=== PATIENT | female | born 1940 | race Caucasian/White ===

== ENCOUNTER 2020-05-08 15:48 | Outpatient (CLI) | payer MEDICARE, SELFPAY ==
--- NOTE | ~2020-05-08 | XR_ITS ---
XR knee RT 3V DATE: 05/08/2020 16:12 INDICATION: Right knee pain for 3 days. Lateral and posterior pain. TECHNIQUE: [place] and standing AP and lateral views COMPARISON: None FINDINGS: There is moderately severe loss of height at the lateral compartment joint space. There is minimal [place]-articular spurring of the patella. No fracture or dislocation. There is mild joint effusion. No radiopaque intra-articular loose body or chondrocalcinosis. IMPRESSION: Osteoarthritis, mild joint effusion Reviewed, dictated and finalized at location A.
== END 2020-05-08 15:49 | disposition home or self-care (01) ==
LOC: ANHIMG 15:52
PROVIDERS: PCP Family Medicine; Visit Provider Family Medicine
DX: M17.11 Unilateral primary osteoarthritis, right knee (principal); M25.461 Effusion, right knee
CPT/HCPCS: 73562

== ENCOUNTER 2020-09-19 09:07 | Outpatient (CLI) | payer MEDICARE, SELFPAY ==
--- NOTE | ~2020-09-19 | MM_ITS ---
EXAMINATION: MM screening joseph BI w rk HISTORY: Screening mammogram TECHNIQUE: Craniocaudal and mediolateral oblique 3-D tomosynthesis images were obtained and synthetic 2-D images were generated. CAD analysis was submitted and interpreted. COMPARISON: 09/09/2019, 09/07/2018, 09/14/2017 bilateral digital screening mammogram examinations BREAST PARENCHYMAL COMPOSITION: There are scattered areas of fibroglandular density. FINDINGS: There is a small group of microcalcifications in the anterior inner right breast; magnifica tion views are recommended. Scattered benign calcifications are noted elsewhere in each breast. There is no evidence of suspicious mass, calcification, or architectural distortion to suggest malig dilma in either breast. There has been no suspicious interval change. IMPRESSION: 1. New small group of microcalcifications in the anterior inner right breast. 2. Recommend diagnostic right mammogram with magnification views. BI-RADS Category 0: Incomplete: Needs additional imaging evaluation. Reviewed, dictated and finalized at location A. AURANT MANAGING PARTNER
== END 2020-09-19 09:08 | disposition home or self-care (01) ==
LOC: ANHIMG 09:14
PROVIDERS: PCP Family Medicine; Visit Provider Family Medicine
DX: Z12.31 Encounter for screening mammogram for malignant neoplasm of breast (principal); R92.8 Other abnormal and inconclusive findings on diagnostic imaging of breast
CPT/HCPCS: 77063; 77067

== ENCOUNTER 2020-11-20 12:46 | Outpatient (CLI) | payer MEDICARE, SELFPAY ==
--- NOTE | ~2020-11-20 | MM_ITS ---
EXAMINATION: MM diagnostic mammo unilat RT HISTORY: Follow-up right breast calcifications TECHNIQUE: Additional 3-D tomosynthesis images of the right breast were performed and synthetic 2-D i mages were generated. CAD analysis was submitted and interpreted. COMPARISON: Comparison to multiple prior studies sequentially, with oldest reviewed study dated 02/2015. BREAST PARENCHYMAL COMPOSITION: Breast composed of scattered areas of fibroglandular density. FINDINGS: There are clustered indeterminate calcifications in the upper inner quadrant of the right b reast, middle third which are likely benign. There are no suspicious masses or architectural distorti on. IMPRESSION: 1. Probable benign right breast calcifications. 2. Recommend 6 month follow-up diagnostic right mammogram BI-RADS category 3, probably benign findings. Reviewed, dictated and finalized at location A. STAVE ASSEMBLER
== END 2020-11-20 12:47 | disposition home or self-care (01) ==
LOC: ANHIMG 12:47
PROVIDERS: PCP Family Medicine; Visit Provider Family Medicine
DX: R92.8 Other abnormal and inconclusive findings on diagnostic imaging of breast (principal)
CPT/HCPCS: 77065

== ENCOUNTER 2021-04-27 11:57 | Outpatient (CLI) | payer MEDICARE, SELFPAY ==
--- NOTE | ~2021-04-27 | US_ITS ---
EXAMINATION: US venous doppler LE RT DATE: 04/27/2021 12:43 INDICATION: Right lower limb pain. TECHNIQUE: Grayscale ultrasound images without and with compression and Doppler ultrasound images of the right lower extremity veins were obtained. COMPARISON: Ultrasound 01/11/2005 FINDINGS: The visualized portions of right common femoral vein, profunda (deep) femoral vein, femoral vein, pop liteal vein, peroneal veins, posterior tibial veins, and greater saphenous vein outflow are patent. IMPRESSION: 1. No deep venous thrombosis. Reviewed, dictated and finalized at location A.
== END 2021-04-27 11:58 | disposition home or self-care (01) ==
LOC: ANHIMG 12:04
PROVIDERS: PCP Family Medicine; Visit Provider Nurse Practitioner Family
DX: M79.604 Pain in right leg (principal)
CPT/HCPCS: 93971

== ENCOUNTER 2021-05-03 10:00 | Inpatient (IN) | payer MEDICARE, SELFPAY ==
[2021-05-03] VITALS (7 sets, daily range): BP systolic 130–156; BP diastolic 64–78; PULSE 16–85; RESP 16–78; TEMP 36.1–37; O2SAT 99–100; BMI 24.2; BMI 24.5
--- NOTE | ~2021-05-03 | CT_ITS ---
EXAMINATION: CT abdomen pelvis w con DATE: 05/03/2021 12:23 INDICATION: Diverticulitis. Diarrhea. TECHNIQUE: Computed tomography (CT) of the abdomen and pelvis was performed with 100 mL Omnipaque 350 intravenous contrast. Automated exposure control and iterative reconstruction technique were employe d. The dose-length product was 334.13 mGy-cm. COMPARISON: CT abdomen and pelvis 06/21/2016 FINDINGS: The visualized portions of the lung bases demonstrate mild atelectasis. No pleural effusion . The heart size is normal. No pericardial effusion. There is a large sliding hiatal hernia. There ar e cysts in the liver measuring up to 3.2 cm. Calcifications in the spleen are consistent with old gra nulomatous disease. There are changes of cholecystectomy. The pancreas and adrenal glands are normal. There is cortical thinning of the kidneys. There are cysts in the kidneys measuring up to 2.0 cm on the left. There is diverticulosis of the colon without evidence of diverticulitis. There is liquid st ool in the colon correlating with the symptom of diarrhea. The appendix is normal. There are no patho logically enlarged lymph nodes. There is no free intraperitoneal fluid. There is a small supraumbilic al ventral hernia containing fat. There is a hernia in posterior right rectus sheath containing fat. There is thoracolumbar dextroscoliosis and mild spondylosis. There is a hemangioma in T10 vertebral b roni. IMPRESSION: 1. Diverticulosis of the colon without evidence of diverticulitis. 2. Large sliding hiatal hernia. Reviewed, dictated and finalized at location A.
--- NOTE | ~2021-05-03 | US_ITS ---
EXAMINATION: US venous doppler [facility] DATE: 05/04/2021 12:20 INDICATION: Lower limb pain. TECHNIQUE: Grayscale ultrasound images without and with compression and Doppler ultrasound images of the bilateral lower extremity veins were obtained. COMPARISON: Ultrasound 04/27/2021 FINDINGS: The visualized portions of right common femoral vein, profunda (deep) femoral vein, femoral vein, pop liteal vein, peroneal veins, posterior tibial veins, and greater saphenous vein outflow are patent. The visualized portions of left common femoral vein, profunda femoral vein, femoral vein, popliteal v ein, peroneal veins, posterior tibial veins, and greater saphenous vein outflow are patent. IMPRESSION: 1. No deep venous thrombosis. Reviewed, dictated and finalized at location A.
--- NOTE | ~2021-05-03 | XR_ITS ---
EXAMINATION: XR knee RT 3V EXAM DATE: 05/03/2021 11:12 INDICATION: Right knee pain, symptoms 2 weeks. TECHNIQUE: Three projections of the right knee. Comparison is made to prior examination from 0. FINDINGS: No evidence osteochondral defect or joint body in the right knee joint. There are no acut e fractures or dislocations identified. There is no subcutaneous gas. There is trace joint effusion . There are no radiopaque foreign bodies. There is mild primary osteoarthritis. IMPRESSION: 1. Mild right knee osteoarthritis. 2. Trace joint effusion. Reviewed, dictated and finalized at location B.
[2021-05-03 11:21] LABS: Basophils Absolute Auto 0.1 K/mm3 (0.0-0.1); Basophils Percent Auto 0.3 % (0.2-1.2); Eosinophils Absolute Auto 0.1 K/mm3 (0-0.3); Eosinophils Percent Auto 0.5 % (0-4.4); Hematocrit 35.5 % (37.0-47.0); Hemoglobin 12.4 g/dL (12.0-15.0); Immature Granulocyte Absolute 0.19 K/mm3 (0.00-0.031); Immature Granulocyte Percent A 1.1 % (0-0.5); Lymphocytes Absolute Auto 1.92 K/mm3 (0.9-3.2); Lymphocytes Percent Auto 10.9 % (18.3-44.2); Mean Corpuscular HGB Conc 34.9 g/dl (32-36); Mean Corpuscular Hemoglobin 31.8 pg (26-34); Mean Platelet Volume 8.4 fl (7.4-10.4); Monocytes Absolute Auto 1.1 K/mm3 (0.1-0.6); Neutrophils Absolute Auto 14.3 K/mm3 (1.3-6.7); Neutrophils Percent Auto 81.2 % (45.5-73.1); Platelet Count Result 420 k/mm3 (150-375); Red Cell Distribution Width 12.6 % (11.5-14.5); White Blood Count 17.6 K/mm3 (4.5-10.0)
[2021-05-03 11:52] LABS: Anion Gap 8 mmol/L (8-16); Blood Urea Nitrogen 5 mg/dL (7-17); Calcium 9.3 mg/dL (8.4-10.2); Carbon Dioxide 27 mmol/L (22-30); Chloride 98 mmol/L (98-107); Estimated CRCL calculation 70 ml/min; Estimated Glomerular Filt Rate > 60; Glucose 113 mg/dL (65-105); Potassium 2.5 mmol/L (3.4-5.0); Sodium 133 mmol/L (137-145)
--- NOTE | 2021-05-03 11:54 | ECG_ITS ---
Measurements Intervals [place] Rate: 72 P: 28 MI: 220 QRS: -15 QRSD: 89 T: -26 QT: 381 QTc: 419 Interpretive Statements SINUS RHYTHM WITH FIRST DEGREE AV BLOCK VOLTAGE CRITERIA FOR LVH MINIMAL Q WAVES- HIGH LATERAL LEADS NONSPECIFIC T-WAVE ABNORMALITY- ANTEROLAT/INF LEADS BASELINE ARTIFACT- I, III, AVL, AVF ABNORMAL ECG Electronically Signed On 05-03-2021 15:30:06 CDT by Cain Pederson D.O.
[2021-05-03] MEDS: SODIUM CHLORIDE 0.9% IV 1,000 ML 999 ML IV CONT (12:00)
[2021-05-03] MEDS: KETOROLAC 15 MG/ML VIAL (*BKC) 10 MG IV PUSH (12:01)
[2021-05-03 12:03] LABS: Alanine Aminotransferase 6 U/L (4-35); Albumin Level 3.2 g/dL (3.5-5.1); Alkaline Phosphatase 58 U/L (38-126); Aspartate Amino Transferase 16 U/L (14-36); Bilirubin,Total 0.6 mg/dL (0.2-1.3); Lipase 292 U/L (23-300)
[2021-05-03 12:13] LABS: Add Urine Microscopic? YES; Appearance Urine Clear (Clear); Bilirubin Urine Negative (Negative); Blood Urine Negative (Negative); Color Urine Yellow (Yellow); Glucose Urine UA Negative (Negative); Ketones Urine Trace mg/dL (Negative); Leukocyte Esterase Ur Trace LEU/UL (Negative); Nitrate Urine Negative (Negative); Protein Urine 1+ mg/dL (Negative); RBC Urine 0-2 /hpf (0-2); Squamous Epithelial Cell Urine Rare /hpf (Few); Urobilinogen Urine Negative mg/dL (<2.0); WBC Urine 16-20 /hpf
--- NOTE | 2021-05-03 13:18 | ED.GENADULT ---
HPI - General Adult General Chief complaint: Extremity Injury, Lower Stated complaint: leg pain Time Seen by Provider: 05/03/21 10:07 Source: patient, family, RN notes reviewed and old records reviewed Mode of arrival: ambulatory Limitations: no limitations History of Present Illness HPI narrative: Patient is 80-year-old female who presents to emergency department for evaluation of weakness over the last week noting that she is currently being treated for urinary tract infection. Patient notes that she has had some mild discomfort in the left flank area over the last 2 days, patient denies fever vomiting notes that she has had a few loose stools, patient also notes that she has been having left buttock pain rating down the leg involving the left leg for the last several days has been rehabbing from a right knee injury which is caused her gait to be off and now she was having more more difficulty with getting around secondary to her leg issues and weakness, Related Data Home Medications Medication Instructions Recorded Confirmed esomeprazole magnesium 20 mg 40 mg PO DAILY cap 11/15/19 04/27/21 capsule,delayed release metoprolol tartrate 50 mg tablet 50 mg PO BID tablet 04/18/21 04/27/21 Allergies Allergy/AdvReac Type Severity Reaction Status Date / Time Antihistamines - Alkylamine Allergy Unknown Unknown Verified 04/27/21 11:10 Sulfa (Sulfonamide Allergy Unknown Unknown Verified 04/27/21 11:10 Antibiotics) ANTIHISTAMINE AdvReac Mild NERVOUSNESS, Uncoded 04/27/21 11:10 AGITATION Review of Systems Review of Systems: All systems reviewed & are unremarkable except as noted in HPI and below PMFSH Past Medical History Medical History Esophagitis Essential (primary) hypertension GERD without esophagitis Hiatal hernia History of esophageal stricture Hypertension Hypertriglyceridemia Intermittent low back pain Osteopenia Sciatica Surgical History Surgical History History of cholecystectomy History of esophageal dilatation 1990 History of hysterectomy 1989 History of partial thyroidectomy Family History Family History Father Family history of cardiovascular disease Mother Carcinoma of colon Social History Social History Smoking status: Never smoker Second hand tobacco smoke exposure: No Alcohol intake: never Substance use: never Substance use type: does not use Gender identity (if verbalized by the patient): Female Exam Narrative: Exam Narrative: GENERAL: Well-appearing, well-nourished, and in no acute distress. HEAD: Normocephalic, atraumatic. EYES: PERRLA and EOMI. ENT: Nares clear, no rhinorrhea or epistaxis. Mucous membranes moist. CHEST: Clear to auscultation. No respiratory distress. No wheezes rales or rhonchi HEART: Regular rate and rhythm. No murmur heard. Normal peripheral pulses. ABDOMEN: Soft, left flank tenderness no rebound or guarding, nondistended EXTREMITIES: Normal range of motion. No edema. SKIN: Warm, dry, no rash. NEURO: No focal deficits. Alert and oriented x3. Cranial nerves II through XII grossly intact. Normal speech. Neurovascularly intact. Capillary refill less than 2-second PSYCH: Normal mood and affect. Course Course Emergency Course: Patient evaluated in the emergency department for lower extremity pain and weakness found to have hypokalemia and continued urinary tract infection will be brought in hospital for these issues patient given potassium in the emergency department made aware of her case findings treatment plan and diagnosis and is agreeing to this plan Consultations Consultation #1: Discussed case with Aide the hospitalist who has agreed to accept the patient Date: 05/03/21 Vital Signs Vital signs: Vital Si
[2021-05-03 13:49] LABS: Magnesium 1.1 mg/dL (1.6-2.3); Phosphorus 3.1 mg/dL (2.5-4.5)
[2021-05-03] MEDS: LACTATED RINGERS 1,000 ML 75 ML IV CONT (14:01)
--- NOTE | 2021-05-03 14:15 | PCOTNOTE ---
OT evaluation attempted, patient not yet admitted to unit from ED. Will attempt at later time.
--- NOTE | 2021-05-03 15:12 | ADMGEN ---
This patient, Shonda Min, was admitted to [facility] Surg Room 312-01. Patient/family oriented to hospital policies and general routines including ID bracelet, bed and alarms, visiting hours, pain management, procedures, bathroom and other care routines, personal items, smoking policy, room service/diet, and visiting hours. Information on how to activate the Rapid Response Team has been discussed. Patient/Family are encouraged to report perceived risks to care and to ask questions if they do not understand what they are told or what they should do.
[2021-05-03] MEDS: MAGNESIUM SULFATE 3GM/D5W100ML 3 GM/100 ML BAG IVPB (17:12)
--- NOTE | 2021-05-03 18:00 | PM.IMHP ---
H&P: HPI History of Present Illness Date/Time: 05/03/21 18:00 Chief Complaint: Weakness. Narrative: This is a 80-year-old female with hypertension and GERD who presented to the emergency department earlier today via private vehicle from home for evaluation of generalized weakness. She recently finished a course of cefdinir for a urinary tract infection and she reports improvement in her symptoms though continues to have mild urgency and incontinence. Sometime during her treatment she began experiencing pain in her right knee and was told by her primary care provider that she must have twisted it and she has been treating that symptomatically with improvement however more recently she has been having discomfort in her left leg which she believes is due to compensation for the right knee pain. The patient believes that this is caused her to become more weak and she came in today for evaluation. Both her potassium and magnesium levels were quite low and on review of previous labs it looks like she frequently has mild electrolyte abnormalities though she continues to be on triamterene/hydrochlorothiazide. With further questioning she also mentions having frequent loose stools, typically occurring within about 30 minutes of eating a meal. Over the weekend she had increasing episodes of diarrhea, approximately 12 in a 24 hour time period, even occurring at night. She has been taking Imodium and another anti diarrheal that she cannot recall the name of with some improvement in her diarrhea though it remains. Her stool is foul smelling and dark brown/green in color. No fever, chills, or sweats. No melena or hematochezia. No abdominal pain or cramping. She has no sick contacts. No history of C diff. Review of Systems Review of Systems: Narrative: 12 systems were reviewed with pertinent positives and negatives as per HPI. No recent falls. She denies lightheadedness and dizziness. No paresthesias or focal weakness. She denies saddle anesthesia. No cold or flu symptoms. No known exposure to those positive for COVID-19. No history of gout. No history of VTE. No melena or hematochezia. She belches frequently but states her GERD symptoms are well controlled. She has her head of bed elevated which helps her symptoms. Reports frequent lower extremity edema which improves by morning. Except as documented, all other systems were reviewed and are negative. [facility] Past Medical History Medical History (Updated 05/03/21 @ 22:15 by Aide Sanchez PA-C) Esophagitis Essential hypertension Gastroesophageal reflux disease Hiatal hernia History of esophageal stricture History of kidney stones Hypertension Hypertriglyceridemia Intermittent low back pain Osteopenia Sciatica Surgical History Surgical History (Updated 05/03/21 @ 16:56 by Aide Sanchez PA-C) History of cholecystectomy History of colonoscopy with polypectomy History of esophageal dilatation (~1990) History of hysterectomy (~1989) History of partial thyroidectomy Left. Family History Family History Father Family history of cardiovascular disease Mother Carcinoma of colon Sibling Heart attack Social History Social History Social History: Surrogate decision maker: Morris Min, spouse. Code status: Full code. Smoking status: Never smoker Second hand tobacco smoke exposure: No Alcohol intake: never Substance use: never Substance use type: does not use Additional living arrangements comments: The patient lives in [place] with her . Additional occupation/education comments: Retired. Sexual Orientation (if Verbalized by the Patient): . Meds Home Medications and Allergies Home Medications Medication Instructions Recorded Confirmed Type esomeprazole magnesium 20 mg 40 mg PO DAILY cap 11/15/19 05/03/21 History capsule
[2021-05-03 19:09] LABS: CRP 7.3 mg/dL (<1.0)
[2021-05-03] MEDS: METOPROLOL TARTRATE 50 MG TAB PO (20:29)
[2021-05-03] MEDS: ACETAMINOPHEN 325 MG TABLET 650 MG PO (20:31)
[2021-05-03 22:28] LABS: Anion Gap 6 mmol/L (8-16); Blood Urea Nitrogen 4 mg/dL (7-17); Calcium 8.9 mg/dL (8.4-10.2); Carbon Dioxide 25 mmol/L (22-30); Chloride 100 mmol/L (98-107); Estimated CRCL calculation 59 ml/min; Estimated Glomerular Filt Rate > 60; Glucose 105 mg/dL (65-105); Magnesium 1.9 mg/dL (1.6-2.3); Potassium 2.6 mmol/L (3.4-5.0); Sodium 131 mmol/L (137-145)
[2021-05-03] MEDS: POTASSIUM CHLORIDE 20 MEQ PACKET (FOR LIQUID) PO (23:10)
[2021-05-04] VITALS (10 sets, daily range): BP systolic 119–148; BP diastolic 58–78; PULSE 72–92; RESP 18–20; TEMP 36.4–37.1; O2SAT 97–100
[2021-05-04] MEDS: LACTATED RINGERS 1,000 ML 75 ML IV CONT (03:35)
[2021-05-04] MEDS: ACETAMINOPHEN 325 MG TABLET 650 MG PO ×2 (03:37→18:01)
[2021-05-04 06:28] LABS: Alkaline Phosphatase 57 U/L (38-126); Anion Gap 7 mmol/L (8-16); Aspartate Amino Transferase 13 U/L (14-36); Bilirubin,Total 0.4 mg/dL (0.2-1.3); Blood Urea Nitrogen 2 mg/dL (7-17); Calcium 9.1 mg/dL (8.4-10.2); Carbon Dioxide 25 mmol/L (22-30); Chloride 100 mmol/L (98-107); Estimated CRCL calculation 59 ml/min; Estimated Glomerular Filt Rate > 60; Glucose 102 mg/dL (65-105); Potassium 2.9 mmol/L (3.4-5.0); Sodium 132 mmol/L (137-145)
[2021-05-04 06:33] LABS: Basophils Percent Auto 0.3 % (0.2-1.2); Eosinophils Absolute Auto 0.1 K/mm3 (0-0.3); Eosinophils Percent Auto 0.7 % (0-4.4); Hematocrit 34.3 % (37.0-47.0); Hemoglobin 11.6 g/dL (12.0-15.0); Immature Granulocyte Absolute 0.13 K/mm3 (0.00-0.031); Immature Granulocyte Percent A 0.9 % (0-0.5); Lymphocytes Absolute Auto 2.05 K/mm3 (0.9-3.2); Lymphocytes Percent Auto 14.7 % (18.3-44.2); Mean Corpuscular HGB Conc 33.8 g/dl (32-36); Mean Corpuscular Hemoglobin 31.5 pg (26-34); Mean Corpuscular Volume 93.2 fl (80-100); Mean Platelet Volume 8.8 fl (7.4-10.4); Monocytes Absolute Auto 0.8 K/mm3 (0.1-0.6); Monocytes Percent Auto 5.7 % (2.6-8.5); Neutrophils Absolute Auto 10.8 K/mm3 (1.3-6.7); Neutrophils Percent Auto 77.7 % (45.5-73.1); Platelet Count Result 387 k/mm3 (150-375); Red Blood Count 3.68 M/mm3 (4.2-5.4); Red Cell Distribution Width 12.4 % (11.5-14.5)
[2021-05-04 06:35] LABS: Magnesium 1.8 mg/dL (1.6-2.3)
[2021-05-04] MEDS: METOPROLOL TARTRATE 50 MG TAB PO ×2 (08:13→20:08)
[2021-05-04] MEDS: PANTOPRAZOLE 40 MG TABLET PO (08:14)
[2021-05-04] MEDS: POTASSIUM CHLORIDE 20 MEQ PACKET (FOR LIQUID) PO (08:14)
[2021-05-04] MEDS: ENOXAPARIN 40 MG/0.4 ML SYRINGE SUB-Q (08:19)
[2021-05-04 10:32] LABS: Alanine Aminotransferase 6 U/L (4-35)
--- NOTE | 2021-05-04 13:43 | P.PNIM_ITS ---
Progress Note: A&P Assessment and Plan (1) Recent urinary tract infection: Code(s): Z87.440 - Personal history of urinary (tract) infections Status: Acute Assessment and Plan: * Patient finished a course of cefdinir. * Trace leukocyte esterase and 16 to 20 WBC's noted on urinalysis * ceftriaxone 1g daily * urine culture pending * Deescalate antibiotics with resulted cultures * LR 75ml/hr for hydration (2) Hypokalemia: Code(s): E87.6 - Hypokalemia Status: Acute Assessment and Plan: * Potassium 2.9 * 20mcq of potassium replaced * potassium scheduled 20mcg daily * trend labs * labs in the am (3) Hypomagnesemia: Code(s): E83.42 - Hypomagnesemia Status: Acute Assessment and Plan: * Mag 1.8 today * Replace as needed * Trend labs * labs in the am (4) Leukocytosis: Code(s): D72.829 - Elevated white blood cell count, unspecified Status: Acute Assessment and Plan: * WBC 14 today * Labs in the am * Trend labs * Could be from UTI, C. Diff, or inflammatory process * C.Diff is pending (5) Essential hypertension: Code(s): I10 - Essential (primary) hypertension Status: Acute Assessment and Plan: * BP 119/61 * Continue home metoprolol 50 BID * Trend blood pressure * Adjust medication as needed (6) Generalized weakness: Code(s): R53.1 - Weakness Status: Acute Assessment and Plan: * Likely due to electrolyte abnormalities and suspected underlying infection. * No focal findings. * PT/OT consulted. (7) Lower extremity edema: Code(s): R60.0 - Localized edema Status: Acute Assessment and Plan: * It sounds as though she suffers from dependent edema and at times heat induced edema. * Given pain in both legs will obtain * venous Doppler ultrasounds showed no signs of DVT Subjective Date/time seen: 05/04/21 13:15 Interval history: This is a 80-year-old female with hypertension and GERD who presented to the emergency department from home for evaluation of generalized weakness. Today patient stated that she is feeling a little better, but she is still having several episodes of diarrhea, that she stated to have changed to green and watery with floating particles. She stated that she has had about 4 episodes of diarrhea already today. Her appetite is borderline. She denies chest pain, shortness of breath, nausea, vomiting, dizziness, constipation, or headache. She did state that she does have LLQ pain that is cramping in nature. Review of Systems Review of Systems: All systems reviewed & are unremarkable except as noted in HPI and below Exam Const: General: cooperative, healthy appearing, no acute distress, well developed, alert and awake Nutritional Appearance: average body habitus and well nourished Orientation/consciousness: oriented to person, oriented to place, oriented to time and patient oriented x3 Limitations: no limitations HENMT: Head: normal to inspection Ears: hearing grossly normal bilaterally General nose exam: Normal external nose present Mouth: Yes Normal oral and palatal mucosa present, Yes lip normal and Yes tongue normal Teeth and gingiva: abnormal tooth and associated gingiva and poor dentition Eyes: General: appearance normal, both eyes and all related structures Ne
--- NOTE | 2021-05-04 13:43 | PM.IMPN ---
Progress Note: A&P Assessment and Plan (1) Recent urinary tract infection: Code(s): Z87.440 - Personal history of urinary (tract) infections Status: Acute Assessment and Plan: Patient finished a course of cefdinir. Trace leukocyte esterase and 16 to 20 WBC's noted on urinalysis ceftriaxone 1g daily urine culture pending Deescalate antibiotics with resulted cultures LR 75ml/hr for hydration (2) Hypokalemia: Code(s): E87.6 - Hypokalemia Status: Acute Assessment and Plan: Potassium 2.9 20mcq of potassium replaced potassium scheduled 20mcg daily trend labs labs in the am (3) Hypomagnesemia: Code(s): E83.42 - Hypomagnesemia Status: Acute Assessment and Plan: Mag 1.8 today Replace as needed Trend labs labs in the am (4) Leukocytosis: Code(s): D72.829 - Elevated white blood cell count, unspecified Status: Acute Assessment and Plan: WBC 14 today Labs in the am Trend labs Could be from UTI, C. Diff, or inflammatory process C.Diff is pending (5) Essential hypertension: Code(s): I10 - Essential (primary) hypertension Status: Acute Assessment and Plan: BP 119/61 Continue home metoprolol 50 BID Trend blood pressure Adjust medication as needed (6) Generalized weakness: Code(s): R53.1 - Weakness Status: Acute Assessment and Plan: Likely due to electrolyte abnormalities and suspected underlying infection. No focal findings. PT/OT consulted. (7) Lower extremity edema: Code(s): R60.0 - Localized edema Status: Acute Assessment and Plan: It sounds as though she suffers from dependent edema and at times heat induced edema. Given pain in both legs will obtain venous Doppler ultrasounds showed no signs of DVT Subjective Date/time seen: 05/04/21 13:15 Interval history: This is a 80-year-old female with hypertension and GERD who presented to the emergency department from home for evaluation of generalized weakness. Today patient stated that she is feeling a little better, but she is still having several episodes of diarrhea, that she stated to have changed to green and watery with floating particles. She stated that she has had about 4 episodes of diarrhea already today. Her appetite is borderline. She denies chest pain, shortness of breath, nausea, vomiting, dizziness, constipation, or headache. She did state that she does have LLQ pain that is cramping in nature. Review of Systems Review of Systems: All systems reviewed & are unremarkable except as noted in HPI and below Exam Const: General: cooperative, healthy appearing, no acute distress, well developed, alert and awake Nutritional Appearance: average body habitus and well nourished Orientation/consciousness: oriented to person, oriented to place, oriented to time and patient oriented x3 Limitations: no limitations HENMT: Head: normal to inspection Ears: hearing grossly normal bilaterally General nose exam: Normal external nose present Mouth: Yes Normal oral and palatal mucosa present, Yes lip normal and Yes tongue normal Teeth and gingiva: abnormal tooth and associated gingiva and poor dentition Eyes: General: appearance normal, both eyes and all related structures Neck: Neck: normal visual inspection, full ROM, trachea midline and supple Chest: Chest palpation & inspection: normal inspection of the chest Resp: Effort & Inspection: normal respiratory effort and able to speak in complete sentences Auscultation: clear to auscultation bilaterally Cardio: Jugular venous distension: no JVD Rate: regular rate Rhythm: regular rhythm Heart sounds: S1 normal heart sound present and S2 normal heart sound present Peripheral pulses: Peripheral pulses 2+ throughout GI: Inspection: normal to inspection GI Palp: Yes Soft to palpation and No
--- NOTE | 2021-05-04 14:45 | PCNSR ---
On 05/04/21, the student, [Saloni Barry ], provided care and completed [facility] documentation on this patient. I have reviewed the student's documentation and agree with the findings.
[2021-05-04 17:06] LABS: Potassium 2.8 mmol/L (3.4-5.0)
[2021-05-04] MEDS: POTASSIUM CHLORIDE 20 MEQ TABLET 40 MEQ PO (18:00)
[2021-05-05] VITALS (8 sets, daily range): BP systolic 140–169; BP diastolic 75–88; PULSE 71–85; RESP 20; TEMP 36.6; O2SAT 97–99
[2021-05-05 06:32] LABS: Basophils Percent Auto 0.3 % (0.2-1.2); Eosinophils Absolute Auto 0.1 K/mm3 (0-0.3); Eosinophils Percent Auto 1.2 % (0-4.4); Hematocrit 34.2 % (37.0-47.0); Hemoglobin 11.4 g/dL (12.0-15.0); Immature Granulocyte Absolute 0.07 K/mm3 (0.00-0.031); Immature Granulocyte Percent A 0.7 % (0-0.5); Lymphocytes Absolute Auto 2.08 K/mm3 (0.9-3.2); Lymphocytes Percent Auto 19.5 % (18.3-44.2); Mean Corpuscular HGB Conc 33.3 g/dl (32-36); Mean Corpuscular Volume 92.9 fl (80-100); Mean Platelet Volume 8.7 fl (7.4-10.4); Monocytes Absolute Auto 0.6 K/mm3 (0.1-0.6); Monocytes Percent Auto 5.9 % (2.6-8.5); Neutrophils Absolute Auto 7.7 K/mm3 (1.3-6.7); Neutrophils Percent Auto 72.4 % (45.5-73.1); Platelet Count Result 390 k/mm3 (150-375); Red Blood Count 3.68 M/mm3 (4.2-5.4); Red Cell Distribution Width 12.4 % (11.5-14.5); White Blood Count 10.7 K/mm3 (4.5-10.0)
[2021-05-05 06:41] LABS: Alkaline Phosphatase 54 U/L (38-126); Anion Gap 6 mmol/L (8-16); Aspartate Amino Transferase 14 U/L (14-36); Bilirubin,Total 0.4 mg/dL (0.2-1.3); Blood Urea Nitrogen 2 mg/dL (7-17); Calcium 9.7 mg/dL (8.4-10.2); Carbon Dioxide 28 mmol/L (22-30); Chloride 100 mmol/L (98-107); Estimated CRCL calculation 59 ml/min; Estimated Glomerular Filt Rate > 60; Glucose 100 mg/dL (65-105); Magnesium 1.5 mg/dL (1.6-2.3); Potassium 3.5 mmol/L (3.4-5.0); Sodium 134 mmol/L (137-145)
[2021-05-05 07:11] LABS: Alanine Aminotransferase < 6 U/L (4-35)
[2021-05-05] MEDS: PANTOPRAZOLE 40 MG TABLET PO (08:08)
[2021-05-05] MEDS: METOPROLOL TARTRATE 50 MG TAB PO (08:08)
[2021-05-05] MEDS: POTASSIUM CHLORIDE 20 MEQ PACKET (FOR LIQUID) PO (08:08)
--- NOTE | 2021-05-05 17:43 | P.PNIM_ITS ---
Progress Note: A&P Assessment and Plan (1) Recent urinary tract infection: Code(s): Z87.440 - Personal history of urinary (tract) infections Status: Acute Assessment and Plan: * Patient finished a course of cefdinir. * Trace leukocyte esterase and 16 to 20 WBC's noted on urinalysis * ceftriaxone 1g daily * urine culture pending * Deescalate antibiotics with resulted cultures * LR 75ml/hr for hydration (2) Hypokalemia: Code(s): E87.6 - Hypokalemia Status: Acute Assessment and Plan: * Potassium 2.9 * 20mcq of potassium replaced * potassium scheduled 20mcg daily * trend labs * labs in the am (3) Hypomagnesemia: Code(s): E83.42 - Hypomagnesemia Status: Acute Assessment and Plan: * Mag 1.8 today * Replace as needed * Trend labs * labs in the am (4) Leukocytosis: Code(s): D72.829 - Elevated white blood cell count, unspecified Status: Acute Assessment and Plan: * WBC 14 today * Labs in the am * Trend labs * Could be from UTI, C. Diff, or inflammatory process * C.Diff is pending (5) Essential hypertension: Code(s): I10 - Essential (primary) hypertension Status: Acute Assessment and Plan: * BP 119/61 * Continue home metoprolol 50 BID * Trend blood pressure * Adjust medication as needed (6) Generalized weakness: Code(s): R53.1 - Weakness Status: Acute Assessment and Plan: * Likely due to electrolyte abnormalities and suspected underlying infection. * No focal findings. * PT/OT consulted. (7) Lower extremity edema: Code(s): R60.0 - Localized edema Status: Acute Assessment and Plan: * It sounds as though she suffers from dependent edema and at times heat induced edema. * Given pain in both legs will obtain * venous Doppler ultrasounds showed no signs of DVT Subjective Date/time seen: 05/05/21 17:43 Interval history: This is a 80-year-old female with hypertension and GERD who presented to the emergency department from home for evaluation of generalized weakness and diarrhea. 05/05: Review of Systems Review of Systems: All systems reviewed & are unremarkable except as noted in HPI and below Exam Narrative: Exam Narrative: General: well-developed elderly female sitting up in bed in no distress. Weight: 66.9 kg. BMI: 24.5. HEENT: PERRL, EOMI. Sclerae anicteric. [place] mucous membranes. Neck: Supple. No JVD. Respiratory: Lungs are clear to auscultation bilaterally. Cardiovascular: Regular rate and rhythm with S1-S2. Gastrointestinal: Abdomen is soft, nontender, and nondistended with positive bowel sounds. No voluntary guarding or rebound tenderness. No CVA tenderness. Skin: Warm and dry. No rash or lesions on limited exam. Extremities: No cyanosis or clubbing. 1+ pedal edema to mid traylor bilaterally. Negative Augustina sign bilaterally. Radial and pedal pulses intact. Musculoskeletal: Strength 5/5 in upper and lower extremities. Neurological: Alert. Cranial nerves 2-12 are grossly intact. No gross focal deficits to casual conversation. Psychiatric: Pleasant and cooperative with normal mood and affect. Judgment and insight intact. Objective Data Vital Signs Vital Signs: Vital Signs - 24 hr 05/04/21 20:00
--- NOTE | 2021-05-05 17:43 | PM.IMPN ---
Progress Note: A&P Assessment and Plan (1) Recent urinary tract infection: Code(s): Z87.440 - Personal history of urinary (tract) infections Status: Acute Assessment and Plan: Patient finished a course of cefdinir. Trace leukocyte esterase and 16 to 20 WBC's noted on urinalysis ceftriaxone 1g daily urine culture pending Deescalate antibiotics with resulted cultures LR 75ml/hr for hydration (2) Hypokalemia: Code(s): E87.6 - Hypokalemia Status: Acute Assessment and Plan: Potassium 2.9 20mcq of potassium replaced potassium scheduled 20mcg daily trend labs labs in the am (3) Hypomagnesemia: Code(s): E83.42 - Hypomagnesemia Status: Acute Assessment and Plan: Mag 1.8 today Replace as needed Trend labs labs in the am (4) Leukocytosis: Code(s): D72.829 - Elevated white blood cell count, unspecified Status: Acute Assessment and Plan: WBC 14 today Labs in the am Trend labs Could be from UTI, C. Diff, or inflammatory process C.Diff is pending (5) Essential hypertension: Code(s): I10 - Essential (primary) hypertension Status: Acute Assessment and Plan: BP 119/61 Continue home metoprolol 50 BID Trend blood pressure Adjust medication as needed (6) Generalized weakness: Code(s): R53.1 - Weakness Status: Acute Assessment and Plan: Likely due to electrolyte abnormalities and suspected underlying infection. No focal findings. PT/OT consulted. (7) Lower extremity edema: Code(s): R60.0 - Localized edema Status: Acute Assessment and Plan: It sounds as though she suffers from dependent edema and at times heat induced edema. Given pain in both legs will obtain venous Doppler ultrasounds showed no signs of DVT Subjective Date/time seen: 05/05/21 17:43 Interval history: This is a 80-year-old female with hypertension and GERD who presented to the emergency department from home for evaluation of generalized weakness and diarrhea. 05/05: Review of Systems Review of Systems: All systems reviewed & are unremarkable except as noted in HPI and below Exam Narrative: Exam Narrative: General: well-developed elderly female sitting up in bed in no distress. Weight: 66.9 kg. BMI: 24.5. HEENT: PERRL, EOMI. Sclerae anicteric. [place] mucous membranes. Neck: Supple. No JVD. Respiratory: Lungs are clear to auscultation bilaterally. Cardiovascular: Regular rate and rhythm with S1-S2. Gastrointestinal: Abdomen is soft, nontender, and nondistended with positive bowel sounds. No voluntary guarding or rebound tenderness. No CVA tenderness. Skin: Warm and dry. No rash or lesions on limited exam. Extremities: No cyanosis or clubbing. 1+ pedal edema to mid traylor bilaterally. Negative Augustina sign bilaterally. Radial and pedal pulses intact. Musculoskeletal: Strength 5/5 in upper and lower extremities. Neurological: Alert. Cranial nerves 2-12 are grossly intact. No gross focal deficits to casual conversation. Psychiatric: Pleasant and cooperative with normal mood and affect. Judgment and insight intact. Objective Data Vital Signs Vital Signs: Vital Signs - 24 hr 05/04/21 20:00 05/04/21 22:00 05/05/21 00:00 Temperature 97.7 F Pulse Rate 84 75 74 Respiratory Rate 20 Blood Pressure 147/78 H Pulse Oximetry 98 05/05/21 04:00 05/05/21 06:00 05/05/21 08:00 Temperature 97.9 F Pulse Rate 71 77 83 Respiratory Rate 20 Blood Pressure 169/75 H Pulse Oximetry 97 05/05/21 08:08 05/05/21 12:00 05/05/21 14:00 Temperature 97.8 F Pulse Rate 80 72 85 Respiratory Rate 20 Blood Pressure 140/88 Pulse Oximetry 99 05/05/21 16:00 Temperature Pulse Rate 79 Respiratory Rate Blood Pressure Pulse Oximetry Intake/Output Intake/Output: Intake & Output
[2021-05-05] MEDS: MAGNESIUM SULF 2 GM/WATER 50ML 2 GM/50 ML BAG IVPB (17:53)
--- NOTE | 2021-05-05 18:04 | PM.DS ---
DS: Admitting Diagnosis Admitting Diagnosis Admitting Diagnosis: Acute hypokalemia DS: Discharge Diagnosis Discharge Diagnosis (1) Generalized weakness: Code(s): R53.1 - Weakness Status: Acute (2) Hypomagnesemia: Code(s): E83.42 - Hypomagnesemia Status: Acute (3) Hypokalemia: Code(s): E87.6 - Hypokalemia Status: Acute (4) Diarrhea: Code(s): R19.7 - Diarrhea, unspecified Status: Acute (5) Gastroesophageal reflux disease: Code(s): K21.9 - Gastro-esophageal reflux disease without esophagitis Status: Acute (6) Essential (primary) hypertension: Code(s): I10 - Essential (primary) hypertension Status: Acute DS: Summary Hospital Course Reason for hospitalization: Weakness Hospital Course: patient admitted with generalized weakness and diarrhea. Found to be hypokalemic with potassium of 2.5. With IV and p.o. supplementation of potassium improved. Potassium was 3.5 on day of discharge. Magnesium was 1.5. She received to supplement a dose of 2 g IV on day of discharge. Her diarrhea had abated. Was tolerating oral foods. No pain. Steady on her feet. Wished to go home. She received ceftriaxone IV upon admission due to urinary symptoms. However her urine culture returned negative. Status at Discharge Functional status at discharge: independent ambulation Overall status at discharge: patient is back to baseline Time Spent with Patient Time attestation: Total time spent providing and/or coordinating discharge services: Time spent: Greater than 30 minutes Exam Narrative: Exam Narrative: HEENT: PERRL, sclerae nonicteric, pharyngeal mucosa pink and intact NECK: No JVD CHEST: Clear to auscultation. Normal effort. HEART: NL S1/S2, regular, no murmur ABDOMEN: BS+, soft, nontender, no mass, no bruits EXTREMITIES: No cyanosis, edema, or clubbing NEUROLOGIC: CN intact and symmetric to inspection. MUSCULOSKELETAL: Tone and strength symmetric. PSYCH: Alert. Oriented to person, place, and time. DS: Data Data Completed and Pending Labs on day of discharge: Labs from last 24 hours 05/05/21 05/05/21 05:53 05:53 WBC 10.7 H RBC 3.68 L Hgb 11.4 L Hct 34.2 L MCV 92.9 MCH 31.0 MCHC 33.3 RDW 12.4 Plt Count 390 H MPV 8.7 Immature Gran % (Auto) 0.7 H Neut % (Auto) 72.4 Lymph % (Auto) 19.5 [place] % (Auto) 5.9 Eos % (Auto) 1.2 Baso % (Auto) 0.3 Lymph # (Auto) 2.08 [place] # (Auto) 0.6 Eos # (Auto) 0.1 Baso # (Auto) 0.0 Abs Immat Gran (auto) 0.07 H Absolute Neuts (auto) 7.7 H Absolute Nucleated RBC 0.0 Nucleated RBC % 0.0 Sodium 134 L Potassium 3.5 Chloride 100 Carbon Dioxide 28 Anion Gap 6 L BUN 2 L Creatinine 0.60 L Estim Creat Clear Calc 59 Estimated GFR > 60 Glucose 100 Calcium 9.7 Magnesium 1.5 L Total Bilirubin 0.4 AST 14 ALT < 6 Alkaline Phosphatase 54 Total Protein 6.0 L Albumin 3.0 L Discharge Plan Discharge Consulting providers: Obie Vasques Discharging Clinician: Colin Geronimo Patient Disposition: Home, Self-Care Activity: as tolerated Diet: heart healthy Patient Instructions: Antibiotic Form, Hypokalemia (GEN), Pain Management (GEN), Weakness (GEN) Stand Alone Forms: General Discharge Information Follow-up/Referrals: Myah Pepe MD [Primary Care Provider] - 1 Week Discharge Medications: New acetaminophen [Mapap (acetaminophen)] 325 mg Tablet 650 mg PO Q6H PRN (Reason: Mild Pain (1-3) Or Fever) Qty: 0 RF: 0 Skulpt 1.5 billion cell capsule See Rx Instructions .ROUTE .COMPLEX Qty: 30 RF: 0 Continued metoprolol tartrate 50 mg tablet 50 mg PO BID RF: 0 potassium chloride 20 mEq/15 mL liquid 20 meq PO DAILY RF: 0 esomeprazole magnesium [Nexium 24HR] 20 mg capsule,delayed release(DR/EC) 40 mg PO DAILY RF: 0 diphenoxylate-atropine [Lomotil] 2.5-0.025 mg
== END 2021-05-05 18:55 | disposition home or self-care (01) | DRG 641 ==
LOC: ANHED 13:24 → ANH3MEDSUR 05-04 05:02
PROVIDERS: Emergency Medicine Emergency Medical Services; Nurse Practitioner; Physician Assistant; Admitting Provider Internal Medicine; Emergency Provider Emergency Medicine; PCP Family Medicine; Visit Provider Internal Medicine
DX: E87.6 Hypokalemia (principal); E83.42 Hypomagnesemia; K21.9 Gastro-esophageal reflux disease without esophagitis; I10 Essential (primary) hypertension; R19.7 Diarrhea, unspecified; K44.9 Diaphragmatic hernia without obstruction or gangrene; M85.80 Other specified disorders of bone density and structure, unspecified site; Z90.49 Acquired absence of other specified parts of digestive tract; Z90.710 Acquired absence of both cervix and uterus; Z87.440 Personal history of urinary (tract) infections
CPT/HCPCS: 36415; 73562; 74177; 80048; 80053; 80076; 81001; 83690; 83735; 84100; 84132; 85025; 86140; 87086; 87324; 93005; 93970; 96374; 96375; 97110; 97116; 97161; 97165; 97530; 97535; 99285; A9270; J0696; J1170; J1650; J1885; J3475; J3480; J7030; J7120; Q9967

== ENCOUNTER 2021-08-23 00:51 | Day surgery (SDC) | payer MEDICARE, SELFPAY ==
[2021-08-07 13:22] VITALS: BMI 23.3
[2021-08-23 07:19] VITALS: BP 193/87; PULSE 94; RESP 18; TEMP 36.6; O2SAT 98
[2021-08-23] MEDS: LACTATED RINGERS 1,000 ML 150 ML IV CONT (07:28)
--- NOTE | 2021-08-23 08:04 | WPDANESEPPF ---
Anes - Initial Pre Proc Eval Procedure: Operation Date: 08/23/21 08:30 Proposed Procedures p Colonoscopy - Raymundo Ruiz MD Date/Time: 08/23/21 08:04 Surgeon: Raymundo Ruiz MD Pre Op Diagnosis: hx of colon polyps, diarrhea Patient Data Age: 81 Gender: F Height: 1.65 m Weight: 63.8 kg Last Vital Signs Temp 97.8 F 08/23/21 07:19 Pulse 94 08/23/21 07:19 Resp 18 08/23/21 07:19 BP 193/87 H 08/23/21 07:19 Pulse Ox 98 08/23/21 07:19 Allergies Allergy/AdvReac Type Severity Reaction Status Date / Time Antihistamines - Alkylamine Allergy Unknown Unknown Verified 08/23/21 07:16 Sulfa (Sulfonamide Allergy Unknown Unknown Verified 08/23/21 07:16 Antibiotics) ANTIHISTAMINE AdvReac Mild NERVOUSNESS, Uncoded 08/23/21 07:16 AGITATION Home Medications Medication Instructions Recorded Confirmed Type potassium chloride 20 meq PO DAILY 05/03/21 08/17/21 History acetaminophen [Mapap 650 mg PO Q6H PRN #0 tablet 05/05/21 08/17/21 Rx (acetaminophen)] esomeprazole magnesium 20 mg 40 mg PO DAILY cap 05/14/21 08/17/21 History capsule,delayed release metoprolol tartrate 50 mg tablet 50 mg PO BID #180 tablet 06/20/21 08/17/21 Rx cholestyramine (with sugar) 4 gram 4 g PO DAILY #378 g 07/13/21 08/17/21 Rx oral powder multivitamin [One A Day Vitamin] 1 tablet PO DAILY 08/07/21 08/17/21 History Patient hx anesthesia problems: none Family hx anesthesia problems: none Results Review: All pre-operative results and documents have been reviewed as part of the pre-operative evaluation. [facility] Past Medical History Medical History Adenomatous colon polyp Esophagitis Essential hypertension Gastroesophageal reflux disease Hiatal hernia History of esophageal stricture History of kidney stones Hypertriglyceridemia Intermittent low back pain Osteopenia Sciatica Surgical History Surgical History History of cholecystectomy (~1989) History of colonoscopy with polypectomy History of esophageal dilatation (~1990) History of hysterectomy (~1989) History of partial thyroidectomy (Unknown) Left. Family History Family History Father Family history of cardiovascular disease Mother Carcinoma of colon Sibling Heart attack Social History Social History Social History: Surrogate decision maker: Morris Min, spouse. Code status: Full code. Second hand tobacco smoke exposure: No Alcohol intake: never Substance use: never Substance use type: does not use Living arrangements: with family Additional living arrangements comments: The patient lives in [place] with her . Additional occupation/education comments: Retired. Sexual Orientation (if Verbalized by the Patient): . Anes - Eval Final PreProcedure Day of Procedure 08/23/21 08:04 Patient weight: normal Heart: regular rate and rhythm Lungs: clear to auscultation Airway: Mallampati scale class III Neurological: alert and oriented Last oral intake: >/= 8 hours ASA classification: III Emergent: no Anesthetic plan: proceed Anesthesia type and monitoring: general GIVS and standard monitoring Results Review: All pre-operative results and documents have been reviewed as part of the pre-operative evaluation. Informed Consent: The patient's anesthetic plan and its attendant risks and benefits were discussed with the patient/family/POA. Questions were solicited and answers provided to the satisfaction of the patient/family/POA.
--- NOTE | 2021-08-23 08:15 | WPDGICN ---
Assessment and Plan Assessment and plan (1) History of colon polyps: Code(s): Z86.010 - Personal history of colonic polyps Status: Acute Assessment and Plan: Patient has a history of adenomatous colon polyps. Most recently 2015. Plan is for surveillance colonoscopy today. Further recommendations will be given after endoscopy. (2) IBS (irritable bowel syndrome): Code(s): K58.9 - Irritable bowel syndrome without diarrhea Status: Acute Assessment and Plan: Patient has known history of irritable bowel syndrome. She has alternating diarrhea constipation. Fiber supplements are encouraged. Currently on a trial of Questran daily. (3) Gastroesophageal reflux disease: Code(s): K21.9 - Gastro-esophageal reflux disease without esophagitis Status: Acute Assessment and Plan: Patient has a history of esophagitis in the past. History of esophageal stricture. Currently maintained on Nexium 40mg p.o. daily with good stable results at present. Anti-reflux measures should continue. GI Consult Note Consult date/time: 08/23/21 08:15 HPI: Shonda Min is a 81 year old female Presents for screening colonoscopy. Patient has a prior history of colon polyps. Family history is significant both mother and brother have had colon cancer. Patient has had irregular bowel movements suspicious for irritable bowel syndrome. Fiber supplements and Questran have been suggested. Patient continues to have fluctuations in the consistency of her bowel movements. Patient denies any bleeding. Her weight has remained stable. today she presents for screening colonoscopy. Review of Systems Review of Systems: All systems reviewed & are unremarkable except as noted in HPI and below PMFSH Past Medical History Medical History Adenomatous colon polyp Esophagitis Essential hypertension Gastroesophageal reflux disease Hiatal hernia History of esophageal stricture History of kidney stones Hypertriglyceridemia Intermittent low back pain Osteopenia Sciatica Surgical History Surgical History History of cholecystectomy (~1989) History of colonoscopy with polypectomy History of esophageal dilatation (~1990) History of hysterectomy (~1989) History of partial thyroidectomy (Unknown) Left. Family History Family History Father Family history of cardiovascular disease Mother Carcinoma of colon Sibling Heart attack Social History Social History Social History: Surrogate decision maker: Morris Min, spouse. Code status: Full code. Second hand tobacco smoke exposure: No Alcohol intake: never Substance use: never Substance use type: does not use Living arrangements: with family Additional living arrangements comments: The patient lives in [place] with her . Additional occupation/education comments: Retired. Sexual Orientation (if Verbalized by the Patient): . Meds Home Medications and Allergies Home Medications Medication Instructions Recorded Confirmed Type potassium chloride 20 meq PO DAILY 05/03/21 08/17/21 History acetaminophen [Mapap 650 mg PO Q6H PRN #0 tablet 05/05/21 08/17/21 Rx (acetaminophen)] esomeprazole magnesium 20 mg 40 mg PO DAILY cap 05/14/21 08/17/21 History capsule,delayed release metoprolol tartrate 50 mg tablet 50 mg PO BID #180 tablet 06/20/21 08/17/21 Rx cholestyramine (with sugar) 4 gram 4 g PO DAILY #378 g 07/13/21 08/17/21 Rx oral powder multivitamin [One A Day Vitamin] 1 tablet PO DAILY 08/07/21 08/17/21 History Allergies Allergy/AdvReac Type Severity Reaction Status Date / Time Antihistamines - Alkylamine Allergy Unknown Unknown Verified 08/23/21 07:16 Sulfa (Sulfonamide Al
[2021-08-23 08:33] VITALS: BP 135/69; PULSE 86; RESP 20; O2SAT 98
[2021-08-23 08:43] VITALS: BP 137/72; PULSE 73; RESP 25; O2SAT 98
[2021-08-23 08:53] VITALS: BP 160/94; PULSE 70; RESP 20; O2SAT 99
== END 2021-08-23 09:11 | disposition home or self-care (01) ==
PROVIDERS: PCP Family Medicine; Visit Provider Internal Medicine Gastroenterology
PROC: 0DJD8ZZ Inspection of Lower Intestinal Tract, Via Natural or Artificial Opening Endoscopic (ICD-10-PCS; CPT 45378; principal; 2021-08-23 08:30)
DX: Z12.11 Encounter for screening for malignant neoplasm of colon (principal); Z80.0 Family history of malignant neoplasm of digestive organs; Z86.010 Personal history of colon polyps; K58.9 Irritable bowel syndrome, unspecified; K21.9 Gastro-esophageal reflux disease without esophagitis; I10 Essential (primary) hypertension; K21.00 Gastro-esophageal reflux disease with esophagitis, without bleeding; K44.9 Diaphragmatic hernia without obstruction or gangrene; E78.1 Pure hyperglyceridemia; M19.90 Unspecified osteoarthritis, unspecified site; M54.30 Sciatica, unspecified side; R19.7 Diarrhea, unspecified
CPT/HCPCS: G0105; J2704; J7120

== ENCOUNTER 2021-09-27 00:44 | Day surgery (SDC) | payer MEDICARE, SELFPAY ==
[2021-09-11 10:40] VITALS: BMI 24.2
[2021-09-27 09:10] VITALS: BP 188/78; PULSE 59; RESP 18; TEMP 36.2; O2SAT 99; BMI 23.8
[2021-09-27] MEDS: LACTATED RINGERS 1,000 ML 150 ML IV CONT (09:20)
--- NOTE | 2021-09-27 09:42 | WPDANESEPPF ---
Anes - Initial Pre Proc Eval Procedure: Operation Date: 09/27/21 10:15 Proposed Procedures p Colonoscopy - Raymundo Ruiz MD Date/Time: 09/27/21 09:42 Surgeon: Raymundo Ruiz MD Pre Op Diagnosis: diarrhea, hx colon polyps Patient Data Age: 81 Gender: F Height: 1.63 m Weight: 62.9 kg Last Vital Signs Temp 97.1 F L 09/27/21 09:10 Pulse 59 L 09/27/21 09:10 Resp 18 09/27/21 09:10 BP 188/78 H 09/27/21 09:10 Pulse Ox 99 09/27/21 09:10 Allergies Allergy/AdvReac Type Severity Reaction Status Date / Time Antihistamines - Alkylamine Allergy Unknown Unknown Verified 09/11/21 10:38 Sulfa (Sulfonamide Allergy Unknown Unknown Verified 09/11/21 10:38 Antibiotics) Home Medications Medication Instructions Recorded Confirmed Type potassium chloride 20 meq PO DAILY 05/03/21 09/11/21 History acetaminophen [Mapap 650 mg PO Q6H PRN #0 tablet 05/05/21 09/11/21 Rx (acetaminophen)] esomeprazole magnesium 20 mg 40 mg PO DAILY cap 05/14/21 09/11/21 History capsule,delayed release metoprolol tartrate 50 mg tablet 50 mg PO BID #180 tablet 06/20/21 09/11/21 Rx multivitamin [One A Day Vitamin] 1 tablet PO DAILY 08/07/21 09/11/21 History Patient hx anesthesia problems: none Family hx anesthesia problems: none Results Review: All pre-operative results and documents have been reviewed as part of the pre-operative evaluation. [facility] Past Medical History Medical History Adenomatous colon polyp Esophagitis Essential hypertension Gastroesophageal reflux disease Hiatal hernia History of esophageal stricture History of kidney stones Hypertriglyceridemia Intermittent low back pain Osteopenia Sciatica Surgical History Surgical History History of cholecystectomy (~1989) History of colonoscopy with polypectomy History of esophageal dilatation (~1990) History of hysterectomy (~1989) History of partial thyroidectomy (Unknown) Left. Family History Family History Father Family history of cardiovascular disease Mother Carcinoma of colon Sibling Heart attack Social History Social History Social History: Surrogate decision maker: Morris Min, spouse. Code status: Full code. Smoking status: Never smoker Second hand tobacco smoke exposure: No Alcohol intake: never Substance use: never Substance use type: does not use Living arrangements: with family Additional living arrangements comments: The patient lives in [place] with her . Additional occupation/education comments: Retired. Sexual Orientation (if Verbalized by the Patient): . Spiritual care concerns: No Anes - Eval Final PreProcedure Day of Procedure 09/27/21 09:42 Patient weight: normal Heart: regular rate and rhythm Lungs: clear to auscultation Airway: Mallampati scale class III Neurological: alert and oriented Last oral intake: >/= 8 hours ASA classification: II Emergent: no Anesthetic plan: proceed Anesthesia type and monitoring: general GIVS and standard monitoring Results Review: All pre-operative results and documents have been reviewed as part of the pre-operative evaluation. Informed Consent: The patient's anesthetic plan and its attendant risks and benefits were discussed with the patient/family/POA. Questions were solicited and answers provided to the satisfaction of the patient/family/POA.
--- NOTE | 2021-09-27 10:02 | WPDGICN ---
Assessment and Plan Assessment and plan (1) History of colon polyps: Code(s): Z86.010 - Personal history of colonic polyps Status: Acute Assessment and Plan: Patient has a personal history of colon polyps as well as a family history of colon cancer. For this reason screening colonoscopy advised at this time and may be considered in the future depending on her overall health. (2) IBS (irritable bowel syndrome): Code(s): K58.9 - Irritable bowel syndrome without diarrhea Status: Acute Assessment and Plan: Patient with irregular bowel habits suspicious for irritable bowel syndrome fiber supplements are encouraged. (3) Diarrhea: Qualifiers: Diarrhea type: unspecified type Qualified Code(s): R19.7 - Diarrhea, unspecified Code(s): R19.7 - Diarrhea, unspecified Status: Acute Assessment and Plan: Patient complains of ongoing diarrhea loose stools. Fiber supplements are encouraged this will be evaluated at time of colonoscopy. GI Consult Note Consult date/time: 09/27/21 10:02 HPI: Shonda Min is a 81 year old female Presents for colonoscopy. Patient has a prior history of colon polyps. Family history is significant mother and brother have had colon cancer. Patient presented for colonoscopy 1 month ago but was limited by poor preparation. She returns today for screening colonoscopy. She does report irregular bowel habits attributed to irritable bowel syndrome. Fiber supplements have been encouraged. Review of Systems Review of Systems: All systems reviewed & are unremarkable except as noted in HPI and below PMFSH Past Medical History Medical History Adenomatous colon polyp Esophagitis Essential hypertension Gastroesophageal reflux disease Hiatal hernia History of esophageal stricture History of kidney stones Hypertriglyceridemia Intermittent low back pain Osteopenia Sciatica Surgical History Surgical History History of cholecystectomy (~1989) History of colonoscopy with polypectomy History of esophageal dilatation (~1990) History of hysterectomy (~1989) History of partial thyroidectomy (Unknown) Left. Family History Family History Father Family history of cardiovascular disease Mother Carcinoma of colon Sibling Heart attack Social History Social History Social History: Surrogate decision maker: Morris Zoeller, spouse. Code status: Full code. Smoking status: Never smoker Second hand tobacco smoke exposure: No Alcohol intake: never Substance use: never Substance use type: does not use Living arrangements: with family Additional living arrangements comments: The patient lives in [place] with her . Additional occupation/education comments: Retired. Sexual Orientation (if Verbalized by the Patient): . Spiritual care concerns: No Meds Home Medications and Allergies Home Medications Medication Instructions Recorded Confirmed Type potassium chloride 20 meq PO DAILY 05/03/21 09/11/21 History acetaminophen [Mapap 650 mg PO Q6H PRN #0 tablet 05/05/21 09/11/21 Rx (acetaminophen)] esomeprazole magnesium 20 mg 40 mg PO DAILY cap 05/14/21 09/11/21 History capsule,delayed release metoprolol tartrate 50 mg tablet 50 mg PO BID #180 tablet 06/20/21 09/11/21 Rx multivitamin [One A Day Vitamin] 1 tablet PO DAILY 08/07/21 09/11/21 History Allergies Allergy/AdvReac Type Severity Reaction Status Date / Time Antihistamines - Alkylamine Allergy Unknown Unknown Verified 09/11/21 10:38 Sulfa (Sulfonamide Allergy Unknown Unknown Verified 09/11/21 10:38 Antibiotics) Vital Signs Vital Signs - 24 hr 09/27/21 09:10 Temperature 97.1 F L Pulse Rate 59 L Resp
[2021-09-27 10:39] VITALS: BP 134/104; PULSE 77; RESP 38; O2SAT 96
[2021-09-27 10:49] VITALS: BP 144/79; PULSE 69; RESP 18; O2SAT 96
[2021-09-27 10:59] VITALS: BP 154/84; PULSE 64; RESP 23; O2SAT 97
== END 2021-09-27 11:17 | disposition home or self-care (01) ==
PROVIDERS: PCP Family Medicine; Visit Provider Internal Medicine Gastroenterology
PROC: 0DJD8ZZ Inspection of Lower Intestinal Tract, Via Natural or Artificial Opening Endoscopic (ICD-10-PCS; CPT 45378; principal; 2021-09-27 10:15)
DX: K58.0 Irritable bowel syndrome with diarrhea (principal); K64.8 Other hemorrhoids; K57.30 Diverticulosis of large intestine without perforation or abscess without bleeding; Z86.010 Personal history of colon polyps; I10 Essential (primary) hypertension; K21.9 Gastro-esophageal reflux disease without esophagitis; E78.1 Pure hyperglyceridemia; M85.80 Other specified disorders of bone density and structure, unspecified site
CPT/HCPCS: 45378; J2704; J7120

== ENCOUNTER 2021-10-08 22:55 | Emergency (ER) | payer MEDICARE, SELFPAY ==
[2021-10-08 23:01] VITALS: BP 140/85; PULSE 98; RESP 16; TEMP 36.3; O2SAT 98
[2021-10-09 01:31] VITALS: BP 132/66; PULSE 74; RESP 16; O2SAT 98
[2021-10-09] MEDS: SODIUM CHLORIDE 0.9% IV 1,000 ML 999 ML IV CONT (02:02)
[2021-10-09 02:54] LABS: Basophils Percent Auto 0.2 % (0.2-1.2); Eosinophils Percent Auto 0.1 % (0-4.4); Hematocrit 38.8 % (37.0-47.0); Hemoglobin 13.1 g/dL (12.0-15.0); Immature Granulocyte Absolute 0.08 K/mm3 (0.00-0.031); Immature Granulocyte Percent A 0.5 % (0-0.5); Lymphocytes Percent Auto 4.2 % (18.3-44.2); Mean Corpuscular HGB Conc 33.8 g/dl (32-36); Mean Corpuscular Hemoglobin 32.2 pg (26-34); Mean Corpuscular Volume 95.3 fl (80-100); Mean Platelet Volume 9.1 fl (7.4-10.4); Monocytes Absolute Auto 0.4 K/mm3 (0.1-0.6); Monocytes Percent Auto 2.6 % (2.6-8.5); Neutrophils Absolute Auto 15.5 K/mm3 (1.3-6.7); Neutrophils Percent Auto 92.4 % (45.5-73.1); Platelet Count Result 225 k/mm3 (150-375); Red Blood Count 4.07 M/mm3 (4.2-5.4); Red Cell Distribution Width 13.1 % (11.5-14.5); White Blood Count 16.8 K/mm3 (4.5-10.0)
--- NOTE | 2021-10-09 02:59 | ED.NAVMDI ---
HPI - Nausea/Vomiting/Diarrhea General Chief complaint: Nausea/Vomiting/Diarrhea Stated complaint: nausea/vomitting Time Seen by Provider: 10/09/21 01:51 Source: patient History of Present Illness HPI Narrative: Patient presents with nausea vomiting and diarrhea. Reports her symptoms started today and have been getting worse.. She was cold and clammy when she was vomiting and had a hard time keeping anything down. She was concerned so she called EMS to bring her in for evaluation. She reports she got Zofran in route by EMS and is feeling much improved. She denies any abdominal pain or urinary symptoms. She denies any blood or bile or melena. She is unsure if she has a stomach bug or food poisoning but she rather be safe than sorry so she and the ER for evaluation. She does not note any sick contacts denies any recent antibiotics Related Data Home Medications Medication Instructions Recorded Confirmed potassium chloride 20 meq PO DAILY 05/03/21 09/11/21 esomeprazole magnesium 20 mg 40 mg PO DAILY cap 05/14/21 09/11/21 capsule,delayed release multivitamin [One A Day Vitamin] 1 tablet PO DAILY 08/07/21 09/11/21 Allergies Allergy/AdvReac Type Severity Reaction Status Date / Time Antihistamines - Alkylamine Allergy Unknown Unknown Verified 10/08/21 23:04 Sulfa (Sulfonamide Allergy Unknown Unknown Verified 10/08/21 23:04 Antibiotics) Review of Systems Review of Systems: CONSTITUTIONAL: Denies fever, chills, or sweats. EYES: Denies visual changes, redness, or discharge. ENT: Denies rhinorrhea, congestion, sore throat, or otalgia. CARDIOVASCULAR: Denies chest pain, palpitations, or edema. RESPIRATORY: Denies cough or dyspnea. GASTROINTESTINAL: Reports nausea vomiting and diarrhea GENITOURINARY: Denies dysuria or hematuria. SKIN: Denies rash or itching. MUSCULOSKELETAL: Denies back pain, joint pain, or myalgia. NEUROLOGIC: Denies headache, numbness, dizziness, or weakness. PSYCHIATRIC: Denies anxiety or depression. All systems reviewed & are unremarkable except as noted in HPI and below PMFSH Past Medical History Medical History Adenomatous colon polyp Esophagitis Essential hypertension Gastroesophageal reflux disease Hiatal hernia History of esophageal stricture History of kidney stones Hypertriglyceridemia Intermittent low back pain Osteopenia Sciatica Surgical History Surgical History History of cholecystectomy (~1989) History of colonoscopy with polypectomy History of esophageal dilatation (~1990) History of hysterectomy (~1989) History of partial thyroidectomy (Unknown) Left. Family History Family History Father Family history of cardiovascular disease Mother Carcinoma of colon Sibling Heart attack Social History Social History Social History: Surrogate decision maker: Morris Min, spouse. Code status: Full code. Smoking status: Never smoker Second hand tobacco smoke exposure: No Alcohol intake: never Substance use: never Substance use type: does not use Additional living arrangements comments: The patient lives in [place] with her . Additional occupation/education comments: Retired. Sexual Orientation (if Verbalized by the Patient): . Spiritual care concerns: No Exam Narrative: GENERAL: Well-appearing, well-nourished, and in no acute distress. HEAD: Normocephalic, atraumatic. EYES: PERRLA and EOMI. ENT: Nares clear, no rhinorrhea or epistaxis. Mucous membranes moist. NECK: Supple. No masses. No JVD ABDOMEN: Soft, nontender, nondistended, normal active bowel sounds. EXTREMITIES: Normal range of motion. No edema. SKIN: Warm, dry, no rash. NEURO: No focal deficits. Alert and oriented x3. PSYCH: Normal mood and affect. Course
[2021-10-09 03:09] LABS: Alanine Aminotransferase 11 U/L (4-35); Albumin Level 3.8 g/dL (3.5-5.1); Alkaline Phosphatase 67 U/L (38-126); Anion Gap 8 mmol/L (8-16); Aspartate Amino Transferase 17 U/L (14-36); Bilirubin,Total 0.5 mg/dL (0.2-1.3); Blood Urea Nitrogen 15 mg/dL (7-17); Calcium 9.5 mg/dL (8.4-10.2); Carbon Dioxide 23 mmol/L (22-30); Chloride 103 mmol/L (98-107); Estimated CRCL calculation 43 ml/min; Estimated Glomerular Filt Rate > 60; Glucose 114 mg/dL (65-110); Lipase 55 U/L (23-300); Potassium 4.6 mmol/L (3.4-5.0); Sodium 134 mmol/L (137-145)
[2021-10-09 03:22] VITALS: BP 138/68; PULSE 83; RESP 18; O2SAT 99
[2021-10-09 03:27] LABS: Add Urine Microscopic? YES; Appearance Urine Clear (Clear); Bacteria Urine Trace /hpf; Bilirubin Urine Negative (Negative); Blood Urine Negative (Negative); Color Urine Yellow (Yellow); Glucose Urine UA Negative (Negative); Ketones Urine Negative (Negative); Leukocyte Esterase Ur 1+ LEU/UL (Negative); Mucus Urine Rare /lpf; Nitrate Urine Negative (Negative); Protein Urine Negative (Negative); RBC Urine 0-2 /hpf (0-2); Specific Grav Ur 1.017 (1.001-1.035); Squamous Epithelial Cell Urine Rare /hpf (Few); Urobilinogen Urine Negative mg/dL (<2.0)
[2021-10-09 03:55] VITALS: BP 138/68; PULSE 81; RESP 16; O2SAT 97
== END 2021-10-09 03:48 | disposition home or self-care (01) ==
PROVIDERS: Emergency Provider Emergency Medicine; PCP Family Medicine
DX: R11.2 Nausea with vomiting, unspecified (principal); R19.7 Diarrhea, unspecified; D72.829 Elevated white blood cell count, unspecified; I10 Essential (primary) hypertension; K21.00 Gastro-esophageal reflux disease with esophagitis, without bleeding; Z87.442 Personal history of urinary calculi; M85.80 Other specified disorders of bone density and structure, unspecified site; Z86.010 Personal history of colon polyps; E89.0 Postprocedural hypothyroidism
CPT/HCPCS: 36415; 80053; 81001; 83690; 85025; 96360; 99283; J7030

== ENCOUNTER → 2021-12-27 09:55 | Outpatient (CLI) | payer MEDICARE, SELFPAY ==
--- NOTE | ~2021-12-27 | XR_ITS ---
XR sacroiliac joints min 3V 12/27/2021 11:49 Indication: Sacroiliitis Procedure: 3 view sacroiliac joints Comparison: No prior studies for comparison. Findings: There is mild symmetric degenerative changes of the sacroiliac joints. No erosive changes a re lytic defects. No evidence for ankylosis. Impression: 1: Mild symmetric degenerative change of the sacroiliac joints. Reviewed, dictated and finalized at location A. PORTAL CONSULTANT Impression: 1: Mild symmetric degenerative change of the sacroiliac joints.
== END ==
PROVIDERS: PCP Family Medicine; Visit Provider Family Medicine
DX: M46.1 Sacroiliitis, not elsewhere classified (principal)
CPT/HCPCS: 72202

== ENCOUNTER 2022-01-03 13:36 | Outpatient (CLI) | payer MEDICARE, SELFPAY ==
--- NOTE | ~2022-01-03 | MM_ITS ---
EXAMINATION: MM diagnostic joseph BI w rk HISTORY: Follow-up calcifications TECHNIQUE: Additional 3-D tomosynthesis images of the breasts were performed and synthetic 2-D images were generated. CAD analysis was submitted and interpreted. COMPARISON: Comparison to multiple prior studies sequentially, with oldest reviewed study dated 04/2016. BREAST PARENCHYMAL COMPOSITION: There are scattered areas of fibroglandular density. FINDINGS: There are no suspicious masses, calcifications or architectural distortion in either breast to suggest malignancy. Stable punctate right breast calcifications. IMPRESSION: 1. No evidence for malignancy in either breast. 2. Routine yearly screening mammogram and regular clinical breast examination are recommended. BI-RADS Category 2: Benign finding(s). Reviewed, dictated and finalized at location A. MIZATION MANAGER IMPRESSION: 1. No evidence for malignancy in either breast. 2. Routine yearly screening mammogram and regular clinical breast examination a re recommended. BI-RADS Category 2: Benign finding(s).
== END 2022-01-03 13:37 | disposition home or self-care (01) ==
LOC: ANHIMG 13:37
PROVIDERS: PCP Family Medicine; Visit Provider Family Medicine
DX: R92.8 Other abnormal and inconclusive findings on diagnostic imaging of breast (principal)
CPT/HCPCS: 77062; 77066; G0279

== ENCOUNTER 2022-05-29 11:55 | Outpatient (CLI) | payer MEDICARE, SELFPAY ==
[2022-05-29 20:48] LABS: Alanine Aminotransferase 9 U/L (6-35); Albumin Level 4.3 g/dL (3.5-5.1); Alkaline Phosphatase 76 U/L (38-126); Anion Gap 11 mmol/L (8-16); Aspartate Amino Transferase 25 U/L (14-36); Bilirubin,Total 0.7 mg/dL (0.2-1.3); Blood Urea Nitrogen 10 mg/dL (7-17); Calcium 10.2 mg/dL (8.4-10.2); Carbon Dioxide 26 mmol/L (22-30); Chloride 87 mmol/L (98-107); Estimated Glomerular Filt Rate > 60; Glucose 99 mg/dL (65-110); Potassium 3.5 mmol/L (3.4-5.0); Sodium 124 mmol/L (137-145)
[2022-05-29 21:02] LABS: Hematocrit 39.1 % (37.0-47.0); Hemoglobin 13.5 g/dL (12.0-15.0); Mean Corpuscular HGB Conc 34.5 g/dl (32-36); Mean Corpuscular Volume 92.7 fl (80-100); Mean Platelet Volume 10.2 fl (7.4-10.4); Platelet Count Result 302 k/mm3 (150-375); Red Blood Count 4.22 M/mm3 (4.2-5.4); Red Cell Distribution Width 12.3 % (11.5-14.5)
== END 2022-05-29 11:56 | disposition home or self-care (01) ==
LOC: ANHGOSHLAB 11:57
PROVIDERS: PCP Family Medicine; Visit Provider Physician Assistant
DX: R59.1 Generalized enlarged lymph nodes (principal); Z13.1 Encounter for screening for diabetes mellitus
CPT/HCPCS: 36415; 80053; 85027; 86664

== ENCOUNTER 2022-05-30 10:11 | Emergency (ER) | payer MEDICARE, SELFPAY ==
--- NOTE | ~2022-05-30 | XR_ITS ---
XR chest 2V 05/30/2022 12:03 Indication: Low sodium levels. Dyspnea. Procedure: PA and lateral views of the chest Comparison: 10/17/2013 Findings: Heart size normal. No focal air space disease, pulmonary edema, pleural effusion or suspect ed pneumothorax. Large hiatal hernia. No acute osseous abnormality. Impression: 1: No acute cardiopulmonary disease. 2: Large hiatal hernia. Reviewed, dictated and finalized at location A. Impression: 1: No acute cardiopulmonary disease. 2: Large hiatal hernia.
[2022-05-30 10:23] VITALS: BP 154/76; PULSE 60; RESP 18; TEMP 36.4; O2SAT 99
[2022-05-30 10:28] LABS: Basophils Percent Auto 0.3 % (0.2-1.2); Eosinophils Percent Auto 0.4 % (0-4.4); Hematocrit 40.2 % (37.0-47.0); Immature Granulocyte Absolute 0.04 K/mm3 (0.00-0.031); Immature Granulocyte Percent A 0.4 % (0-0.5); Lymphocytes Absolute Auto 2.77 K/mm3 (0.9-3.2); Lymphocytes Percent Auto 28.6 % (18.3-44.2); Mean Corpuscular HGB Conc 34.8 g/dl (32-36); Mean Corpuscular Hemoglobin 32.1 pg (26-34); Mean Corpuscular Volume 92.2 fl (80-100); Monocytes Absolute Auto 0.6 K/mm3 (0.1-0.6); Monocytes Percent Auto 6.1 % (2.6-8.5); Neutrophils Absolute Auto 6.2 K/mm3 (1.3-6.7); Neutrophils Percent Auto 64.2 % (45.5-73.1); Platelet Count Result 291 k/mm3 (150-375); Red Blood Count 4.36 M/mm3 (4.2-5.4); Red Cell Distribution Width 12.3 % (11.5-14.5); White Blood Count 9.7 K/mm3 (4.5-10.0)
[2022-05-30 10:37] LABS: Alanine Aminotransferase 10 U/L (6-35); Albumin Level 4.5 g/dL (3.5-5.1); Alkaline Phosphatase 79 U/L (38-126); Anion Gap 9 mmol/L (8-16); Aspartate Amino Transferase 22 U/L (14-36); Bilirubin,Total 0.5 mg/dL (0.2-1.3); Blood Urea Nitrogen 8 mg/dL (7-17); Carbon Dioxide 29 mmol/L (22-30); Chloride 93 mmol/L (98-107); Estimated CRCL calculation 43 ml/min; Estimated Glomerular Filt Rate > 60; Glucose 117 mg/dL (65-110); Potassium 3.7 mmol/L (3.4-5.0); Sodium 131 mmol/L (137-145)
--- NOTE | 2022-05-30 11:33 | ECG_ITS ---
Measurements Intervals Falls Rate: 55 P: 39 MT: 242 QRS: -15 QRSD: 101 T: 3 QT: 441 QTc: 424 Interpretive Statements SINUS BRADYCARDIA WITH FIRST DEGREE AV BLOCK LEFT VENTRICULAR HYPERTROPHY AND ST-T CHANGE ABNORMAL ECG COMPARED TO ECG 05/03/2021 13:31:59 HEART RATE HAS DECREASED Electronically Signed On 05-30-2022 15:32:51 CDT by Melhcor Berry M.D.
--- NOTE | 2022-05-30 11:57 | PC.NURSE ---
Patient transported off unit to Radiology.
[2022-05-30 12:06] LABS: Lipase 111 U/L (23-300)
--- NOTE | 2022-05-30 12:18 | ED.GENADULT ---
HPI - General Adult General Chief complaint: Recheck/Abnormal Lab/Rx Stated complaint: abnormal labs-low sodium Time Seen by Provider: 05/30/22 11:17 Source: RN notes reviewed History of Present Illness HPI narrative: Patient presents emergency department from home for hyponatremia. The patient states she was seen by her PCP yesterday. She been having some weakness and nausea and lab work of been drawn at that time she was called today to come to the emergency department because her sodium was low. States she is feeling mildly better today she states that she has had some generalized weakness and she has had some mild nausea but denies any fevers or chills she denies any chest pain or shortness of breath states that she has had some intermittent pain in her epigastric region but denies any acute pain she denies any vomiting or diarrhea or any other symptoms Related Data Home Medications Medication Instructions Recorded Confirmed esomeprazole magnesium 20 mg 40 mg PO DAILY 05/14/21 05/29/22 capsule,delayed release (Nexium 24HR) multivitamin 1 tablet PO DAILY 08/07/21 05/29/22 Allergies Allergy/AdvReac Type Severity Reaction Status Date / Time Antihistamines - Alkylamine Allergy Unknown Unknown Verified 05/30/22 10:27 Sulfa (Sulfonamide Allergy Unknown Unknown Verified 05/30/22 10:27 Antibiotics) Review of Systems Review of Systems: Gen.: Denies fevers or chills ENT: Denies congestion Respiratory: Denies shortness of breath or cough CV: Denies chest pain or palpitations GI: Denies abdominal pain emesis or diarrhea. Reports nausea denies burning, urgency, frequency or hematuria Musculoskeletal: Denies back pain or muscle pain Neuro: D reports weakness Skin: Denies rash Except as documented, all other systems reviewed and negative [facility] Past Medical History Medical History Adenomatous colon polyp Esophagitis Essential hypertension Gastroesophageal reflux disease Hiatal hernia History of esophageal stricture History of kidney stones Hypertriglyceridemia Intermittent low back pain Osteopenia Sciatica Vitamin D deficiency Surgical History Surgical History History of cholecystectomy (~1989) History of colonoscopy with polypectomy History of esophageal dilatation (~1990) History of hysterectomy (~1989) History of partial thyroidectomy (Unknown) Left. Family History Family History Father Family history of cardiovascular disease Mother Carcinoma of colon Sibling Heart attack Social History Social History Social History: Surrogate decision maker: Morris Min, spouse. Code status: Full code. Smoking status: Never smoker Second hand tobacco smoke exposure: No Alcohol intake: never Substance use: never Substance use type: does not use Additional living arrangements comments: The patient lives in [place] with her . Additional occupation/education comments: Retired. Sexual Orientation (if Verbalized by the Patient): . Spiritual care concerns: No Exam Narrative: APPEARANCE: No acute distress, nontoxic, resting in bed EYES: EOMI HEENT: Normocephalic, atraumatic, OMM RESPIRATORY: No respiratory distress Clear to auscultation bilaterally with no rhonchi wheezing or rales. CARDIOVASCULAR: Regular rate and rhythm without murmurs rubs or gallops. ABDOMINAL: Soft, nontender, nondistended, no rebound or guarding MUSCULOSKELETAl: Moves all extremities. No clubbing, cyanosis or edema. NEURO: Awake and alert. Following commands, speech normal, no focal deficits SKIN:: Warm, dry. No rashes lesions or abrasions PSYCHIATRIC: Normal affect/mood, Course Course Emergency Course: Reviewed patient's old records patient had a sodium of 124 yesterd
[2022-05-30 12:19] LABS: Troponin I < 0.012 ng/mL (0.000-0.034)
[2022-05-30 13:06] LABS: SARS-CoV-2 RNA PCR Negative
[2022-05-30 13:14] LABS: Add Urine Microscopic? YES; Appearance Urine Clear (Clear); Bilirubin Urine Negative (Negative); Blood Urine Negative (Negative); Color Urine Yellow (Yellow); Glucose Urine UA Negative (Negative); Ketones Urine Negative (Negative); Leukocyte Esterase Ur Trace LEU/UL (Negative); Nitrate Urine Negative (Negative); Protein Urine Negative (Negative); Specific Grav Ur 1.015 (1.001-1.035); Urobilinogen Urine 0.2 mg/dL (<2.0)
[2022-05-30 13:23] LABS: Bacteria Urine Trace /hpf; Mucus Urine Rare /lpf; RBC Urine 0-2 /hpf (0-2); Squamous Epithelial Cell Urine Rare /hpf (Few); WBC Urine 0-3 /hpf
[2022-05-30] MEDS: SODIUM CHLORIDE 0.9% IV 1,000 ML 999 ML IV CONT (14:55)
[2022-05-30 16:11] VITALS: BP 141/55; PULSE 54; RESP 14; O2SAT 98
== END 2022-05-30 16:14 | disposition home or self-care (01) ==
PROVIDERS: Emergency Provider Emergency Medicine; PCP Family Medicine
DX: R53.1 Weakness (principal); E87.1 Hypo-osmolality and hyponatremia; Z20.822 Contact with and (suspected) exposure to COVID-19; R00.1 Bradycardia, unspecified; I10 Essential (primary) hypertension; K21.9 Gastro-esophageal reflux disease without esophagitis; Z87.442 Personal history of urinary calculi
CPT/HCPCS: 36415; 71046; 80053; 81001; 83690; 84484; 85025; 93005; 96361; 96374; 99284; C9803; J0131; J7030; U0003; U0005

== ENCOUNTER → 2022-06-13 14:07 | Outpatient (CLI) | payer MEDICARE, SELFPAY ==
--- NOTE | ~2022-06-13 | US_ITS ---
US soft tissue head and neck 06/13/2022 14:30 Indication: Palpable area in the right neck Procedure: Generalized lymphadenopathy. Comparison: No prior studies for comparison. Findings: Normal heterogeneous echotexture is present in the neck in the area of palpable concern. No discrete solid or cystic masses are identified. Impression: 1: Normal soft tissue ultrasound of the right neck. No discrete mass. Reviewed, dictated and finalized at location B. Impression: 1: Normal soft tissue ultrasound of the right neck. No discrete mass.
== END ==
PROVIDERS: PCP Family Medicine; Visit Provider Physician Assistant
DX: R59.1 Generalized enlarged lymph nodes (principal)
CPT/HCPCS: 76536

== ENCOUNTER 2022-06-24 09:02 | Outpatient (CLI) | payer MEDICARE, SELFPAY ==
[2022-06-24 18:25] LABS: Basophils Percent Auto 0.5 % (0.2-1.2); Eosinophils Absolute Auto 0.1 K/mm3 (0-0.3); Eosinophils Percent Auto 1.1 % (0-4.4); Hematocrit 41.5 % (37.0-47.0); Hemoglobin 13.8 g/dL (12.0-15.0); Immature Granulocyte Absolute 0.01 K/mm3 (0.00-0.031); Immature Granulocyte Percent A 0.1 % (0-0.5); Lymphocytes Absolute Auto 2.62 K/mm3 (0.9-3.2); Lymphocytes Percent Auto 32.1 % (18.3-44.2); Mean Corpuscular HGB Conc 33.3 g/dl (32-36); Mean Corpuscular Hemoglobin 32.1 pg (26-34); Mean Corpuscular Volume 96.5 fl (80-100); Mean Platelet Volume 10.3 fl (7.4-10.4); Monocytes Absolute Auto 0.4 K/mm3 (0.1-0.6); Monocytes Percent Auto 5.4 % (2.6-8.5); Neutrophils Percent Auto 60.8 % (45.5-73.1); Platelet Count Result 296 k/mm3 (150-375); Red Cell Distribution Width 12.4 % (11.5-14.5); White Blood Count 8.2 K/mm3 (4.5-10.0)
[2022-06-24 19:05] LABS: Alanine Aminotransferase 7 U/L (6-35); Albumin Level 4.2 g/dL (3.5-5.1); Alkaline Phosphatase 75 U/L (38-126); Anion Gap 11 mmol/L (8-16); Aspartate Amino Transferase 30 U/L (14-36); Bilirubin,Total 0.7 mg/dL (0.2-1.3); Blood Urea Nitrogen 9 mg/dL (7-17); Calcium 10.4 mg/dL (8.4-10.2); Carbon Dioxide 28 mmol/L (22-30); Chloride 98 mmol/L (98-107); Cholesterol 140 mg/dL (0-200); Estimated Glomerular Filt Rate > 60; Glucose 94 mg/dL (65-110); HDL Direct 46 mg/dL; Potassium 3.8 mmol/L (3.4-5.0); Sodium 137 mmol/L (137-145); Triglycerides 174 mg/dL (<150)
[2022-06-24 19:12] LABS: LDL Cholesterol Direct 47 mg/dL
[2022-06-24 19:52] LABS: Vitamin D 25 Hydroxy 35.1 ng/mL
== END 2022-06-24 09:03 | disposition home or self-care (01) ==
LOC: ANHGOSHLAB 09:05
PROVIDERS: PCP Family Medicine; Visit Provider Family Medicine
DX: E78.2 Mixed hyperlipidemia (principal); E11.9 Type 2 diabetes mellitus without complications; E55.9 Vitamin D deficiency, unspecified; D72.829 Elevated white blood cell count, unspecified
CPT/HCPCS: 36415; 80053; 80061; 82306; 85025

== ENCOUNTER 2022-09-16 09:44 | Outpatient (CLI) | payer MEDICARE, SELFPAY ==
[2022-09-16 15:31] LABS: Kit Draw Collected
== END 2022-09-16 09:45 | disposition home or self-care (01) ==
LOC: ANHGOSHLAB 09:48
PROVIDERS: PCP Family Medicine; Visit Provider Family Medicine
DX: R53.83 Other fatigue (principal); M79.605 Pain in left leg; E87.1 Hypo-osmolality and hyponatremia; E83.52 Hypercalcemia; I10 Essential (primary) hypertension; R20.2 Paresthesia of skin; Z53.8 Procedure and treatment not carried out for other reasons
CPT/HCPCS: 36415

== ENCOUNTER 2022-09-20 08:57 | Outpatient (CLI) | payer MEDICARE, SELFPAY ==
--- NOTE | ~2022-09-20 | XR_ITS ---
XR chest 2V 09/20/2022 09:19 Indication: Chronic cough Procedure: 2 view chest Comparison: 05/30/2022 Findings: Cardiomegaly. No focal air space disease, pulmonary edema, pleural effusion or suspected pn eumothorax. Large hiatal hernia. Impression: 1: No acute cardiopulmonary disease. 2: Large hiatal hernia. Reviewed, dictated and finalized at location A. ERCIAL COUNSEL Impression: 1: No acute cardiopulmonary disease. 2: Large hiatal hernia.
== END 2022-09-20 08:58 | disposition home or self-care (01) ==
PROVIDERS: PCP Family Medicine; Visit Provider Nurse Practitioner Family
DX: R10.10 Upper abdominal pain, unspecified (principal); R05.3 Chronic cough; K44.9 Diaphragmatic hernia without obstruction or gangrene
CPT/HCPCS: 71046

== ENCOUNTER 2022-10-01 08:37 | Outpatient (CLI) | payer MEDICARE, SELFPAY ==
--- NOTE | ~2022-10-01 | XR_ITS ---
EXAMINATION: UGI AIR CONTRAST W/ ESOPHAGRAM DATE: 01/08/08 09:43:00 INDICATION: Difficulty swallowing. Patient with nausea and weight loss. TECHNIQUE: Thick barium contrast with and without gas effervescent crystals were administered orally. Fluoroscopic images of the esophagus, stomach, and proximal duodenum were obtained in various proje ctions. The hypopharynx was also imaged. Thereafter, overhead images of the thoracic esophagus and ab domen were performed. 67 images. 1.2 minutes of fluoroscopy. FINDINGS: There is mild persistent narrowing of the distal esophagus with mucosal irregularity suggesting esoph agitis. There is a large hiatal hernia. There are cholecystectomy clips. The hypopharynx is normal. The gastric folds are normal. The proximal duodenum is also normal in appearance. IMPRESSION: 1. Large hiatal hernia with mild persistent narrowing of the distal esophagus with associated mucosa l irregularity, suspicious for stricture secondary to esophagitis. Reviewed, dictated and finalized at location A. ITURE FINISHER IMPRESSION: 1. Large hiatal hernia with mild persistent narrowing of the distal esophagus with associated mucosal irregularity, suspicious for stricture secondary to eso phagitis.
== END 2022-10-01 08:38 | disposition home or self-care (01) ==
PROVIDERS: PCP Family Medicine; Visit Provider Nurse Practitioner Family
DX: R05.3 Chronic cough (principal); R10.10 Upper abdominal pain, unspecified; K44.9 Diaphragmatic hernia without obstruction or gangrene
CPT/HCPCS: 74246

== ENCOUNTER 2022-10-07 13:20 | Outpatient (CLI) | payer MEDICARE, SELFPAY ==
--- NOTE | ~2022-10-07 | CT_ITS ---
EXAMINATION: CT abdomen w con INDICATION: Abdominal pain TECHNIQUE: Computed tomographic images of the abdomen were obtained after the administration of 100 c c of Omnipaque 350 intravenous contrast. The dose-length product (DLP) was 304.25 mGy-cm. Automated e xposure control and iterative reconstruction technique were employed. COMPARISON: 05/03/2021 FINDINGS: Minimal dependent atelectasis is present in the lung bases. The heart size is normal. There is a large hiatal hernia with organoaxial volvulus. Much of the stomach is intrathoracic in location . The gastric antrum is below the diaphragm. Cysts of the liver measure up to 3.4 cm in the right hep atic lobe. The gallbladder is surgically absent. There is mild enlargement of the common bile duct an d central intrahepatic ducts which is likely due to post cholecystectomy state. Punctate calcificatio ns in an otherwise normal spleen likely represent healed granulomatous disease. Cysts of the kidneys measure up to 2.3 cm on the left. There are no pathologically enlarged abdominal lymph nodes. There i s calcified atherosclerosis of the aorta and many of the other arteries. There is no free intraperito magdiel gas or evidence of bowel obstruction. There is moderate lumbar spondylosis. There is a tiny supr aumbilical ventral hernia containing fat. IMPRESSION: 1. Large hiatal hernia with organoaxial volvulus with much of the stomach intrathoracic in location. Reviewed, dictated and finalized at location A. TIC DOLLS MOLD FILLER IMPRESSION: 1. Large hiatal hernia with organoaxial volvulus with much of the stomach intra thoracic in location.
== END 2022-10-07 13:21 | disposition home or self-care (01) ==
PROVIDERS: PCP Family Medicine; Visit Provider Nurse Practitioner Family
DX: R10.9 Unspecified abdominal pain (principal); K44.9 Diaphragmatic hernia without obstruction or gangrene
CPT/HCPCS: 74160; Q9967

== ENCOUNTER 2022-12-19 10:12 | Outpatient (CLI) | payer MEDICARE, SELFPAY ==
--- NOTE | ~2022-12-19 | MM_ITS ---
EXAMINATION: MM screening joseph BI w rk HISTORY: Screening mammogram TECHNIQUE: Craniocaudal and mediolateral oblique 3-D tomosynthesis images were obtained and synthetic 2-D images were generated. CAD analysis was submitted and interpreted. COMPARISON: 01/03/2022 diagnostic bilateral mammogram 11/20/2020 diagnostic right mammogram 09/15/2020, 09/09/2019 bilateral screening mammogram examinations BREAST PARENCHYMAL COMPOSITION: There are scattered areas of fibroglandular density. FINDINGS: Scattered bilateral occasional benign calcifications.. There is no evidence of suspicious m ass, calcification, or architectural distortion to suggest malignancy in either breast. There has bee n no suspicious interval change. IMPRESSION: 1. No mammographic evidence of malignancy. 2. Recommend routine screening mammography in one year. BI-RADS Category 2: Benign finding(s). Reviewed, dictated and finalized at location A. CORRECTION OFFICER
== END 2022-12-19 10:13 | disposition home or self-care (01) ==
PROVIDERS: PCP Family Medicine; Visit Provider Obstetrics & Gynecology
DX: Z12.31 Encounter for screening mammogram for malignant neoplasm of breast (principal)
CPT/HCPCS: 77063; 77067

== ENCOUNTER 2023-02-20 10:17 | Outpatient (CLI) | payer MEDICARE, SELFPAY ==
[2023-02-20 19:16] LABS: Alanine Aminotransferase 10 U/L (6-35); Albumin Level 4.2 g/dL (3.5-5.1); Alkaline Phosphatase 90 U/L (38-126); Anion Gap 5 mmol/L (8-16); Aspartate Amino Transferase 23 U/L (14-36); Bilirubin,Total 0.8 mg/dL (0.2-1.3); Blood Urea Nitrogen 9 mg/dL (7-17); Calcium 10.4 mg/dL (8.4-10.2); Carbon Dioxide 30 mmol/L (22-30); Chloride 101 mmol/L (98-107); Cholesterol 151 mg/dL (0-200); Estimated Glomerular Filt Rate > 60; Glucose 92 mg/dL (65-110); HDL Direct 48 mg/dL; Potassium 4.3 mmol/L (3.4-5.0); Sodium 136 mmol/L (137-145); Triglycerides 210 mg/dL (<150)
[2023-02-20 19:21] LABS: Basophils Absolute Auto 0.1 K/mm3 (0.0-0.1); Basophils Percent Auto 0.5 % (0.2-1.2); Eosinophils Absolute Auto 0.1 K/mm3 (0-0.3); Eosinophils Percent Auto 0.7 % (0-4.4); Hematocrit 42.7 % (37.0-47.0); Hemoglobin 14.3 g/dL (12.0-15.0); Immature Granulocyte Absolute 0.02 K/mm3 (0.00-0.031); Immature Granulocyte Percent A 0.2 % (0-0.5); Lymphocytes Absolute Auto 2.24 K/mm3 (0.9-3.2); Lymphocytes Percent Auto 23.8 % (18.3-44.2); Mean Corpuscular HGB Conc 33.5 g/dl (32-36); Mean Corpuscular Hemoglobin 32.1 pg (26-34); Mean Platelet Volume 9.8 fl (7.4-10.4); Monocytes Absolute Auto 0.4 K/mm3 (0.1-0.6); Monocytes Percent Auto 4.6 % (2.6-8.5); Neutrophils Absolute Auto 6.6 K/mm3 (1.3-6.7); Neutrophils Percent Auto 70.2 % (45.5-73.1); Platelet Count Result 254 k/mm3 (150-375); Red Blood Count 4.45 M/mm3 (4.2-5.4); Red Cell Distribution Width 12.4 % (11.5-14.5); White Blood Count 9.4 K/mm3 (4.5-10.0)
[2023-02-20 19:26] LABS: LDL Cholesterol Direct 60 mg/dL
[2023-02-20 19:32] LABS: Rheumatoid Factor < 12.0 IU/ML (<12)
[2023-02-20 20:21] LABS: Erythrocyte Sedimentation Rate 7 mm/hr (0-20)
== END 2023-02-20 10:18 | disposition home or self-care (01) ==
LOC: ANHGOSHLAB 10:19
PROVIDERS: PCP Family Medicine; Visit Provider Family Medicine
DX: R07.9 Chest pain, unspecified (principal); M25.50 Pain in unspecified joint; R53.83 Other fatigue; E78.2 Mixed hyperlipidemia; I10 Essential (primary) hypertension; R20.2 Paresthesia of skin; E55.9 Vitamin D deficiency, unspecified
CPT/HCPCS: 36415; 80053; 80061; 82306; 84443; 85025; 85652; 86430

== ENCOUNTER → 2023-02-20 10:30 | Outpatient (CLI) | payer MEDICARE, SELFPAY ==
--- NOTE | ~2023-02-20 | XR_ITS ---
Clinical Indication: Chest pain PA and lateral views of the chest: Comparison: 09/20/2022 Findings: The lungs are clear, without evidence of focal consolidation or pleural effusion. Cardiome diastinal silhouette is within normal limits. Moderate to large hiatal hernia present. Impression: Moderate to large hiatal hernia. Clear lungs. Reviewed, dictated and finalized at location . Impression: Moderate to large hiatal hernia. Clear lungs.
== END ==
PROVIDERS: PCP Family Medicine; Visit Provider Family Medicine
DX: R07.89 Other chest pain (principal); K44.9 Diaphragmatic hernia without obstruction or gangrene
CPT/HCPCS: 71046

== ENCOUNTER 2023-07-21 09:11 | Outpatient (CLI) | payer MEDICARE, SELFPAY ==
[2023-07-21 18:36] LABS: Alanine Aminotransferase 10 U/L (6-35); Albumin Level 4.3 g/dL (3.5-5.1); Alkaline Phosphatase 81 U/L (38-126); Anion Gap 5 mmol/L (8-16); Aspartate Amino Transferase 21 U/L (14-36); Bilirubin,Total 0.9 mg/dL (0.2-1.3); Blood Urea Nitrogen 8 mg/dL (7-17); Calcium 10.1 mg/dL (8.4-10.2); Carbon Dioxide 32 mmol/L (22-30); Chloride 97 mmol/L (98-107); Cholesterol 165 mg/dL (0-200); Estimated Glomerular Filt Rate > 60; Glucose 94 mg/dL (65-110); HDL Direct 49 mg/dL; Sodium 134 mmol/L (137-145); Triglycerides 212 mg/dL (<150)
[2023-07-21 18:47] LABS: LDL Cholesterol Direct 70 mg/dL
[2023-07-21 19:48] LABS: Basophils Percent Auto 0.3 % (0.2-1.2); Eosinophils Absolute Auto 0.1 K/mm3 (0-0.3); Hematocrit 43.3 % (37.0-47.0); Hemoglobin 14.5 g/dL (12.0-15.0); Immature Granulocyte Absolute 0.03 K/mm3 (0.00-0.031); Immature Granulocyte Percent A 0.3 % (0-0.5); Lymphocytes Absolute Auto 2.77 K/mm3 (0.9-3.2); Mean Corpuscular HGB Conc 33.5 g/dl (32-36); Mean Corpuscular Hemoglobin 32.6 pg (26-34); Mean Corpuscular Volume 97.3 fl (80-100); Mean Platelet Volume 9.9 fl (7.4-10.4); Monocytes Absolute Auto 0.5 K/mm3 (0.1-0.6); Monocytes Percent Auto 5.7 % (2.6-8.5); Neutrophils Absolute Auto 5.5 K/mm3 (1.3-6.7); Neutrophils Percent Auto 61.7 % (45.5-73.1); Platelet Count Result 279 k/mm3 (150-375); Red Blood Count 4.45 M/mm3 (4.2-5.4); Red Cell Distribution Width 12.2 % (11.5-14.5); White Blood Count 8.9 K/mm3 (4.5-10.0)
== END 2023-07-21 09:12 | disposition home or self-care (01) ==
PROVIDERS: PCP Family Medicine; Visit Provider Family Medicine
DX: D72.829 Elevated white blood cell count, unspecified (principal); E78.2 Mixed hyperlipidemia; E87.1 Hypo-osmolality and hyponatremia; R53.83 Other fatigue
CPT/HCPCS: 36415; 80053; 80061; 84443; 85025

== ENCOUNTER 2023-08-08 09:22 | Outpatient (CLI) | payer MEDICARE, SELFPAY ==
--- NOTE | ~2023-08-08 | XR_ITS ---
AP view of the pelvis and AP and lateral views of the left hip Clinical history: Pain Findings: No acute fracture or dislocation is seen. Osseous alignment is anatomic. Bilateral hip and SI joint spaces are preserved. Soft tissues are unremarkable. Impression: No significant abnormality is seen. Reviewed, dictated and finalized at [facility]. Impression: No significant abnormality is seen.
--- NOTE | ~2023-08-08 | XR_ITS ---
Lumbosacral Spine: AP and lateral views Clinical History: Pain Findings: The normal lordotic curve is maintained. No fracture evident. 6 mm retrolisthesis of L2 ove r L3 noted. There is moderate to advanced facet arthropathy throughout the lumbar spine. The sacroili ac joints are normally outlined. Impression: 6 mm retrolisthesis of L2 over L3. Moderate to advanced facet arthropathy in the lumbar spine. Reviewed, dictated and finalized at location . Impression: 6 mm retrolisthesis of L2 over L3. Moderate to advanced facet arthropathy in the lumbar spine.
== END 2023-08-08 09:23 | disposition home or self-care (01) ==
LOC: ANHIMG 09:30
PROVIDERS: PCP Family Medicine; Visit Provider Family Medicine
DX: M47.816 Spondylosis without myelopathy or radiculopathy, lumbar region (principal); M25.552 Pain in left hip
CPT/HCPCS: 72100; 73502

== ENCOUNTER 2023-11-03 08:55 | Outpatient (CLI) | payer MEDICARE, SELFPAY ==
[2023-11-03 13:27] LABS: Alanine Aminotransferase 9 U/L (6-35); Albumin Level 3.9 g/dL (3.5-5.1); Alkaline Phosphatase 81 U/L (38-126); Anion Gap 6 mmol/L (8-16); Aspartate Amino Transferase 21 U/L (14-36); Bilirubin,Total 0.7 mg/dL (0.2-1.3); Blood Urea Nitrogen 7 mg/dL (7-17); Calcium 10.3 mg/dL (8.4-10.2); Carbon Dioxide 31 mmol/L (22-30); Chloride 95 mmol/L (98-107); Estimated Glomerular Filt Rate > 60; Glucose 89 mg/dL (65-110); Potassium 4.3 mmol/L (3.4-5.0); Sodium 132 mmol/L (137-145)
[2023-11-04 09:47] LABS: Parathyroid Intact 120.4 pg/mL (7.5-53.5)
== END 2023-11-03 08:56 | disposition home or self-care (01) ==
LOC: ANHGOSHLAB 08:56
PROVIDERS: PCP Family Medicine; Visit Provider Family Medicine
DX: I10 Essential (primary) hypertension (principal)
CPT/HCPCS: 36415; 80053; 83970

== ENCOUNTER 2023-12-31 10:58 | Outpatient (CLI) | payer MEDICARE, SELFPAY ==
--- NOTE | ~2023-12-31 | XR_ITS ---
EXAMINATION: XR abdomen/kub 1V DATE: 12/31/2023 11:18 INDICATION: Low abdominal pain. Dysuria. TECHNIQUE: A supine view of the abdomen on 2 radiographs was obtained. COMPARISON: CT abdomen and pelvis 10/07/2022 FINDINGS: There are no dilated loops of bowel. There is a small volume of stool in the colon. Surgica l clips in the right upper quadrant are likely from cholecystectomy. IMPRESSION: 1. Nonobstructive bowel gas pattern. Reviewed, dictated and finalized at location E. L REED TUNER
[2023-12-31 11:38] LABS: Hematocrit 38.2 % (37.0-47.0); Hemoglobin 12.5 g/dL (12.0-15.0); Mean Corpuscular HGB Conc 32.7 g/dl (32-36); Mean Corpuscular Hemoglobin 31.4 pg (26-34); Mean Platelet Volume 8.6 fl (7.4-10.4); Platelet Count Result 455 k/mm3 (150-375); Red Blood Count 3.98 M/mm3 (4.2-5.4); Red Cell Distribution Width 11.9 % (11.5-14.5)
[2023-12-31 11:48] LABS: Alanine Aminotransferase 8 U/L (6-35); Albumin Level 3.7 g/dL (3.5-5.1); Alkaline Phosphatase 85 U/L (38-126); Anion Gap 4 mmol/L (8-16); Aspartate Amino Transferase 14 U/L (14-36); Bilirubin,Total 0.5 mg/dL (0.2-1.3); Blood Urea Nitrogen 9 mg/dL (7-17); Calcium 10.4 mg/dL (8.4-10.2); Carbon Dioxide 28 mmol/L (22-30); Chloride 99 mmol/L (98-107); Estimated Glomerular Filt Rate > 60; Glucose 102 mg/dL (65-110); Lipase 54 U/L (23-300); Potassium 4.1 mmol/L (3.4-5.0); Sodium 131 mmol/L (137-145)
== END 2023-12-31 10:59 | disposition home or self-care (01) ==
PROVIDERS: PCP Family Medicine; Visit Provider Physician Assistant
DX: R10.9 Unspecified abdominal pain (principal); Z13.1 Encounter for screening for diabetes mellitus; D64.9 Anemia, unspecified
CPT/HCPCS: 36415; 74018; 80053; 83690; 85027

== ENCOUNTER 2024-01-02 09:04 | Inpatient (IN) | payer MEDICARE, SELFPAY ==
[2024-01-02] VITALS (10 sets, daily range): BP systolic 163–196; BP diastolic 78–108; PULSE 67–91; RESP 14–16; TEMP 36.4–36.8; O2SAT 97–100; BMI 23.9
--- NOTE | ~2024-01-02 | XR_ITS ---
EXAMINATION: XR chest 1V portable INDICATION: Cough, recent flu TECHNIQUE: Portable AP chest at 0937 hours COMPARISON: 02/20/2023 FINDINGS: There is a large hiatal hernia. The lungs are free of acute opacities. No pleural effusion or pneumothorax. The heart size is normal. IMPRESSION: 1. No acute cardiopulmonary abnormality. 2. Large hiatal hernia. Reviewed, dictated and finalized at location B. EL ROOFER
--- NOTE | ~2024-01-02 | CT_ITS ---
CT of the Abdomen and Pelvis: Indication: Abdominal pain Technique: 2.5 mm axial scans were obtained through the abdomen and pelvis following intravenous adm inistration of 100 cc of Omnipaque 350. Dose reduction technique was used on this scan by utilizing a utomated exposure control and iterative reconstruction technique. The dose-length product (DLP) was 4 11.86 mGy-cm. COMPARISON: 10/07/2022 Findings: Scans through the lung bases demonstrate large hiatal hernia, containing essentially entir e stomach, with organoaxial volvulus, similar to prior exam.. Stable hepatic cysts. Cholecystectomy clips are present. The spleen, pancreas, adrenals and kidneys a re within normal limits. There are atherosclerotic calcifications of the aorta. No lymphadenopathy. There is stable wall thickening and pericolonic inflammatory change at the mid to distal sigmoid colo n with underlying diverticular disease, most consistent with acute diverticulitis. No abscess or free air. No bowel obstruction. Images through the pelvis were performed. Urinary bladder unremarkable. No pelvic mass seen. No ascit es. Impression: Acute sigmoid diverticulitis, as detailed above. No bowel obstruction, abscess, or free air. Stable large hiatal hernia containing the entire stomach with organoaxial volvulus. Reviewed, dictated and finalized at location . AN SALES CONSULTANT Impression: Acute sigmoid diverticulitis, as detailed above. No bowel obstruction, abscess, or free air. Stable large hiatal hernia containing the entire stomach with organoaxial volvu jess.
--- NOTE | 2024-01-02 09:30 | ECG_ITS ---
Measurements Intervals [place] Rate: 68 P: 8 IN: 216 QRS: 75 QRSD: 89 T: 60 QT: 390 QTc: 417 Interpretive Statements SINUS RHYTHM WITH FIRST DEGREE AV BLOCK DELAYED PRECORDIAL R/S TRANSITION MINIMAL Q WAVES- INFERIOR LEADS BORDERLINE T WAVE ABNORMALITY- LATERAL LEADS BASELINE ARTIFACT- I, II, AVR BORDERLINE ECG COMPARED TO ECG 05/30/2022 12:17:47 SINUS RHYTHM NOW PRESENT Electronically Signed On 01-02-2024 12:14:16 SPANISHER by Cain Pederson D.O.
[2024-01-02 09:38] LABS: Basophils Percent Auto 0.3 % (0.2-1.2); Eosinophils Absolute Auto 0.1 K/mm3 (0-0.3); Eosinophils Percent Auto 0.5 % (0-4.4); Hematocrit 42.6 % (37.0-47.0); Hemoglobin 13.8 g/dL (12.0-15.0); Immature Granulocyte Absolute 0.15 K/mm3 (0.00-0.031); Immature Granulocyte Percent A 1.6 % (0-0.5); Lymphocytes Absolute Auto 2.47 K/mm3 (0.9-3.2); Lymphocytes Percent Auto 27.1 % (18.3-44.2); Mean Corpuscular HGB Conc 32.4 g/dl (32-36); Mean Corpuscular Hemoglobin 31.2 pg (26-34); Mean Corpuscular Volume 96.4 fl (80-100); Mean Platelet Volume 8.7 fl (7.4-10.4); Monocytes Absolute Auto 0.5 K/mm3 (0.1-0.6); Neutrophils Percent Auto 65.5 % (45.5-73.1); Platelet Count Result 497 k/mm3 (150-375); Red Blood Count 4.42 M/mm3 (4.2-5.4); Red Cell Distribution Width 11.8 % (11.5-14.5); White Blood Count 9.1 K/mm3 (4.5-10.0)
[2024-01-02 09:41] LABS: Appearance Urine Turbid (Clear); Bacteria Urine 1+ /hpf; Bilirubin Urine Negative (Negative); Blood Urine 3+ (Negative); Color Urine Yellow (Yellow); Glucose Urine UA Negative (Negative); Ketones Urine Negative (Negative); Leukocyte Esterase Ur 3+ LEU/UL (Negative); Nitrate Urine Negative (Negative); Protein Urine 2+ mg/dL (Negative); RBC Urine 51-100 /hpf (0-2); Specific Grav Ur 1.011 (1.001-1.035); Squamous Epithelial Cell Urine Occasional /hpf (Few); Urobilinogen Urine 0.2 mg/dL (<2.0); WBC Urine >100 /hpf
[2024-01-02 09:44] LABS: Add Urine Microscopic? YES
[2024-01-02 09:48] LABS: Alanine Aminotransferase 10 U/L (6-35); Albumin Level 4.1 g/dL (3.5-5.1); Alkaline Phosphatase 96 U/L (38-126); Anion Gap 6 mmol/L (8-16); Aspartate Amino Transferase 18 U/L (14-36); Bilirubin,Total 0.6 mg/dL (0.2-1.3); Blood Urea Nitrogen 7 mg/dL (7-17); Calcium 10.8 mg/dL (8.4-10.2); Carbon Dioxide 29 mmol/L (22-30); Chloride 99 mmol/L (98-107); Estimated CRCL calculation 47 ml/min; Estimated Glomerular Filt Rate > 60; Glucose 109 mg/dL (65-110); Sodium 134 mmol/L (137-145)
--- NOTE | 2024-01-02 09:57 | ED.GENADULT ---
HPI - General Adult General Chief complaint: Urogenital-Female Stated complaint: urinary frequency Time Seen by Provider: 01/02/24 09:21 History of Present Illness HPI narrative: Patient 83-year-old female who presents emergency department with chief complaint of generalized malaise. The patient reports that she had the flu about 2-3 weeks ago and reports that she started having discomfort in her low abdomen and has had urinary frequency. Patient reports she felt as though she had a urinary tract infection her outpatient urinalysis that did not show evidence GI. Patient reports that she has felt a little nauseated reports that she has had a generalized weakness and has also felt shaky. Related Data Home Medications Medication Instructions Recorded Confirmed multivitamin 1 tablet PO DAILY 08/07/21 12/29/23 Allergies Allergy/AdvReac Type Severity Reaction Status Date / Time Antihistamines - Alkylamine Allergy Unknown Unknown Verified 01/02/24 09:05 Sulfa (Sulfonamide Allergy Unknown Unknown Verified 01/02/24 09:05 Antibiotics) Review of Systems Review of Systems: A 10 system review of systems was completed on the patient and is negative except for what is stated in the HPI. Nursing and ancillary documentation was reviewed. [facility] Past Medical History Medical History Adenomatous colon polyp Esophagitis Essential hypertension Gastroesophageal reflux disease Hiatal hernia History of esophageal stricture History of kidney stones History of myocardial infarction Hypertriglyceridemia Intermittent low back pain Osteopenia Sciatica Upper abdominal pain Vitamin D deficiency Surgical History Surgical History History of cholecystectomy (~1989) History of colonoscopy with polypectomy History of esophageal dilatation (~1990) History of hysterectomy (~1989) History of partial thyroidectomy (Unknown) Left. Family History Family History Father Family history of cardiovascular disease Mother Carcinoma of colon Sibling Heart attack Social History Social History Social History: Surrogate decision maker: Morris Min, spouse. Code status: Full code. Smoking status: Never smoker Second hand tobacco smoke exposure: No Alcohol intake: never Substance use: never Substance use type: does not use Lack of Transportation: No Lack of Food: Never True Current Housing: I Have Housing Concerned About Future Housing: No Difficulty Paying Gas/Electric Bills: No Difficulty Paying for Meds: No Currently Unemployed: No Education: High School Diploma/GED Difficulty w/ Childcare or Family Care: No Living arrangements: with family Additional living arrangements comments: The patient lives in [place] with her . Occupation/Education: retired Additional occupation/education comments: Retired. Gender identity (if verbalized by the patient): Female Sexual Orientation (if Verbalized by the Patient): Straight or Heterosexual Spiritual care concerns: No Agree to blood products: Yes Exam Narrative: GENERAL: Well-appearing, well-nourished, and in no acute distress. HEAD: Normocephalic, atraumatic. EYES: PERRLA and EOMI. ENT: Nares clear, no rhinorrhea or epistaxis. Mucous membranes moist. NECK: Supple. CHEST: Clear to auscultation. No respiratory distress. HEART: Regular rate and rhythm. No murmur heard. Normal peripheral pulses. ABDOMEN: Soft, tenderness to palpation bilateral lower quadrants and suprapubic, nondistended, normal active bowel sounds. EXTREMITIES: Normal range of motion. No edema. SKIN: Warm, dry, no rash. NEURO: No focal deficits. Alert and oriented x3. PSYCH: Normal mood and affect. Course Vi
[2024-01-02 09:59] LABS: Troponin I < 0.012 ng/mL (0.000-0.034)
[2024-01-02 10:08] LABS: Lactic Acid Reflex 1.5 mmol/L (0.7-2.0)
[2024-01-02 10:14] LABS: Influenza A QL RT-PCR Negative (Negative); Influenza B QL RT-PCR Negative (Negative); RSV RNA, RT-PCR Negative (Negative); SARS-CoV-2 RNA PCR Positive (Negative)
--- NOTE | 2024-01-02 12:50 | ECG_ITS ---
Measurements Intervals [place] Rate: 81 P: 30 TN: 214 QRS: -16 QRSD: 93 T: 2 QT: 366 QTc: 426 Interpretive Statements SINUS RHYTHM WITH FIRST DEGREE AV BLOCK LEFT VENTRICULAR HYPERTROPHY DELAYED PRECORDIAL R/S TRANSITION MINIMAL Q WAVES- HIGH LATERAL LEADS BORDERLINE T WAVE ABNORMALITY- ANT/LAT LEADS BORDERLINE ECG COMPARED TO ECG 01/02/2024 11:00:34 LEFT VENTRICULAR HYPERTROPHY NOW PRESENT Electronically Signed On 01-03-2024 7:22:43 CUSTOMER SUPPORT ASSOCIATE by Cain Pederson D.O.
[2024-01-02 13:16] LABS: Troponin I < 0.012 ng/mL (0.000-0.034)
--- NOTE | 2024-01-02 13:47 | PM.IMHP ---
H&P: HPI History of Present Illness Date/Time: 01/02/24 13:45 Chief Complaint: Multiple complaints. Narrative: This is an 83-year-old female with hypertension, dependent edema, and gastroesophageal reflux disease who presented to the emergency department for evaluation of multiple complaints. The patient provides the following history. She has not been feeling well for nearly 6 weeks and initially had symptoms for respiratory infection for which she was seen at a local urgent care at which time she was diagnosed with influenza and was prescribed Tamiflu. She continued to have sinus congestion and drainage and was prescribed cephalexin about 2 weeks into her symptoms although it was thought perhaps she was suffering from allergies and she was prescribed Claritin. Her URI symptoms have since resolved. About 3 weeks ago she developed urinary symptoms but a UA done at her doctor's office was unremarkable. She was treated with fluconazole x1 for suspected yeast infection due to recent antibiotic use. Due to ongoing symptoms she had another urinalysis performed and was prescribed amoxicillin though her urine culture came back with no growth. With further questioning she reports having pressure-like discomfort diffusely throughout the lower abdomen and today her abdomen was bloated and she was passing quite a bit of gas. She has had some loose stools intermittently but denies blood in mucus. She has not had fever, chills, or sweats. She is not currently having headache, sinus congestion, sore throat, or cough. In the ED: She was afebrile on arrival. Blood pressures have been running in the 160s to 190s systolic. Labs were significant for WBC count of 9.1, sodium 134, calcium 10.8, lactic acid 1.5, troponin less than 0.012. Urine was positive for 2+ protein, 3+ blood, 3+ leukocyte esterase, 51 to 100 RBC, greater than 100 WBC, 1+ bacteria, and occasional squamous cells. She tested negative for influenza and RSV but was positive for SARS-CoV-2 by PCR. Chest x-ray showed a large hiatal hernia but no acute cardiopulmonary disease. CT of the abdomen pelvis showed acute sigmoid diverticulitis and a stable, large hiatal hernia containing the entire stomach with organoaxial volvulus which has been noted on prior imaging. She received a dose of Zosyn in the ED and is being admitted in this setting for further treatment. Review of Systems Review of Systems: Twelve systems were reviewed and are negative except for as per HPI. PMFSH Past Medical History Medical History (Updated 01/02/24 @ 23:00 by Aide Sanchez PA-C) Adenomatous colon polyp Esophageal stricture Esophagitis Essential hypertension Gastroesophageal reflux disease Hiatal hernia Hypertriglyceridemia Intermittent low back pain Kidney stones Osteopenia Sciatica Vitamin D deficiency Surgical History Surgical History (Updated 01/02/24 @ 13:50 by Aide Sanchez PA-C) History of cholecystectomy (1989) History of colonoscopy with polypectomy History of esophageal dilatation (1990) History of hysterectomy (1989) History of partial thyroidectomy (Unknown) Left. Family History Family History Father Family history of cardiovascular disease Mother Carcinoma of colon Sibling Heart attack Social History Social History (Updated 01/02/24 @ 13:51 by Aide Sanchez PA-C) Social History: Surrogate decision maker: Morris Min, spouse. Code status: Full code. Smoking status: Never smoker Second hand tobacco smoke exposure: No Alcohol intake: never Substance use: never Substance use type: does not use Do You Feel Safe in your Home?: Yes Lack of Transportation: No Lack of Food: Never True Current Housing: I Have Housing Concerned About Future Housing: No Difficulty Paying Gas/Electric Bills: No Difficulty Paying for Meds: No Currently Unemployed: No Education: High School Diploma/GED Di
[2024-01-02] MEDS: ACETAMINOPHEN 325 MG TABLET 650 MG PO ×2 (14:09→20:36)
[2024-01-02] MEDS: PIPERACILLN/TAZ 3.375GM/NS50ML 3.375 GM/50 ML BAG IVPB ×3 (14:09→23:15)
--- NOTE | 2024-01-02 14:36 | PC.NURSE ---
This patient, Shonda Min, was admitted to [facility] Surg Room 312-01. Patient/family oriented to hospital policies and general routines including ID bracelet, bed and alarms, visiting hours, pain management, procedures, bathroom and other care routines, personal items, smoking policy, room service/diet, and visiting hours. Information on how to activate the Rapid Response Team has been discussed. Patient/Family are encouraged to report perceived risks to care and to ask questions if they do not understand what they are told or what they should do.
[2024-01-02] MEDS: SODIUM CHLORIDE 0.9% IV 1,000 ML 100 ML IV CONT (14:49)
[2024-01-02] MEDS: METOPROLOL TARTRATE 50 MG TAB PO (23:15)
[2024-01-03] MEDS: ACETAMINOPHEN 325 MG TABLET 650 MG PO ×2 (03:15→17:00)
[2024-01-03] MEDS: PIPERACILLN/TAZ 3.375GM/NS50ML 3.375 GM/50 ML BAG IVPB ×3 (05:30→17:01)
[2024-01-03 05:44] VITALS: BP 181/76; PULSE 65; RESP 13; TEMP 36.2; O2SAT 98
[2024-01-03 06:15] LABS: Basophils Percent Auto 0.4 % (0.2-1.2); Eosinophils Absolute Auto 0.1 K/mm3 (0-0.3); Eosinophils Percent Auto 0.9 % (0-4.4); Hemoglobin 12.1 g/dL (12.0-15.0); Immature Granulocyte Absolute 0.08 K/mm3 (0.00-0.031); Immature Granulocyte Percent A 0.9 % (0-0.5); Lymphocytes Percent Auto 30.9 % (18.3-44.2); Mean Corpuscular HGB Conc 32.7 g/dl (32-36); Mean Corpuscular Hemoglobin 31.3 pg (26-34); Mean Corpuscular Volume 95.6 fl (80-100); Mean Platelet Volume 8.9 fl (7.4-10.4); Monocytes Absolute Auto 0.5 K/mm3 (0.1-0.6); Neutrophils Absolute Auto 5.8 K/mm3 (1.3-6.7); Neutrophils Percent Auto 61.9 % (45.5-73.1); Platelet Count Result 400 k/mm3 (150-375); Red Blood Count 3.87 M/mm3 (4.2-5.4); Red Cell Distribution Width 11.7 % (11.5-14.5); White Blood Count 9.4 K/mm3 (4.5-10.0)
[2024-01-03 06:28] LABS: Anion Gap 3 mmol/L (8-16); Blood Urea Nitrogen 7 mg/dL (7-17); Calcium 10.3 mg/dL (8.4-10.2); Carbon Dioxide 28 mmol/L (22-30); Chloride 103 mmol/L (98-107); Estimated CRCL calculation 47 ml/min; Estimated Glomerular Filt Rate > 60; Glucose 94 mg/dL (65-110); Magnesium 1.8 mg/dL (1.6-2.3); Potassium 4.2 mmol/L (3.4-5.0); Sodium 134 mmol/L (137-145)
[2024-01-03 08:00] VITALS: PULSE 75; RESP 16; O2SAT 98
[2024-01-03 08:40] VITALS: O2SAT 98
[2024-01-03] MEDS: CHOLECALCIFEROL 1,000 UNITS TABLET 1000 UNITS PO (09:09)
[2024-01-03] MEDS: PANTOPRAZOLE 40 MG TABLET PO (09:09)
[2024-01-03] MEDS: MULTIVITAMINS THERAPEUTIC TAB (*BKC) 1 TABLET PO (09:10)
[2024-01-03] MEDS: METOPROLOL TARTRATE 50 MG TAB PO ×2 (09:10→20:51)
[2024-01-03] MEDS: ENOXAPARIN 40 MG/0.4 ML SYRINGE SUB-Q (09:11)
--- NOTE | 2024-01-03 12:23 | PM.IMPN ---
Progress Note: A&P Assessment and Plan (1) Diverticulitis: Code(s): K57.92 - Diverticulitis of intestine, part unspecified, without perforation or abscess without bleeding Status: Acute (2) Urinary tract infection: Code(s): N39.0 - Urinary tract infection, site not specified Status: Resolved (3) COVID: Code(s): U07.1 - COVID-19 Status: Acute (4) Essential hypertension: Code(s): I10 - Essential (primary) hypertension Status: Acute Plan The patient presented to the emergency department for evaluation of multiple complaints. Patient has not been feeling well over the past 6 weeks initially started with respiratory infection was diagnosed with influenza was prescribed Tamiflu. She continued to have sinus congestion and drainage and was prescribed cephalexin about 2 weeks into her symptoms although it was thought perhaps he was suffering from allergies and was prescribed Claritin. Her URI symptoms at since resolved. About 3 weeks ago she developed urinary symptoms and went to the doctor's office but was unremarkable. She was given fluconazole for possible yeast infection she had ongoing symptoms and had another UA done and was biotics but her urine culture came back with no growth. She continued to have lower abdominal discomfort and bloating sensation with no blood in mucus no fever chills. She came to the ER for evaluation. In the EDC was AFib. Blood pressure was elevated WBC count normal lactate normal troponin negative UA is positive for UTI. She tested negative for influenza and RSV for positive for COVID. This might be a remnant of recent respiratory infection that she had which probably was related to COVID infection. She has no oxygen requirement thus no indication for remdesivir or dexamethasone. She has been on antibiotics for both UTI and URI symptoms but her UA remains abnormal and incidentally a CT scan showed evidence of acute diverticulitis. She has been started Zosyn to cover both, follow blood and urine cultures. Analgesics and antiemetics are available as needed. Blood pressures have been running a bit high and will be monitored closely. Diet as tolerated. Her home medications will be reviewed and resumed as appropriate. DVT prophylaxis with Lovenox Subjective Date/time seen: 01/03/24 12:23 Interval history: Feeling much better. Lower abdominal discomfort has improved. No fever chills Review of Systems Review of Systems: All systems reviewed & are unremarkable except as noted in HPI and below Exam Narrative: General:?Well-developed, nontoxic-appearing elderly female in the semi-Sierra position in bed. HEENT:??PERRL, EOMI.? Sclerae anicteric.??Tacky mucous membranes. Neck:??Supple. ? No JVD. Respiratory:?Lungs are clear to auscultation bilaterally. Cardiovascular:??Regular rate and rhythm with S1-S2.? Gastrointestinal:??Abdomen is soft and nondistended with positive bowel sounds. Held lower abdominal tenderness Skin:??Warm and dry.? No rash or lesions on limited exam. Extremities:??No cyanosis or clubbing.? 1+ pedal edema to mid traylor bilaterally.? Radial and pedal pulses intact. Neurological:??Alert.? Cranial nerves 2-12 are grossly intact. No gross focal deficits to casual conversation. Psychiatric:??Pleasant and cooperative with normal mood and affect.? Judgment and insight intact. Objective Data Vital Signs Vital Signs: Vital Signs - 24 hr 01/02/24 13:00 01/02/24 14:00 01/02/24 14:49 Temperature 98.2 F 97.8 F 97.8 F Pulse Rate 72 72 86 Respiratory Rate 16 16 14 Blood Pressure 166/100 H 190/78 H 187/92 H Pulse Oximetry 98 100 99 Oxygen Delivery 01/02/24 14:49 01/02/24 21:14 01/03/24 05:44 Temperature 97.6 F 97.2 F L Pulse Rate 91 65 Respiratory Rate 14 13 Blood Pressure 196/92 H 163/90 H 181/76 H Pulse Oximetry 97 98 Oxygen Delivery 01/03/24 08:40 01/02/24 14:54 Temperature Pulse Rate 86 Respiratory Rate 14 Blood
[2024-01-03 13:59] VITALS: BP 158/77; PULSE 75; RESP 16; TEMP 36.2; O2SAT 98
[2024-01-03 20:51] VITALS: PULSE 88
[2024-01-03 21:23] VITALS: BP 171/81; PULSE 88; RESP 13; TEMP 36.9; O2SAT 98
[2024-01-03] MEDS: CALCIUM CARBONATE (TUMS) 500 MG (200 MG ELEMENTAL) PO (21:50)
[2024-01-04] MEDS: ACETAMINOPHEN 325 MG TABLET 650 MG PO ×3 (00:40→21:11)
[2024-01-04] MEDS: PIPERACILLN/TAZ 3.375GM/NS50ML 3.375 GM/50 ML BAG IVPB ×4 (00:45→18:59)
--- NOTE | 2024-01-04 03:53 | PC.NURSE ---
Daylight Savings Time For Daylight Savings Time Ending in the Fall - Clocks are moved back. For Daylight Savings Time Beginning in the Spring - Clocks are moved ahead. For [facility], the time of change occurs at 0200 hrs. Time is taken from the sql server developer. This entry on the patient's chart recognizes the change in time reflected during documentation. Example: 2 entries for vital signs may be charted for 0200 hrs.
[2024-01-04 05:41] VITALS: BP 160/75; PULSE 71; RESP 14; TEMP 36.4; O2SAT 97
[2024-01-04 06:40] LABS: Basophils Percent Auto 0.2 % (0.2-1.2); Eosinophils Absolute Auto 0.1 K/mm3 (0-0.3); Eosinophils Percent Auto 0.6 % (0-4.4); Hematocrit 35.1 % (37.0-47.0); Hemoglobin 11.7 g/dL (12.0-15.0); Immature Granulocyte Absolute 0.07 K/mm3 (0.00-0.031); Immature Granulocyte Percent A 0.6 % (0-0.5); Lymphocytes Absolute Auto 2.43 K/mm3 (0.9-3.2); Lymphocytes Percent Auto 19.6 % (18.3-44.2); Mean Corpuscular HGB Conc 33.3 g/dl (32-36); Mean Corpuscular Hemoglobin 31.6 pg (26-34); Mean Corpuscular Volume 94.9 fl (80-100); Mean Platelet Volume 8.9 fl (7.4-10.4); Monocytes Absolute Auto 0.6 K/mm3 (0.1-0.6); Monocytes Percent Auto 4.8 % (2.6-8.5); Neutrophils Absolute Auto 9.2 K/mm3 (1.3-6.7); Neutrophils Percent Auto 74.2 % (45.5-73.1); Platelet Count Result 382 k/mm3 (150-375); Red Cell Distribution Width 11.9 % (11.5-14.5); White Blood Count 12.4 K/mm3 (4.5-10.0)
[2024-01-04 06:51] LABS: Alanine Aminotransferase 7 U/L (6-35); Albumin Level 3.3 g/dL (3.5-5.1); Alkaline Phosphatase 81 U/L (38-126); Anion Gap 5 mmol/L (8-16); Aspartate Amino Transferase 16 U/L (14-36); Bilirubin,Total 0.5 mg/dL (0.2-1.3); Blood Urea Nitrogen 7 mg/dL (7-17); Carbon Dioxide 25 mmol/L (22-30); Chloride 101 mmol/L (98-107); Estimated CRCL calculation 47 ml/min; Estimated Glomerular Filt Rate > 60; Glucose 91 mg/dL (65-110); Magnesium 1.7 mg/dL (1.6-2.3); Potassium 3.6 mmol/L (3.4-5.0); Sodium 131 mmol/L (137-145)
[2024-01-04 09:43] VITALS: PULSE 80
[2024-01-04] MEDS: MULTIVITAMINS THERAPEUTIC TAB (*BKC) 1 TABLET PO (09:43)
[2024-01-04] MEDS: PANTOPRAZOLE 40 MG TABLET PO (09:43)
[2024-01-04] MEDS: METOPROLOL TARTRATE 50 MG TAB PO ×2 (09:43→21:13)
[2024-01-04] MEDS: CHOLECALCIFEROL 1,000 UNITS TABLET 1000 UNITS PO (09:43)
[2024-01-04] MEDS: ENOXAPARIN 40 MG/0.4 ML SYRINGE SUB-Q (09:43)
--- NOTE | 2024-01-04 12:07 | PM.IMPN ---
Progress Note: A&P Assessment and Plan (1) Diverticulitis: Code(s): K57.92 - Diverticulitis of intestine, part unspecified, without perforation or abscess without bleeding Status: Acute (2) Urinary tract infection: Code(s): N39.0 - Urinary tract infection, site not specified Status: Resolved (3) COVID: Code(s): U07.1 - COVID-19 Status: Acute (4) Essential hypertension: Code(s): I10 - Essential (primary) hypertension Status: Acute Plan The patient presented to the emergency department for evaluation of multiple complaints. Patient has not been feeling well over the past 6 weeks initially started with respiratory infection was diagnosed with influenza was prescribed Tamiflu. She continued to have sinus congestion and drainage and was prescribed cephalexin about 2 weeks into her symptoms although it was thought perhaps he was suffering from allergies and was prescribed Claritin. Her URI symptoms at since resolved. About 3 weeks ago she developed urinary symptoms and went to the doctor's office but was unremarkable. She was given fluconazole for possible yeast infection she had ongoing symptoms and had another UA done and was biotics but her urine culture came back with no growth. She continued to have lower abdominal discomfort and bloating sensation with no blood in mucus no fever chills. She came to the ER for evaluation. In the EDC was AFib. Blood pressure was elevated WBC count normal lactate normal troponin negative UA is positive for UTI. She tested negative for influenza and RSV for positive for COVID. This might be a remnant of recent respiratory infection that she had which probably was related to COVID infection. She has no oxygen requirement thus no indication for remdesivir or dexamethasone. She has been on antibiotics for both UTI and URI symptoms but her UA remains abnormal and incidentally a CT scan showed evidence of acute diverticulitis. She has been started Zosyn to cover both, follow blood and urine cultures. Analgesics and antiemetics are available as needed. Blood pressures have been running a bit high and will be monitored closely. Diet as tolerated will advanced to low residue diet. Loose stool could be related to antibiotic. If worsens will do further testing. Her home medications will be reviewed and resumed as appropriate. DVT prophylaxis with Lovenox Subjective Date/time seen: 01/04/24 12:07 Interval history: Having some loose stool. No blood. Denies any abdominal pain. No nausea vomiting. Feels better. Remains afebrile. Review of Systems Review of Systems: All systems reviewed & are unremarkable except as noted in HPI and below Exam Narrative: General:?Well-developed, nontoxic-appearing elderly female in the semi-Sierra position in bed. HEENT:??PERRL, EOMI.? Sclerae anicteric.??Tacky mucous membranes. Neck:??Supple. ? No JVD. Respiratory:?Lungs are clear to auscultation bilaterally. Cardiovascular:??Regular rate and rhythm with S1-S2.? Gastrointestinal:??Abdomen is soft and nondistended with positive bowel sounds. Nontender Skin:??Warm and dry.? No rash or lesions on limited exam. Extremities:??No cyanosis or clubbing.? 1+ pedal edema to mid traylor bilaterally.? Radial and pedal pulses intact. Neurological:??Alert.? Cranial nerves 2-12 are grossly intact. No gross focal deficits to casual conversation. Psychiatric:??Pleasant and cooperative with normal mood and affect.? Judgment and insight intact. Objective Data Vital Signs Vital Signs: Vital Signs - 24 hr 01/03/24 13:59 01/03/24 20:51 01/03/24 21:23 Temperature 97.2 F L 98.5 F Pulse Rate 75 88 88 Respiratory Rate 16 13 Blood Pressure 158/77 H 171/81 H Pulse Oximetry 98 98 Oxygen Delivery 01/03/24 20:00 01/04/24 05:41 01/04/24 09:43 Temperature 97.6 F Pulse Rate 71 80 Respiratory Rate 14 Blood Pressure 160/75 H Pulse Oximetry 97 Oxygen Delivery Room Air
[2024-01-04] MEDS: SACCHAROMYCES BOULARDII 250 MG CAPSULE PO ×2 (13:48→21:13)
[2024-01-04 13:53] VITALS: BP 157/74; PULSE 86; RESP 16; TEMP 36.9; O2SAT 98
[2024-01-04] MEDS: CALCIUM CARBONATE (TUMS) 500 MG (200 MG ELEMENTAL) PO (19:01)
[2024-01-04 21:13] VITALS: PULSE 84
[2024-01-04 21:43] VITALS: BP 172/80; PULSE 84; RESP 20; TEMP 36.5; O2SAT 98
[2024-01-05] MEDS: PIPERACILLN/TAZ 3.375GM/NS50ML 3.375 GM/50 ML BAG IVPB ×3 (00:21→12:16)
[2024-01-05] MEDS: CALCIUM CARBONATE (TUMS) 500 MG (200 MG ELEMENTAL) PO (05:51)
[2024-01-05] MEDS: ACETAMINOPHEN 325 MG TABLET 650 MG PO (05:51)
[2024-01-05] MEDS: SACCHAROMYCES BOULARDII 250 MG CAPSULE PO ×2 (05:51→12:20)
[2024-01-05 05:57] VITALS: BP 191/98; PULSE 71; RESP 18; TEMP 36.9; O2SAT 97
[2024-01-05 06:18] LABS: Basophils Percent Auto 0.3 % (0.2-1.2); Eosinophils Absolute Auto 0.1 K/mm3 (0-0.3); Eosinophils Percent Auto 0.9 % (0-4.4); Hematocrit 36.4 % (37.0-47.0); Hemoglobin 12.2 g/dL (12.0-15.0); Immature Granulocyte Absolute 0.09 K/mm3 (0.00-0.031); Lymphocytes Absolute Auto 2.63 K/mm3 (0.9-3.2); Lymphocytes Percent Auto 29.3 % (18.3-44.2); Mean Corpuscular HGB Conc 33.5 g/dl (32-36); Mean Corpuscular Hemoglobin 31.9 pg (26-34); Mean Platelet Volume 8.8 fl (7.4-10.4); Monocytes Absolute Auto 0.5 K/mm3 (0.1-0.6); Monocytes Percent Auto 5.9 % (2.6-8.5); Neutrophils Absolute Auto 5.6 K/mm3 (1.3-6.7); Neutrophils Percent Auto 62.6 % (45.5-73.1); Platelet Count Result 401 k/mm3 (150-375); Red Blood Count 3.83 M/mm3 (4.2-5.4); Red Cell Distribution Width 11.9 % (11.5-14.5)
[2024-01-05 06:36] LABS: Alanine Aminotransferase 8 U/L (6-35); Albumin Level 3.4 g/dL (3.5-5.1); Alkaline Phosphatase 80 U/L (38-126); Anion Gap 2 mmol/L (8-16); Aspartate Amino Transferase 17 U/L (14-36); Bilirubin,Total 0.5 mg/dL (0.2-1.3); Blood Urea Nitrogen 6 mg/dL (7-17); Calcium 10.3 mg/dL (8.4-10.2); Carbon Dioxide 29 mmol/L (22-30); Chloride 100 mmol/L (98-107); Estimated CRCL calculation 47 ml/min; Estimated Glomerular Filt Rate > 60; Glucose 96 mg/dL (65-110); Magnesium 1.7 mg/dL (1.6-2.3); Potassium 3.6 mmol/L (3.4-5.0); Sodium 131 mmol/L (137-145)
[2024-01-05 08:18] VITALS: PULSE 72
[2024-01-05] MEDS: MULTIVITAMINS THERAPEUTIC TAB (*BKC) 1 TABLET PO (08:18)
[2024-01-05] MEDS: CHOLECALCIFEROL 1,000 UNITS TABLET 1000 UNITS PO (08:18)
[2024-01-05] MEDS: METOPROLOL TARTRATE 50 MG TAB PO (08:18)
[2024-01-05] MEDS: PANTOPRAZOLE 40 MG TABLET PO (08:18)
[2024-01-05] MEDS: ENOXAPARIN 40 MG/0.4 ML SYRINGE SUB-Q (08:18)
[2024-01-05] MEDS: POTASSIUM CHLORIDE 20 MEQ PACKET (FOR LIQUID) PO (08:18)
[2024-01-05 08:45] VITALS: BP 170/68
--- NOTE | 2024-01-05 11:52 | PM.DS ---
DS: Admitting Diagnosis Discharge Date 01/05/2024 Admitting Diagnosis Abdominal pain DS: Discharge Diagnosis Discharge Diagnosis (1) Diverticulitis: Code(s): K57.92 - Diverticulitis of intestine, part unspecified, without perforation or abscess without bleeding Status: Acute (2) Urinary tract infection: Code(s): N39.0 - Urinary tract infection, site not specified Status: Resolved (3) COVID: Code(s): U07.1 - COVID-19 Status: Acute (4) Essential hypertension: Code(s): I10 - Essential (primary) hypertension Status: Acute DS: Summary Hospital Course Hospital Course: The patient presented to the emergency department for evaluation of multiple complaints.? Patient has not been feeling well over the past 6 weeks initially started with respiratory infection was diagnosed with influenza was prescribed Tamiflu.? She continued to have sinus congestion and drainage and was prescribed cephalexin about 2 weeks into her symptoms although it was thought perhaps he was suffering from allergies and was prescribed Claritin.? Her URI symptoms at since resolved.? About 3 weeks ago she developed urinary symptoms and went to the doctor's office but was unremarkable.? She was given fluconazole for possible yeast infection she had ongoing symptoms and had another UA done and was biotics but her urine culture came back with no growth.? She continued to have lower abdominal discomfort and bloating sensation with no blood in mucus no fever chills.? She came to the ER for evaluation.? In the EDC was AFib.? Blood pressure was elevated WBC count normal lactate normal troponin negative UA is positive for UTI.? She tested negative for influenza and RSV for positive for COVID.? This might be a remnant of recent respiratory infection that she had which probably was related to COVID infection.? She has no oxygen requirement thus no indication for remdesivir or dexamethasone. She has been on antibiotics for both UTI and URI symptoms but her UA remains abnormal and incidentally a CT scan showed evidence of acute diverticulitis. She has been started Zosyn to cover both, follow blood and urine cultures which remained negative. Analgesics and antiemetics are available as needed. Blood pressures have been running a bit high and will be monitored closely.? Diet as tolerated and advanced to low residue diet which she tolerated well. Loose stool could be related to antibiotic and remains stable. Her antibiotic will be switched to oral and we discharged on oral antibiotics to complete the course. Her home medications will be reviewed and resumed as appropriate.? DVT prophylaxis with Lovenox Time Spent with Patient Time attestation: Total time spent providing and/or coordinating discharge services: 30 minutes Exam Narrative: General:?Well-developed, nontoxic-appearing elderly female in the semi-Sierra position in bed. HEENT:??PERRL, EOMI.? Sclerae anicteric.??Tacky mucous membranes. Neck:??Supple. ? No JVD. Respiratory:?Lungs are clear to auscultation bilaterally. Cardiovascular:??Regular rate and rhythm with S1-S2.? Gastrointestinal:??Abdomen is soft and nondistended with positive bowel sounds. Nontender Skin:??Warm and dry.? No rash or lesions on limited exam. Extremities:??No cyanosis or clubbing.? 1+ pedal edema to mid traylor bilaterally.? Radial and pedal pulses intact. Neurological:??Alert.? Cranial nerves 2-12 are grossly intact. No gross focal deficits to casual conversation. Psychiatric:??Pleasant and cooperative with normal mood and affect.? Judgment and insight intact. DS: Data Data Completed and Pending Labs on day of discharge: Labs from last 24 hours 01/05/24 06:02 WBC 9.0 RBC 3.83 L Hgb 12.2 Hct 36.4 L MCV 95.0 MCH 31.9 MCHC 33.5 RDW 11.9 Plt Count 401 H MPV 8.8 Immature Gran % (Auto) 1.0 H Neut % (Auto) 62.6 Lymph % (Auto) 29.3 [place] % (Auto) 5.9 Eos % (Auto) 0.9 Baso % (Auto) 0.3 L
== END 2024-01-05 13:10 | disposition home or self-care (01) | DRG 391 ==
LOC: ANHED 12:59 → ANH3MEDSUR 14:07
PROVIDERS: Admitting Provider Internal Medicine; Emergency Provider Emergency Medicine; PCP Family Medicine; Visit Provider Internal Medicine
DX: K57.32 Diverticulitis of large intestine without perforation or abscess without bleeding (principal); U07.1 COVID-19; N39.0 Urinary tract infection, site not specified; I10 Essential (primary) hypertension; K21.9 Gastro-esophageal reflux disease without esophagitis; K44.9 Diaphragmatic hernia without obstruction or gangrene; E78.1 Pure hyperglyceridemia; M85.80 Other specified disorders of bone density and structure, unspecified site; E55.9 Vitamin D deficiency, unspecified; I25.2 Old myocardial infarction; Z86.010 Personal history of colon polyps; Z87.442 Personal history of urinary calculi
CPT/HCPCS: 36415; 71045; 74018; 74177; 80048; 80053; 81001; 83605; 83690; 83735; 84484; 85025; 85027; 87040; 87086; 87637; 93005; 96365; 96372; 99285; A9270; G0378; J1650; J2543; J7030; Q9967

== ENCOUNTER 2024-02-05 08:42 | Outpatient (CLI) | payer MEDICARE, SELFPAY ==
[2024-02-05 12:34] LABS: Parathyroid Intact 113.1 pg/mL (7.5-53.5)
[2024-02-05 12:39] LABS: Albumin Level 4.1 g/dL (3.5-5.1); Alkaline Phosphatase 84 U/L (38-126); Anion Gap 8 mmol/L (4-12); Aspartate Amino Transferase 28 U/L (14-36); Bilirubin,Total 0.6 mg/dL (0.2-1.3); Blood Urea Nitrogen 9 mg/dL (7-17); Calcium 10.5 mg/dL (8.4-10.2); Carbon Dioxide 26 mmol/L (22-30); Chloride 103 mmol/L (98-107); Estimated Glomerular Filt Rate > 60; Glucose 88 mg/dL (65-110); Potassium 4.2 mmol/L (3.4-5.0); Sodium 137 mmol/L (137-145)
[2024-02-05 13:13] LABS: Alanine Aminotransferase < 6 U/L (6-35)
== END 2024-02-05 08:43 | disposition home or self-care (01) ==
LOC: ANHGOSHLAB 08:44
PROVIDERS: PCP Family Medicine; Visit Provider Family Medicine
DX: E83.52 Hypercalcemia (principal); E87.1 Hypo-osmolality and hyponatremia
CPT/HCPCS: 36415; 80053; 83970

== ENCOUNTER 2024-02-12 09:11 | Outpatient (CLI) | payer MEDICARE, SELFPAY ==
--- NOTE | ~2024-02-12 | MM_ITS ---
EXAMINATION: MM screening joseph BI w rk HISTORY: Screening TECHNIQUE: Craniocaudal and mediolateral oblique 3-D tomosynthesis images were obtained and synthetic 2-D images were generated. CAD analysis was submitted and interpreted. COMPARISON: Comparison to multiple prior studies sequentially, with oldest reviewed study dated 08/27. BREAST PARENCHYMAL COMPOSITION: Not dense: There are scattered areas of fibroglandular density. FINDINGS: Stable benign-appearing breast calcifications. There is no evidence of suspicious mass, filippo cification, or architectural distortion to suggest malignancy in either breast. There has been no osei picious interval change. IMPRESSION: 1. No mammographic evidence of malignancy. 2. Recommend routine screening mammography in one year. BI-RADS Category 1: Negative Reviewed, dictated and finalized at location A.
== END 2024-02-12 09:12 | disposition home or self-care (01) ==
PROVIDERS: PCP Family Medicine; Visit Provider Family Medicine
DX: Z12.31 Encounter for screening mammogram for malignant neoplasm of breast (principal)
CPT/HCPCS: 77063; 77067

== ENCOUNTER 2024-03-04 09:14 | Emergency (ER) | payer MEDICARE, SELFPAY ==
[2024-03-04] VITALS (10 sets, daily range): BP systolic 133–203; BP diastolic 69–97; PULSE 61–78; RESP 16–22; TEMP 36.5; O2SAT 97–100
--- NOTE | ~2024-03-04 | CT_ITS ---
CT of the Abdomen and Pelvis: Indication: Abdominal pain Technique: 2.5 mm axial scans were obtained through the abdomen and pelvis following intravenous adm inistration of 100 cc of Omnipaque 350. Dose reduction technique was used on this scan by utilizing a utomated exposure control and iterative reconstruction technique. The dose-length product (DLP) was 3 94.30 mGy-cm. COMPARISON: 01/02/2024 Findings: Scans through the lung bases demonstrated a 1 cm right middle lobe nodular opacity, not cl early present on prior exam (axial image 2). 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 Stable hepatic cysts are present. Mild intrahepatic and extra hepatic biliary dilatation is unchanged , possibly related to prior cholecystectomy. The spleen, pancreas, adrenals and kidneys are within n ormal limits. There are atherosclerotic calcifications of the aorta. No lymphadenopathy. There is wall thickening and mild pericolic fat or stranding at the distal sigmoid colon with underly ing diverticular disease. No abscess or free air evident. No bowel obstruction. Images through the pelvis were performed. Urinary bladder unremarkable. No pelvic mass seen. No ascit es. Impression: Probable mild acute sigmoid diverticulitis. Underlying neoplasm not completely excluded. Consider fol low-up colonoscopy after interval therapy to exclude underlying neoplastic lesion. No abscess, free a ir, or bowel obstruction evident. Large hiatal hernia containing the entire stomach with organoaxial volvulus. 1 cm right middle lobe nodule, not clearly present on prior exam. This is indeterminate. Consider ded icated chest CT to more completely evaluate the chest. Diagnostic considerations include infectious/i nflammatory nodule versus neoplastic/metastatic nodule. Reviewed, dictated and finalized at [facility]. Impression: Probable mild acute sigmoid diverticulitis. Underlying neoplasm not completely excluded. Consider follow-up colonoscopy after interval therapy to exclude unde rlying neoplastic lesion. No abscess, free air, or bowel obstruction evident. Large hiatal hernia containing the entire stomach with organoaxial volvulus. 1 cm right middle lobe nodule, not clearly present on prior exam. This is indet erminate. Consider dedicated chest CT to more completely evaluate the chest. Di agnostic considerations include infectious/inflammatory nodule versus neoplasti c/metastatic nodule.
--- NOTE | 2024-03-04 09:58 | ED.GENADULT ---
HPI - General Adult General Chief complaint: Abdominal Pain Stated complaint: diarrhea, nausea, abd pain Time Seen by Provider: 03/04/24 09:43 History of Present Illness HPI narrative: Shonda Min is an 83 y/o female with PMhx of HTN who presents today with left side/ left lower abdominal pain and diarrhea. She states that she saw her PCP a week ago and they started her on Flagyl and Cipro for diverticulitis because she was having pain and she has a hx of diverticulitis. While taking the antibiotics she started to feel GI upset/ Nausea and started to have diarrhea two days ago/ worse over night last night she was up several times in the night and felt weak - she states she stopped the antibiotics yesterday because it was making her feel worse. She states that she has barely eaten because she has felt nauseated. She states she threw up X1 yesterday. Unsure of any fevers / Pain while at rest is about a 4/10 with palpation rolling to her side or ambulating pain is 10 mostly located to the left lower abdomen. Related Data Home Medications Medication Instructions Recorded Confirmed multivitamin 1 tablet PO DAILY 08/07/21 02/27/24 esomeprazole magnesium 40 mg 40 mg PO DAILY 01/02/24 02/27/24 capsule,delayed release (Nexium) metoprolol tartrate 50 mg tablet 50 mg PO Q12H 01/02/24 02/27/24 Allergies Allergy/AdvReac Type Severity Reaction Status Date / Time Antihistamines - Alkylamine Allergy Unknown Unknown Verified 02/27/24 10:32 Sulfa (Sulfonamide Allergy Unknown Unknown Verified 02/27/24 10:32 Antibiotics) Review of Systems Review of Systems: CONSTITUTIONAL: Denies fever, chills, or sweats. EYES: Denies visual changes, redness, or discharge. ENT: Denies rhinorrhea, congestion, sore throat, or otalgia. CARDIOVASCULAR: Denies chest pain, palpitations, or edema. RESPIRATORY: Denies cough or dyspnea. GASTROINTESTINAL: Reports abdominal pain, nausea, vomiting, and diarrhea. GENITOURINARY: Denies dysuria or hematuria. SKIN: Denies rash or itching. MUSCULOSKELETAL: Denies back pain, joint pain, or myalgia. NEUROLOGIC: Denies headache, numbness, dizziness, or weakness. PSYCHIATRIC: Denies anxiety or depression. [facility] Past Medical History Medical History Adenomatous colon polyp Esophageal stricture Esophagitis Essential hypertension Gastroesophageal reflux disease Hiatal hernia Hypertriglyceridemia Intermittent low back pain Kidney stones Osteopenia Sciatica Vitamin D deficiency Surgical History Surgical History History of cholecystectomy (1989) History of colonoscopy with polypectomy History of esophageal dilatation (1990) History of hysterectomy (1989) History of partial thyroidectomy (Unknown) Left. Family History Family History Father Family history of cardiovascular disease Mother Carcinoma of colon Sibling Heart attack Social History Social History Social History: Surrogate decision maker: Morris Min, spouse. Code status: Full code. Smoking status: Never smoker Second hand tobacco smoke exposure: No Alcohol intake: never Substance use: never Substance use type: does not use Do You Feel Safe in your Home?: Yes Lack of Transportation: No Lack of Food: Never True Current Housing: I Have Housing Concerned About Future Housing: No Difficulty Paying Gas/Electric Bills: No Difficulty Paying for Meds: No Currently Unemployed: No Education: High School Diploma/GED Difficulty w/ Childcare or Family Care: No Living arrangements: with family Additional living arrangements comments: The patient lives in [place] with her . Occupation/Education: retired Additional occupation/education comments: Retired. Spiritual care concerns: No Agree to
[2024-03-04 10:04] LABS: Basophils Percent Auto 0.4 % (0.2-1.2); Eosinophils Absolute Auto 0.1 K/mm3 (0-0.3); Eosinophils Percent Auto 1.2 % (0-4.4); Hematocrit 41.3 % (37.0-47.0); Hemoglobin 13.9 g/dL (12.0-15.0); Immature Granulocyte Absolute 0.02 K/mm3 (0.00-0.031); Immature Granulocyte Percent A 0.3 % (0-0.5); Lymphocytes Absolute Auto 2.09 K/mm3 (0.9-3.2); Lymphocytes Percent Auto 27.8 % (18.3-44.2); Mean Corpuscular HGB Conc 33.7 g/dl (32-36); Mean Corpuscular Volume 94.9 fl (80-100); Monocytes Absolute Auto 1.2 K/mm3 (0.1-0.6); Monocytes Percent Auto 15.7 % (2.6-8.5); Neutrophils Absolute Auto 4.1 K/mm3 (1.3-6.7); Neutrophils Percent Auto 54.6 % (45.5-73.1); Platelet Count Result 277 k/mm3 (150-375); Red Blood Count 4.35 M/mm3 (4.2-5.4); Red Cell Distribution Width 13.1 % (11.5-14.5); White Blood Count 7.5 K/mm3 (4.5-10.0)
[2024-03-04 10:06] LABS: Appearance Urine Sl Cloudy (Clear); Blood Urine 1+ (Negative); Color Urine Yellow (Yellow); Glucose Urine UA Negative (Negative); Ketones Urine Negative (Negative); Nitrate Urine Negative (Negative); Protein Urine 1+ (Negative)
[2024-03-04] MEDS: SODIUM CHLORIDE 0.9% IV 500 ML 999 ML IV CONT (10:06)
[2024-03-04] MEDS: ONDANSETRON INJ 4 MG/2 ML VIAL IV PUSH (10:06)
[2024-03-04] MEDS: FAMOTIDINE 20 MG/2 ML VIAL IV PUSH (10:06)
[2024-03-04] MEDS: KETOROLAC 30 MG/ML VIAL (*BKC) IV PUSH (10:06)
[2024-03-04 10:07] LABS: Add Urine Microscopic? YES; Bilirubin Urine 1+ (Negative); Leukocyte Esterase Ur 1+ LEU/UL (Negative); Urobilinogen Urine 0.2 mg/dL (0.2-1.0)
[2024-03-04 10:12] LABS: Alanine Aminotransferase 9 U/L (6-35); Albumin Level 4.2 g/dL (3.5-5.1); Alkaline Phosphatase 75 U/L (38-126); Anion Gap 7 mmol/L (4-12); Aspartate Amino Transferase 19 U/L (14-36); Bilirubin,Total 0.6 mg/dL (0.2-1.3); Blood Urea Nitrogen 6 mg/dL (7-17); Calcium 10.4 mg/dL (8.4-10.2); Carbon Dioxide 23 mmol/L (22-30); Chloride 105 mmol/L (98-107); Estimated CRCL calculation 47 ml/min; Estimated Glomerular Filt Rate > 60; Glucose 107 mg/dL (65-110); Lipase 160 U/L (23-300); Potassium 3.6 mmol/L (3.4-5.0); Sodium 135 mmol/L (137-145)
[2024-03-04 10:19] LABS: Mucus Urine Few /lpf; Squamous Epithelial Cell Urine Few /hpf (Few); WBC Clumps Urine Present /hpf; WBC Urine 21-50 /hpf (0-3)
[2024-03-04 10:35] LABS: Lactic Acid Reflex 1.1 mmol/L (0.7-2.0)
== END 2024-03-04 14:24 | disposition home or self-care (01) ==
PROVIDERS: Emergency Provider Nurse Practitioner Family; PCP Family Medicine
DX: K57.32 Diverticulitis of large intestine without perforation or abscess without bleeding (principal); K44.9 Diaphragmatic hernia without obstruction or gangrene; I10 Essential (primary) hypertension; E78.1 Pure hyperglyceridemia; E55.9 Vitamin D deficiency, unspecified; E89.0 Postprocedural hypothyroidism; K21.9 Gastro-esophageal reflux disease without esophagitis; M85.80 Other specified disorders of bone density and structure, unspecified site; Z87.442 Personal history of urinary calculi; Z86.010 Personal history of colon polyps; Z90.49 Acquired absence of other specified parts of digestive tract; Z90.710 Acquired absence of both cervix and uterus
CPT/HCPCS: 36415; 74177; 80053; 81001; 83605; 83690; 85025; 87086; 87088; 96361; 96374; 96375; 99284; J1885; J2405; J7040; Q9967

== ENCOUNTER 2024-03-24 10:23 | Outpatient (CLI) | payer MEDICARE, SELFPAY ==
[2024-03-24 12:27] LABS: Toxigenic C. Diff NEGATIVE (NEGATIVE)
== END 2024-03-24 10:24 | disposition home or self-care (01) ==
LOC: ANHLAB 10:26
PROVIDERS: PCP Family Medicine; Visit Provider Student in an Organized Health Care Education/Training Program
DX: R19.7 Diarrhea, unspecified (principal)
CPT/HCPCS: 87493

== ENCOUNTER 2024-06-08 02:27 | Day surgery (SDC) | payer MEDICARE, SELFPAY ==
[2024-05-19 13:42] VITALS: BMI 23.4
[2024-06-08 11:43] VITALS: BP 205/95; PULSE 63; RESP 19; TEMP 36.2; O2SAT 99
[2024-06-08] MEDS: LACTATED RINGERS 1,000 ML 150 ML IV CONT (12:01)
--- NOTE | 2024-06-08 12:13 | WPDANESEPPF ---
Anes - Initial Pre Proc Eval Procedure: Operation Date: 06/08/24 13:00 Proposed Procedures p Esophagogastroduodenoscopy & Colonoscopy - Kwame Hackett MD Date/Time: 06/08/24 12:13 Surgeon: Kwame Hackett MD Pre Op Diagnosis: Diverticulitis of intestine part unspecified witho Patient Data Age: 83 Gender: F Height: 1.63 m Weight: 62.3 kg Last Vital Signs Temp 97.2 F L 06/08/24 11:43 Pulse 63 06/08/24 11:43 Resp 19 06/08/24 11:43 BP 205/95 H 06/08/24 11:43 Pulse Ox 99 06/08/24 11:43 O2 Del Method Room Air 06/08/24 11:43 Allergies Allergy/AdvReac Type Severity Reaction Status Date / Time Antihistamines - Alkylamine Allergy Unknown Unknown Verified 06/08/24 11:41 Sulfa (Sulfonamide Allergy Unknown Unknown Verified 06/08/24 11:41 Antibiotics) Home Medications Medication Instructions Recorded Confirmed Type multivitamin 1 tablet PO DAILY 08/07/21 05/19/24 History cholecalciferol (vitamin D3) 25 25 mcg PO DAILY #30 caps 05/08/22 05/19/24 Rx mcg (1,000 unit) capsule esomeprazole magnesium 40 mg 40 mg PO DAILY 01/02/24 05/19/24 History capsule,delayed release (Nexium) metoprolol tartrate 50 mg tablet 50 mg PO Q12H 01/02/24 05/19/24 History Saccharomyces boulardii 250 mg 250 mg PO Q8HR #30 caps 01/05/24 05/19/24 Rx capsule (Florastor) trimethoprim 100 mg tablet 100 mg PO HS 05/19/24 05/19/24 History Patient hx anesthesia problems: none Family hx anesthesia problems: none Results Review: All pre-operative results and documents have been reviewed as part of the pre-operative evaluation. [facility] Past Medical History Medical History Adenomatous colon polyp Esophageal stricture Esophagitis Essential hypertension Gastroesophageal reflux disease Hiatal hernia Hypertriglyceridemia Intermittent low back pain Kidney stones Osteopenia Sciatica Vitamin D deficiency Surgical History Surgical History History of cholecystectomy (1989) History of colonoscopy with polypectomy History of esophageal dilatation (1990) History of hysterectomy (1989) History of partial thyroidectomy (Unknown) Left. Family History Family History Father Family history of cardiovascular disease Mother Carcinoma of colon Sibling Heart attack Social History Social History Social History: Surrogate decision maker: Morris Min, spouse. Code status: Full code. Smoking status: Never smoker Second hand tobacco smoke exposure: No Alcohol intake: never Substance use: never Substance use type: does not use Do You Feel Safe in your Home?: Yes Lack of Transportation: No Lack of Food: Never True Current Housing: I Have Housing Concerned About Future Housing: No Difficulty Paying Gas/Electric Bills: No Difficulty Paying for Meds: No Currently Unemployed: No Education: High School Diploma/GED Difficulty w/ Childcare or Family Care: No Living arrangements: other Additional living arrangements comments: with sp Occupation/Education: retired Additional occupation/education comments: Retired. Spiritual care concerns: No Agree to blood products: Yes Anes - Eval Final PreProcedure Day of Procedure 06/08/24 12:13 Patient weight: normal Heart: regular rate and rhythm Lungs: clear to auscultation Airway: Mallampati scale class II and special considerations (Missing several upper teeth, post aspect, none loose. ) Neurological: alert and oriented Last oral intake: >/= 8 hours ASA classification: II Emergent: no Anesthetic plan: proceed Anesthesia type and monitoring: general GIVS and standard monitoring Results Review: All pre-operative results and documents have been reviewed as part o
--- NOTE | 2024-06-08 12:24 | PM.HPGS ---
History of Present Illness History of Present Illness Consent: Risks, benefits, and alternatives have been discussed and questions answered. Patient agrees to proceed with procedure. Chief complaint: Diverticulitis of intestine part unspecified witho Narrative: Shonda Min is a 83 year old female here for egd and colonoscopy, she has a known large hiatal hernia but controlled with nexium, had EGD but several years ago, also earlier this year with diverticulitis treated with iv abx, she has h/o colon cancer in mother and brother, last colonoscopy 2020. Review of Systems Review of Systems: All systems reviewed & are unremarkable except as noted in HPI and below PMFSH Past Medical History Medical History Adenomatous colon polyp Esophageal stricture Esophagitis Essential hypertension Gastroesophageal reflux disease Hiatal hernia Hypertriglyceridemia Intermittent low back pain Kidney stones Osteopenia Sciatica Vitamin D deficiency Surgical History Surgical History History of cholecystectomy (1989) History of colonoscopy with polypectomy History of esophageal dilatation (1990) History of hysterectomy (1989) History of partial thyroidectomy (Unknown) Left. Family History Family History Father Family history of cardiovascular disease Mother Carcinoma of colon Sibling Heart attack Social History Social History Social History: Surrogate decision maker: Morris Min, spouse. Code status: Full code. Smoking status: Never smoker Second hand tobacco smoke exposure: No Alcohol intake: never Substance use: never Substance use type: does not use Do You Feel Safe in your Home?: Yes Lack of Transportation: No Lack of Food: Never True Current Housing: I Have Housing Concerned About Future Housing: No Difficulty Paying Gas/Electric Bills: No Difficulty Paying for Meds: No Currently Unemployed: No Education: High School Diploma/GED Difficulty w/ Childcare or Family Care: No Living arrangements: other Additional living arrangements comments: with sp Occupation/Education: retired Additional occupation/education comments: Retired. Spiritual care concerns: No Agree to blood products: Yes Meds Home Medications and Allergies Home Medications Medication Instructions Recorded Confirmed Type multivitamin 1 tablet PO DAILY 08/07/21 05/19/24 History cholecalciferol (vitamin D3) 25 25 mcg PO DAILY #30 caps 05/08/22 05/19/24 Rx mcg (1,000 unit) capsule esomeprazole magnesium 40 mg 40 mg PO DAILY 01/02/24 05/19/24 History capsule,delayed release (Nexium) metoprolol tartrate 50 mg tablet 50 mg PO Q12H 01/02/24 05/19/24 History Saccharomyces boulardii 250 mg 250 mg PO Q8HR #30 caps 01/05/24 05/19/24 Rx capsule (Florastor) trimethoprim 100 mg tablet 100 mg PO HS 05/19/24 05/19/24 History Allergies Allergy/AdvReac Type Severity Reaction Status Date / Time Antihistamines - Alkylamine Allergy Unknown Unknown Verified 06/08/24 11:41 Sulfa (Sulfonamide Allergy Unknown Unknown Verified 06/08/24 11:41 Antibiotics) Vital Signs Vital Signs - 24 hr 06/08/24 11:43 Temperature 97.2 F L Pulse Rate 63 Respiratory Rate 19 Blood Pressure 205/95 H Pulse Oximetry 99 Oxygen Delivery Room Air Exam Const: General: comfortable and no acute distress HENMT: Face/Nose/Sinus: Normal nares present Eyes: General: appearance normal, both eyes and all related structures Neck: Neck: no JVD Resp: Auscultation: clear to auscultation bilaterally Cardio: Rate: regular rate Rhythm: regular rhythm GI: Inspection: non-distended GI Palp: Yes Soft to palpation Skin: General skin exam: normal color Neuro: General: gait no
--- NOTE | 2024-06-08 12:36 | SUR.OPER ---
EGD start time 1230, EGD end time 1236. Colonoscopy start 1242.
[2024-06-08 12:57] VITALS: BP 158/83; PULSE 66; RESP 19; O2SAT 100
[2024-06-08 13:07] VITALS: BP 151/83; PULSE 67; RESP 20; O2SAT 98
[2024-06-08 13:17] VITALS: BP 176/103; PULSE 68; RESP 20; O2SAT 100
== END 2024-06-08 13:35 | disposition home or self-care (01) ==
PROVIDERS: PCP Family Medicine; Visit Provider Internal Medicine Gastroenterology
PROC: 0DJ08ZZ Inspection of Upper Intestinal Tract, Via Natural or Artificial Opening Endoscopic (ICD-10-PCS; CPT 43235; principal; 2024-06-08 13:00)
DX: K44.9 Diaphragmatic hernia without obstruction or gangrene (principal); K21.9 Gastro-esophageal reflux disease without esophagitis; I10 Essential (primary) hypertension; E78.1 Pure hyperglyceridemia; E55.9 Vitamin D deficiency, unspecified; Z87.19 Personal history of other diseases of the digestive system
CPT/HCPCS: 43235; J1596; J2371; J2704; J7120

== ENCOUNTER 2024-07-19 18:41 | Emergency (ER) | payer MEDICARE, SELFPAY ==
--- NOTE | ~2024-07-19 | CT_ITS ---
EXAMINATION: CTA abdomen pelvis DATE: 07/19/2024 20:20 INDICATION: Abdominal and back pain TECHNIQUE: Computed tomographic angiography (CTA) of the abdomen and pelvis was performed with 100 mL Omnipaque-350 intravenous contrast. Additional 3D reconstructions utilizing rotating maximum intensi ty projection (MIP) were performed. Automated exposure control and iterative reconstruction technique were employed. The dose-length product was 384.61 mGy-cm. COMPARISON: 03/14/2024 and 05/03/2021 FINDINGS: There is compressive atelectasis the medial aspect of the bilateral lower lobes along side a large sl iding-type hiatal hernia. Heart size is normal. No pericardial or pleural effusion. A few hepatic cys ts the largest measuring up to 3.7 cm. Chronic 1.2 cm avidly enhancing hemangioma in segment 6 of the liver which can be seen on study dated 05/03/2021. Multiple splenic calcifications consistent with old granulomatous disease. Pancreas and bilateral adrenal glands are normal. There are bilateral renal c ysts the largest on the left measuring 2.5 cm. There is moderate colonic diverticulosis with a sigmoi d predominance and without adjacent inflammatory change to suggest diverticulitis. Small bowel and ap pendix are normal. Bladder is normal. The uterus is not identified and has likely been surgically res ected. No free intraperitoneal gas or fluid. No pathologically enlarged abdominal or pelvic lymphaden opathy. There is scattered nonhemodynamically second calcified atherosclerosis of the aorta and many of the other arteries. Visualized abdominal and lower thoracic aorta is normal in caliber with no dis section. Mild thoracolumbar dextrocurvature with moderate spondylosis. T10 hemangioma. IMPRESSION: 1. Large sliding-type hiatal hernia. 2. Prominent sigmoid diverticulosis without diverticulitis Reviewed, dictated and finalized at location A.
[2024-07-19 18:45] VITALS: BP 216/107; PULSE 89; RESP 13; TEMP 36.7; O2SAT 99
[2024-07-19 18:55] VITALS: BP 192/108; PULSE 88; RESP 20; TEMP 36.8; O2SAT 100
[2024-07-19 19:01] VITALS: BP 191/105; PULSE 86; RESP 20; O2SAT 99
[2024-07-19 19:07] LABS: Basophils Percent Auto 0.2 % (0.2-1.2); Eosinophils Absolute Auto 0.1 K/mm3 (0-0.3); Eosinophils Percent Auto 0.5 % (0-4.4); Hematocrit 43.7 % (37.0-47.0); Hemoglobin 14.8 g/dL (12.0-15.0); Immature Granulocyte Absolute 0.04 K/mm3 (0.00-0.031); Immature Granulocyte Percent A 0.3 % (0-0.5); Lymphocytes Absolute Auto 3.58 K/mm3 (0.9-3.2); Lymphocytes Percent Auto 30.1 % (18.3-44.2); Mean Corpuscular HGB Conc 33.9 g/dl (32-36); Mean Corpuscular Hemoglobin 32.5 pg (26-34); Mean Platelet Volume 8.9 fl (7.4-10.4); Monocytes Absolute Auto 0.5 K/mm3 (0.1-0.6); Monocytes Percent Auto 4.2 % (2.6-8.5); Neutrophils Absolute Auto 7.7 K/mm3 (1.3-6.7); Neutrophils Percent Auto 64.7 % (45.5-73.1); Platelet Count Result 260 k/mm3 (150-375); Red Blood Count 4.55 M/mm3 (4.2-5.4); White Blood Count 11.9 K/mm3 (4.5-10.0)
[2024-07-19] MEDS: PANTOPRAZOLE SODIUM IV 40 MG VIAL IV PUSH (19:26)
[2024-07-19] MEDS: ONDANSETRON INJ 4 MG/2 ML VIAL IV PUSH (19:26)
[2024-07-19 19:33] LABS: Alanine Aminotransferase 9 U/L (6-35); Albumin Level 4.5 g/dL (3.5-5.1); Alkaline Phosphatase 111 U/L (38-126); Anion Gap 11 mmol/L (4-12); Aspartate Amino Transferase 18 U/L (14-36); Bilirubin,Total 0.3 mg/dL (0.2-1.3); Blood Urea Nitrogen 12 mg/dL (7-17); Calcium 10.6 mg/dL (8.4-10.2); Carbon Dioxide 25 mmol/L (22-30); Chloride 97 mmol/L (98-107); Estimated CRCL calculation 41 ml/min; Estimated Glomerular Filt Rate > 60; Glucose 115 mg/dL (65-110); Lipase 118 U/L (23-300); Potassium 3.6 mmol/L (3.4-5.0); Sodium 133 mmol/L (137-145)
[2024-07-19 19:39] LABS: Magnesium 1.9 mg/dL (1.6-2.3)
[2024-07-19 19:50] LABS: Lactic Acid Reflex 1.4 mmol/L (0.7-2.0)
[2024-07-19 19:51] VITALS: BP 188/97; PULSE 91; RESP 16; O2SAT 100
--- NOTE | 2024-07-19 19:54 | ED.ABDPAIN ---
HPI - Abdominal Pain General Chief Complaint: Abdominal Pain Stated Complaint: abd pain and nausea Time Seen by Provider: 07/19/24 19:10 History of Present Illness HPI narrative: Patient is an 84-year-old female who presents to the emergency department this evening complaining of generalized abdominal pain, left flank pain and nausea. Patient states that symptoms started approximately 2 hours ago prior to arrival. Patient was eating chicken from [facility] when the abdominal pain started. Patient admits that she does have a history of chronic back pain but states that this pain is localized to the left flank region. Patient does have a history of hypertension and states that she takes her blood pressure medications regularly. She is currently denying any chest pain or shortness of breath, denies any vomiting episodes, and denies any fevers or chills. No additional symptoms or concerns at this time. Related Data Home Medications Medication Instructions Recorded Confirmed multivitamin 1 tablet PO DAILY 08/07/21 07/06/24 esomeprazole magnesium 40 mg 40 mg PO DAILY 01/02/24 07/06/24 capsule,delayed release (Nexium) trimethoprim 100 mg tablet 100 mg PO DAILY 07/06/24 07/06/24 Allergies Allergy/AdvReac Type Severity Reaction Status Date / Time Antihistamines - Alkylamine Allergy Unknown Unknown Verified 07/19/24 18:42 Sulfa (Sulfonamide Allergy Unknown Unknown Verified 07/19/24 18:42 Antibiotics) Review of Systems Review of Systems: All systems are reviewed and are negative unless stated otherwise in the HPI. [facility] Past Medical History Medical History Adenomatous colon polyp Esophageal stricture Esophagitis Essential hypertension Gastroesophageal reflux disease Hiatal hernia Hypertriglyceridemia Intermittent low back pain Kidney stones Osteopenia Sciatica Vitamin D deficiency Surgical History Surgical History History of cholecystectomy (1989) History of colonoscopy with polypectomy History of esophageal dilatation (1990) History of hysterectomy (1989) History of partial thyroidectomy (Unknown) Left. Family History Family History Father Family history of cardiovascular disease Mother Carcinoma of colon Sibling Heart attack Social History Social History Social History: Surrogate decision maker: Morris Min, spouse. Code status: Full code. Smoking status: Never smoker Second hand tobacco smoke exposure: No Alcohol intake: never Substance use: never Substance use type: does not use Do You Feel Safe in your Home?: Yes Lack of Transportation: No Lack of Food: Never True Current Housing: I Have Housing Concerned About Future Housing: No Difficulty Paying Gas/Electric Bills: No Difficulty Paying for Meds: No Currently Unemployed: No Education: High School Diploma/GED Difficulty w/ Childcare or Family Care: No Living arrangements: with family Additional living arrangements comments: The patient lives in [place] with her . Occupation/Education: retired Additional occupation/education comments: Retired. Spiritual care concerns: No Agree to blood products: Yes Exam Narrative: General: Alert, awake, afebrile, in no acute distress. HEENT: PERRL, no rhinorrhea, no post nasal drip, oropharynx clear. Cardiovascular: Regular rate and rhythm, no murmurs, rubs or gallops, no peripheral edema. Respiratory: Clear to auscultation bilaterally, no tachypnea, no wheezing, no rhonchi, no rubs, no respiratory distress. Abdomen: Soft, nontender in all 4 quadrants, nondistended, no rebound, no guarding, no peritoneal signs, no CVA tenderness. Musculoskeletal: No joint swelling or deformity, normal muscle tone. Skin: No rashes or petechia, no
--- NOTE | 2024-07-19 19:55 | ECG_ITS ---
Test Date: 2024-07-19 20:30:04 Measurements Intervals [place] Rate: 89 P: 39 [place]: 239 QRS: -23 QRSD: 89 T: 6 QT: 281 QTc: 344 Interpretive Statements SINUS RHYTHM WITH FIRST DEGREE AV BLOCK LEFT VENTRICULAR HYPERTROPHY AND ST-T CHANGE CANNOT R/O SEPTAL INFARCT, AGE INDETERMINATE MINIMAL Q WAVES- HIGH LATERAL LEADS BASELINE ARTIFACT- I, II, III, AVR, AVL, AVF ABNORMAL ECG No previous ECG available for comparison Electronically Signed On 07-20-2024 06:22:58 CDT by Cain Pederson D.O.
[2024-07-19 20:00] LABS: Add Urine Microscopic? YES; Appearance Urine Cloudy (Clear); Bacteria Urine 4+ /hpf; Bilirubin Urine Negative (Negative); Blood Urine Non-Hemolyzed Trace (Negative); Color Urine Yellow (Yellow); Glucose Urine UA Negative (Negative); Ketones Urine Negative (Negative); Leukocyte Esterase Ur 2+ LEU/UL (Negative); Nitrate Urine Negative (Negative); Non Pathogenic Casts 0-2; Protein Urine 1+ mg/dL (Negative); Specific Grav Ur 1.015 (1.001-1.035); Squamous Epithelial Cell Urine None Seen /hpf (Few); Urobilinogen Urine 0.2 mg/dL (<2.0); WBC Urine >100 /hpf (0-3); pH Urine 5.5 (5.0-9.0)
[2024-07-19] MEDS: KETOROLAC 15 MG/ML VIAL (*BKC) IV PUSH (21:26)
[2024-07-19] MEDS: LIDOCAINE 5% PATCH 1 PATCH (21:51)
== END 2024-07-19 21:52 | disposition home or self-care (01) ==
PROVIDERS: Preventive Medicine Aerospace Medicine; Emergency Provider Emergency Medicine; PCP Family Medicine
DX: N39.0 Urinary tract infection, site not specified (principal); R10.32 Left lower quadrant pain; I10 Essential (primary) hypertension; E78.1 Pure hyperglyceridemia; K21.9 Gastro-esophageal reflux disease without esophagitis; E55.9 Vitamin D deficiency, unspecified
CPT/HCPCS: 36415; 74174; 80053; 81001; 83605; 83690; 83735; 85025; 87077; 87086; 87088; 87186; 93005; 96374; 96375; 99284; A9270; J1885; J2405; J2470; Q9967

== ENCOUNTER 2024-07-31 18:31 | Emergency (ER) | payer MEDICARE, SELFPAY ==
--- NOTE | ~2024-07-31 | CT_ITS ---
EXAMINATION: CT abdomen pelvis w con DATE: 07/31/2024 19:45 INDICATION: RLQ and suprapubic abdominal pain TECHNIQUE: Computed tomography (CT) of the abdomen and pelvis was performed with 100 mL Omnipaque-350 intravenous contrast. Automated exposure control and iterative reconstruction technique were employe d. The dose-length product was 383.79 mGy-cm. COMPARISON: 07/19/2024. FINDINGS: Lower thorax: Large hiatal hernia containing the majority of the stomach. Liver: Multiple simple liver cysts. Multiple subcentimeter hypodensities, too small to characterize b ut also likely represent cysts. Right lobe hemangioma. Biliary/Gallbladder: Gallbladder is absent. No bile duct dilation. Pancreas: Mild atrophy. Spleen: Normal. Adrenals:No mass. Kidneys: No suspicious mass, obstructing stone, or hydronephrosis. Multiple simple bilateral cysts. A dditional hypodensities, too small to characterize but likely represent cysts. GI tract: No small or large bowel dilation. Mild diffuse colonic wall edema and rectal wall edema. Hy peremia of the colonic mucosa. Mostly fluid-filled colon. Normal appendix. Diverticulosis without div erticulitis. Mesentery/Peritoneum: No ascites, mass, or free air. Retroperitoneum: No mass. Atherosclerotic abdominal aortic and/or arterial calcifications. Pelvis: Normal urinary bladder. Absent uterus. Bilateral ovaries not confidently visualized.. Soft Tissues: Soft tissues and body wall unremarkable. Bones: No acute osseous finding. IMPRESSION: Colonic and rectal wall edema with mucosal hyperemia, may represent a component of colitis/proctitis in the appropriate clinical context. Fluid-filled colon as can be seen with diarrheal illness. Reviewed, dictated and finalized at location K.
[2024-07-31 18:28] VITALS: BP 151/73; PULSE 94; RESP 17; TEMP 36.8; O2SAT 98
--- NOTE | 2024-07-31 18:40 | ED.GENADULT ---
HPI - General Adult General Chief complaint: Unspecified Stated complaint: dehydration after being outside for hours History of Present Illness HPI narrative: 84-year-old female with history of hyperparathyroidism, hiatal hernia, GERD, IBS, hypertension, hypertriglyceridemia presents to the emergency department via EMS from home for abdominal pain. Patient states today she was out in the heat at a [employer] fair with her daughter granddaughter which she began having to go to the bathroom several times. States she was having several episodes of diarrhea, however each time she felt like she was not emptying completely. She then began developing lower abdominal pain. States she went home, drink fluids and took Tylenol and took a nap. States she woke up in her pain had not improved so she took Dulcolax which worsened her pain. She contacted EMS and was presented to the ED for further evaluation. She denies nausea or vomiting, fever, dysuria or hematuria. She endorses a history of hysterectomy and cholecystectomy in 1990. She states she had a colonoscopy and EGD approximately 2 months ago that showed a hiatal hernia and colovesical fistula. States she has followed with GI in [place] and with Dr. Hackett. patient was started on a L of normal saline and given 4 mg of Zofran in the ambulance with improvement. Related Data Home Medications Medication Instructions Recorded Confirmed multivitamin 1 tablet PO DAILY 08/07/21 07/06/24 esomeprazole magnesium 40 mg 40 mg PO DAILY 01/02/24 07/06/24 capsule,delayed release (Nexium) trimethoprim 100 mg tablet 100 mg PO DAILY 07/06/24 07/06/24 Allergies Allergy/AdvReac Type Severity Reaction Status Date / Time Antihistamines - Alkylamine Allergy Unknown Unknown Verified 07/19/24 18:42 Sulfa (Sulfonamide Allergy Unknown Unknown Verified 07/19/24 18:42 Antibiotics) Review of Systems Review of Systems: All systems reviewed & are unremarkable except as noted in HPI and below PMFSH Past Medical History Medical History Adenomatous colon polyp Esophageal stricture Esophagitis Essential hypertension Gastroesophageal reflux disease Hiatal hernia Hypertriglyceridemia Intermittent low back pain Kidney stones Osteopenia Sciatica Vitamin D deficiency Surgical History Surgical History History of cholecystectomy (1989) History of colonoscopy with polypectomy History of esophageal dilatation (1990) History of hysterectomy (1989) History of partial thyroidectomy (Unknown) Left. Family History Family History Father Family history of cardiovascular disease Mother Carcinoma of colon Sibling Heart attack Social History Social History Social History: Surrogate decision maker: Morris Min, spouse. Code status: Full code. Smoking status: Never smoker Second hand tobacco smoke exposure: No Alcohol intake: never Substance use: never Substance use type: does not use Do You Feel Safe in your Home?: Yes Lack of Transportation: No Lack of Food: Never True Current Housing: I Have Housing Concerned About Future Housing: No Difficulty Paying Gas/Electric Bills: No Difficulty Paying for Meds: No Currently Unemployed: No Education: High School Diploma/GED Difficulty w/ Childcare or Family Care: No Living arrangements: with family Additional living arrangements comments: The patient lives in [place] with her . Occupation/Education: retired Additional occupation/education comments: Retired. Spiritual care concerns: No Agree to blood products: Yes Exam Narrative: GENERAL: Well-appearing, well-nourished, and in no acute distress. HEAD: Normocephalic, atraumatic. EYES: PERRLA and EOMI. ENT: Eladio
[2024-07-31 19:16] LABS: Basophils Percent Auto 0.1 % (0.2-1.2); Hematocrit 40.5 % (37.0-47.0); Hemoglobin 13.9 g/dL (12.0-15.0); Immature Granulocyte Absolute 0.13 K/mm3 (0.00-0.031); Immature Granulocyte Percent A 0.5 % (0-0.5); Lymphocytes Absolute Auto 1.26 K/mm3 (0.9-3.2); Lymphocytes Percent Auto 5.2 % (18.3-44.2); Mean Corpuscular HGB Conc 34.3 g/dl (32-36); Mean Corpuscular Hemoglobin 33.1 pg (26-34); Mean Corpuscular Volume 96.4 fl (80-100); Monocytes Absolute Auto 0.8 K/mm3 (0.1-0.6); Monocytes Percent Auto 3.4 % (2.6-8.5); Neutrophils Absolute Auto 21.9 K/mm3 (1.3-6.7); Neutrophils Percent Auto 90.8 % (45.5-73.1); Platelet Count Result 298 k/mm3 (150-375); Red Cell Distribution Width 12.3 % (11.5-14.5); White Blood Count 24.2 K/mm3 (4.5-10.0)
[2024-07-31 19:28] LABS: Alanine Aminotransferase 10 U/L (6-35); Albumin Level 4.3 g/dL (3.5-5.1); Alkaline Phosphatase 81 U/L (38-126); Anion Gap 9 mmol/L (4-12); Aspartate Amino Transferase 18 U/L (14-36); Bilirubin,Total 0.7 mg/dL (0.2-1.3); Blood Urea Nitrogen 13 mg/dL (7-17); Calcium 10.1 mg/dL (8.4-10.2); Carbon Dioxide 23 mmol/L (22-30); Chloride 101 mmol/L (98-107); Estimated CRCL calculation 41 ml/min; Estimated Glomerular Filt Rate > 60; Glucose 149 mg/dL (65-110); Lipase 60 U/L (23-300); Potassium 3.9 mmol/L (3.4-5.0); Sodium 133 mmol/L (137-145)
[2024-07-31 19:52] LABS: Influenza A QL RT-PCR Negative (Negative); Influenza B QL RT-PCR Negative (Negative); RSV RNA, RT-PCR Negative (Negative); SARS-CoV-2 RNA PCR Negative (Negative)
[2024-07-31 19:59] VITALS: BP 141/82; PULSE 95; RESP 18; O2SAT 97
[2024-07-31 20:01] VITALS: BP 148/79; O2SAT 97
[2024-07-31 20:39] LABS: Add Urine Microscopic? YES; Appearance Urine Clear (Clear); Bacteria Urine None Seen /hpf; Bilirubin Urine Negative (Negative); Blood Urine Negative (Negative); Color Urine Yellow (Yellow); Glucose Urine UA Negative (Negative); Ketones Urine Negative (Negative); Leukocyte Esterase Ur 1+ LEU/UL (Negative); Nitrate Urine Negative (Negative); Non Pathogenic Casts 0-2; Protein Urine Trace mg/dL (Negative); RBC Urine 0-2 /hpf (0-2); Specific Grav Ur 1.027 (1.001-1.035); Squamous Epithelial Cell Urine None Seen /hpf (Few); Urobilinogen Urine 0.2 mg/dL (<2.0)
[2024-07-31] MEDS: CIPROFLOXACIN 500 MG TAB PO (21:31)
[2024-07-31] MEDS: metroNIDAZOLE 500 MG TABLET PO (21:31)
== END 2024-07-31 22:40 | disposition home or self-care (01) ==
PROVIDERS: Emergency Provider Physician Assistant; PCP Family Medicine
DX: K52.9 Noninfective gastroenteritis and colitis, unspecified (principal); Z20.822 Contact with and (suspected) exposure to COVID-19; I10 Essential (primary) hypertension; E78.1 Pure hyperglyceridemia; E55.9 Vitamin D deficiency, unspecified; E21.3 Hyperparathyroidism, unspecified; K58.9 Irritable bowel syndrome, unspecified; K44.9 Diaphragmatic hernia without obstruction or gangrene; K21.00 Gastro-esophageal reflux disease with esophagitis, without bleeding; M85.80 Other specified disorders of bone density and structure, unspecified site; Z87.442 Personal history of urinary calculi; Z86.0101 Personal history of adenomatous and serrated colon polyps; Z90.49 Acquired absence of other specified parts of digestive tract; Z90.710 Acquired absence of both cervix and uterus
CPT/HCPCS: 36415; 74177; 80053; 81001; 83690; 85025; 87086; 87637; 99284; A9270; Q9967

== ENCOUNTER 2024-08-08 12:05 | Emergency (ER) | payer MEDICARE, SELFPAY ==
[2024-08-08 12:17] VITALS: BP 186/89; PULSE 73; RESP 18; O2SAT 97
--- NOTE | 2024-08-08 12:32 | ED.GIBLEED ---
HPI - GI Bleed General Chief complaint: GI Bleed Stated complaint: black stool Time Seen by Provider: 08/08/24 12:32 Source: patient History of Present Illness HPI Narrative: 84 YEARS OLD WHITE FEMALE CAME TO THE ED BY PRIVATE CAR COMPLAINING OF DIARRHEA UP TO 8 TIMES A DAY STARTED 1 WEEK AGO GRADUALLY GETTING BETTER, LATELY UP TO 3 TIMES A DAY, HAS BEEN ON IMODIUM, PATIENT NOTICED THAT HER STOOL IS BLACK DISCOLORED. CONCERN ABOUT GI BLEED. SHE DENIES OTHER SYMPTOMS PATIENT IS STATUS POST MOST OF THE 84 WEEKS AGO, PATIENT IS SCHEDULED TO SEE DR. DEWEY NEXT WEEK AND SCHEDULE SEE HER FAMILY PHYSICIAN TOMORROW Related Data Home Medications Medication Instructions Recorded Confirmed multivitamin 1 tablet PO DAILY 08/07/21 08/03/24 esomeprazole magnesium 40 mg 40 mg PO DAILY 01/02/24 08/03/24 capsule,delayed release (Nexium) trimethoprim 100 mg tablet 100 mg PO DAILY 07/06/24 08/03/24 Allergies Allergy/AdvReac Type Severity Reaction Status Date / Time Antihistamines - Alkylamine Allergy Unknown Unknown Verified 07/19/24 18:42 Sulfa (Sulfonamide Allergy Unknown Unknown Verified 07/19/24 18:42 Antibiotics) Review of Systems Review of Systems: All systems reviewed & are unremarkable except as noted in HPI and below PMFSH Past Medical History Medical History Adenomatous colon polyp Esophageal stricture Esophagitis Essential hypertension Gastroesophageal reflux disease Hiatal hernia Hypertriglyceridemia Intermittent low back pain Kidney stones Osteopenia Sciatica Vitamin D deficiency Surgical History Surgical History History of cholecystectomy (1989) History of colonoscopy with polypectomy History of esophageal dilatation (1990) History of hysterectomy (1989) History of partial thyroidectomy (Unknown) Left. Family History Family History Father Family history of cardiovascular disease Mother Carcinoma of colon Sibling Heart attack Social History Social History Social History: Surrogate decision maker: Morris Min, spouse. Code status: Full code. Smoking status: Never smoker Second hand tobacco smoke exposure: No Alcohol intake: never Substance use: never Substance use type: does not use Do You Feel Safe in your Home?: Yes Lack of Transportation: No Lack of Food: Never True Current Housing: I Have Housing Concerned About Future Housing: No Difficulty Paying Gas/Electric Bills: No Difficulty Paying for Meds: No Currently Unemployed: No Education: High School Diploma/GED Difficulty w/ Childcare or Family Care: No Living arrangements: with family Additional living arrangements comments: The patient lives in [place] with her . Occupation/Education: retired Additional occupation/education comments: Retired. Spiritual care concerns: No Agree to blood products: Yes Exam Narrative: GENERAL APPEARANCE: WELL-DEVELOPED, WELL-NOURISHED SKIN: NORMAL COLOR CHEST AND RESPIRATORY: AIRWAY PATENT, NO RESPIRATORY DISTRESS, NO ACCESSORY MUSCLE USE HEART: REGULAR RATE/RHYTHM ABDOMEN: SOFT, NONTENDER, NO ORGANOMEGALY, QUIET BOWEL SOUNDS VASCULAR: NORMAL PERIPHERAL PULSES, NORMAL CAPILLARY REFILL. NEUROLOGIC: ALERT AND ORIENTED ?3, C Course Vital Signs Vital signs: Vital Signs Pulse Rate 73 08/08/24 12:17 Respiratory Rate 18 08/08/24 12:17 Blood Pressure 186/89 H 08/08/24 12:17 Pulse Oximetry 97 08/08/24 12:17 Oxygen Delivery Room
[2024-08-08] MEDS: SODIUM CHLORIDE 0.9% IV 1,000 ML 999 ML IV CONT (13:04)
[2024-08-08 13:05] VITALS: BP 143/85; PULSE 67; RESP 16; O2SAT 97
[2024-08-08 13:13] LABS: Basophils Percent Auto 0.3 % (0.2-1.2); Eosinophils Absolute Auto 0.1 K/mm3 (0-0.3); Eosinophils Percent Auto 0.7 % (0-4.4); Hematocrit 36.3 % (37.0-47.0); Hemoglobin 12.8 g/dL (12.0-15.0); Immature Granulocyte Absolute 0.04 K/mm3 (0.00-0.031); Immature Granulocyte Percent A 0.4 % (0-0.5); Lymphocytes Absolute Auto 1.75 K/mm3 (0.9-3.2); Lymphocytes Percent Auto 19.5 % (18.3-44.2); Mean Corpuscular HGB Conc 35.3 g/dl (32-36); Mean Corpuscular Hemoglobin 32.8 pg (26-34); Mean Corpuscular Volume 93.1 fl (80-100); Mean Platelet Volume 8.8 fl (7.4-10.4); Monocytes Absolute Auto 0.7 K/mm3 (0.1-0.6); Neutrophils Absolute Auto 6.4 K/mm3 (1.3-6.7); Neutrophils Percent Auto 71.1 % (45.5-73.1); Platelet Count Result 287 k/mm3 (150-375); Red Cell Distribution Width 12.1 % (11.5-14.5)
[2024-08-08 13:26] LABS: Alanine Aminotransferase 8 U/L (6-35); Albumin Level 3.5 g/dL (3.5-5.1); Alkaline Phosphatase 68 U/L (38-126); Anion Gap 8 mmol/L (4-12); Aspartate Amino Transferase 14 U/L (14-36); Bilirubin,Total 0.3 mg/dL (0.2-1.3); Blood Urea Nitrogen 5 mg/dL (7-17); Calcium 9.7 mg/dL (8.4-10.2); Carbon Dioxide 22 mmol/L (22-30); Chloride 104 mmol/L (98-107); Estimated CRCL calculation 61 ml/min; Estimated Glomerular Filt Rate > 60; Glucose 117 mg/dL (65-110); Potassium 3.3 mmol/L (3.4-5.0); Sodium 134 mmol/L (137-145)
[2024-08-08 13:43] VITALS: BP 164/80; PULSE 67; RESP 20; TEMP 36.8; O2SAT 98
[2024-08-08 14:19] VITALS: BP 154/85; PULSE 74; O2SAT 98
== END 2024-08-08 14:28 | disposition home or self-care (01) ==
PROVIDERS: Emergency Provider Emergency Medicine; PCP Family Medicine
DX: R19.7 Diarrhea, unspecified (principal); E87.6 Hypokalemia; I10 Essential (primary) hypertension; E78.1 Pure hyperglyceridemia; E55.9 Vitamin D deficiency, unspecified; E89.0 Postprocedural hypothyroidism; K21.9 Gastro-esophageal reflux disease without esophagitis; K44.9 Diaphragmatic hernia without obstruction or gangrene; M85.80 Other specified disorders of bone density and structure, unspecified site; Z87.442 Personal history of urinary calculi; Z86.0101 Personal history of adenomatous and serrated colon polyps; Z90.49 Acquired absence of other specified parts of digestive tract; Z90.710 Acquired absence of both cervix and uterus; Z79.899 Other long term (current) drug therapy
CPT/HCPCS: 36415; 80053; 85025; 96360; 99283; J7030

== ENCOUNTER 2024-08-12 12:33 | Outpatient (CLI) | payer MEDICARE, SELFPAY ==
[2024-08-12 14:03] LABS: Toxigenic C. Diff NEGATIVE (NEGATIVE)
== END 2024-08-12 12:34 | disposition home or self-care (01) ==
PROVIDERS: PCP Family Medicine; Visit Provider Physician Assistant
DX: K52.9 Noninfective gastroenteritis and colitis, unspecified (principal)
CPT/HCPCS: 87045; 87427; 87449; 87493

== ENCOUNTER 2024-08-16 10:11 | Outpatient (CLI) | payer MEDICARE, SELFPAY ==
[2024-08-16 11:03] LABS: Anion Gap 6 mmol/L (4-12); Blood Urea Nitrogen 9 mg/dL (7-17); Calcium 10.3 mg/dL (8.4-10.2); Carbon Dioxide 28 mmol/L (22-30); Chloride 102 mmol/L (98-107); Estimated Glomerular Filt Rate > 60; Glucose 92 mg/dL (65-110); Potassium 4.1 mmol/L (3.4-5.0); Sodium 136 mmol/L (137-145)
== END 2024-08-16 10:12 | disposition home or self-care (01) ==
LOC: ANHLAB 10:15
PROVIDERS: PCP Family Medicine; Visit Provider Student in an Organized Health Care Education/Training Program
DX: E87.6 Hypokalemia (principal)
CPT/HCPCS: 36415; 80048

== ENCOUNTER 2024-08-31 14:09 | Outpatient (CLI) | payer MEDICARE, SELFPAY | END 2024-08-31 14:10 | disposition home or self-care (01) | LOC: ANHLAB 14:11 | PROVIDERS: PCP Family Medicine; Visit Provider Nurse Practitioner Family | DX: N32.1 Vesicointestinal fistula (principal); R19.7 Diarrhea, unspecified | CPT/HCPCS: 83993 ==

== ENCOUNTER 2024-11-22 08:00 | Outpatient (RCR) | payer MEDICARE, SELFPAY ==
--- OUTSIDE RECORDS SUMMARY | 2024-11-22 12:43 | XMS_ITS | Clinical Summary ---
Author Organization [facility] [address] Address [address] [place] [address] Care Team Providers Care Diabetes Education Coordinator Name Role Phone Rosmery Smith MD Primary Care Provider [phone] Allergies Active Allergy Reactions Criticality Noted Date Comments Antihistamines - Alkylamine Other (See comments) Low 03/17/2023 Shaky Sulfa (Sulfonamide Antibiotics) Swelling Medium 02/25 Medications metoprolol tartrate (LOPRESSOR) 50 mg immediate release tablet Take 1 tablet (50 mg total) by mouth 2 (two) times a day Active esomeprazole DR (NexIUM) 20 mg capsule Take 2 capsules (40 mg total) by mouth daily before breakfast Active Active Problems Problem Noted Date Diagnosed Date Abnormal stress test 05/14/2023 Surgical History Surgery Date Site/Laterality Comments HYSTERECTOMY CHOLECYSTECTOMY THYROIDECTOMY Medical History Medical History Date Comments Hypertension Family History Medical History Relation Name Comments Heart attack Father Heart disease Father Colon cancer Mother Hypertension Mother Relation Name Status Comments Father Mother Social History Tobacco Use Types Packs/Day Years Used Date Smoking Tobacco: Never Passive Smoke Exposure: Past Smokeless Tobacco: Never Tobacco Cessation:Counseling Given: Not Answered Personal Safety Answer Date Recorded Getting School Help Needed Not on file 12/22 Comments Unknown Sex and Gender Information Value Date Recorded Sex Assigned at Not on file 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 Gender Identity Not on file Sexual Orientation Not on file Obstetrics History Last Filed Vital Signs Vital Sign Reading Time Taken Comments Blood Pressure 146/100 05/14/2023 9:56 AM CDT Pulse 63 05/14/2023 9:56 AM CDT Temperature - - Respiratory Rate - - Oxygen Saturation 98% 05/14/2023 9:56 AM CDT Inhaled Oxygen Concentration - - Weight 64.9 kg (143 lb) 05/14/2023 9:56 AM CDT Height 162.6 cm (5' 4 ) 05/14/2023 9:56 AM CDT Body Mass Index 24.55 05/14/2023 9:56 AM CDT Plan of Treatment Health Maintenance Due Date Last Done Comments Depression Screening 1942 Fall Risk Assessment 1942 Osteoporosis Screening-Bone Density Scan 1942 Hepatitis B Screening 1960 Zoster Vaccine (1 of 2) 1992 Well Visit 65+ 2007 Pneumococcal vaccine 65+ (2 of 2 - PPSV23 or PCV20) 12/01/2021 12/01/2020 Covid-19 Vaccine (5 - 2023-2 5 season) 2024 08/14/2022, 10/31/2021, 01/19/2021, Additional history exists Influenza Vaccine (#1) 2024 , 07/19/2021, 06/26/2020, Additional history exists DTaP/Tdap/Td Vaccine (2 - Td or Tdap) 12/01/2030 12/01/2020 [place] [address] MEDICARE [facility]MERLY [facility] [address] Care Teams Diabetes Education Coordinator Relationship Specialty Start Date End Date Rosmery Smith MD PCP - General Family Medicine 02/28/23
--- OUTSIDE RECORDS SUMMARY | 2024-11-22 12:43 | XMS_ITS | Referral Summary ---
Author Organization [facility] [address] Address [address] [place] [address] Care Team Providers Care Metal Products Fabricator Assembler Name Role Phone Rosmery Smith MD Primary Care Provider [phone] Allergies Active Allergy Reactions Criticality Noted Date [...] Date Diagnosed Date Abnormal stress test 05/14/2023 Social History Tobacco Use Types Packs/Day Years Used Date Smoking Tobacco: Never Passive Smoke Exposure: Past Smokeless Tobacco: Never Tobacco Cessation:Counseling Given: Not Answered Personal Safety Answer Date Recorded Getting School Help Needed Not on file 12/22 Comments Unknown Sex and Gender Information Value Date Recorded Sex Assigned at Not on file 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
--- OUTSIDE RECORDS SUMMARY | 2024-11-22 12:43 | XMS_ITS | Continuity of Care Document ---
Author Organization [facility] Address [address] [place] [address] Phone Care Team Providers Care Guide Tour Name Role Phone Michelle Garza Unavailable Unavailable Advance Directives Directive Yes / No Effective Date File Name No Information Encounters Encounter Description Practice Location Reason(s) For Visit Diagnoses Date Provider Providers Copied on Encounter [facility], [address], [place], [place], [id number], [place] tel:[phone] [address] [facility] No Information 5 Kayla Martinez. [address] , [address], [place], [address], [place]. tel:[phone] Referring Provider: Ty Hirsch, [address] , [place], [address]. tel:[phone] Family History Family Member Type Diagnosis Age [...]
--- OUTSIDE RECORDS SUMMARY | 2024-11-22 12:52 | XMS_ITS | Continuity of Care Document ---
Author Organization [facility] Address [address] [place] [address] Phone Care Team Providers Care Attorney Law Clerk Name Role Phone Michelle Garza Unavailable Unavailable Advance Directives Directive Yes / No Effective Date File Name No Information Encounters Encounter Description Practice Location Reason(s) For Visit Diagnoses Date Provider Providers Copied on Encounter [facility], [address], [place], [place], [id number], [place] tel:[phone] [address] [facility] No Information 5 Kayla Martinez. [address] , [address], [place], [address], [place]. tel:[phone] Referring Provider: Ty Hirsch, [address] , [place], [address]. tel:[phone] Family History Family Member Type Diagnosis Age [...]
== END 2024-11-22 08:30 | disposition home or self-care (01) ==
LOC: ANHLAB 08:00
PROVIDERS: PCP Family Medicine; Visit Provider Nurse Practitioner Family
DX: R19.5 Other fecal abnormalities (principal); R19.7 Diarrhea, unspecified; Z87.19 Personal history of other diseases of the digestive system
CPT/HCPCS: 83993

== ENCOUNTER 2024-12-27 10:04 | Outpatient (CLI) | payer MEDICARE, SELFPAY ==
[2024-12-27 15:10] LABS: Alanine Aminotransferase 9 U/L (6-35); Albumin Level 4.3 g/dL (3.5-5.1); Alkaline Phosphatase 89 U/L (38-126); Anion Gap 10 mmol/L (4-12); Aspartate Amino Transferase 29 U/L (14-36); Bilirubin,Total 0.7 mg/dL (0.2-1.3); Blood Urea Nitrogen 12 mg/dL (7-17); Calcium 10.6 mg/dL (8.4-10.2); Carbon Dioxide 26 mmol/L (22-30); Chloride 99 mmol/L (98-107); Estimated Glomerular Filt Rate > 60; Glucose 105 mg/dL (65-110); Phosphorus 3.8 mg/dL (2.5-4.5); Potassium 4.4 mmol/L (3.4-5.0); Sodium 135 mmol/L (137-145)
[2024-12-27 15:16] LABS: Parathyroid Intact 98.6 pg/mL (14.5-75.2)
[2024-12-27 19:39] LABS: Vitamin D 25 Hydroxy 45.5 ng/mL
== END 2024-12-27 10:05 | disposition home or self-care (01) ==
LOC: ANHGOSHLAB 10:06
PROVIDERS: PCP Family Medicine; Visit Provider Family Medicine
DX: E21.3 Hyperparathyroidism, unspecified (principal); E87.1 Hypo-osmolality and hyponatremia; E78.1 Pure hyperglyceridemia; R53.83 Other fatigue; E55.9 Vitamin D deficiency, unspecified
CPT/HCPCS: 36415; 80053; 82306; 82533; 83970; 84100; 84443

== ENCOUNTER 2024-12-30 08:02 | Outpatient (CLI) | payer MEDICARE, SELFPAY ==
--- NOTE | ~2024-12-30 | CT_ITS ---
EXAMINATION: CT abdomen pelvis w con DATE: 12/30/2024 08:29 INDICATION: Vesicointestinal fistula. TECHNIQUE: Computed tomography (CT) of the abdomen and pelvis was performed with 100 mL Omnipaque 350 intravenous contrast. Automated exposure control and iterative reconstruction technique were employe d. The dose-length product was 507.84 mGy-cm. COMPARISON: CT abdomen and pelvis 07/31/2024 FINDINGS: The visualized portions of the lung bases demonstrate mild atelectasis. No pleural effusion . The heart size is normal. No pericardial effusion. There is a large sliding hiatal hernia. There ar e cysts in the liver measuring up to 3.6 cm. There are changes of cholecystectomy. Calcifications in the spleen are consistent with old granulomatous disease. The pancreas and adrenal glands are normal. There is cortical thinning of the kidneys. There are cysts in the kidneys measuring up to 2.6 cm on the left. Stool distends the rectum. There are scattered diverticula in the colon. There is wall thic kening of the sigmoid colon. The wall of the sigmoid colon abuts the wall of the bladder. There is fa t stranding between the sigmoid colon and bladder wall. There is fat stranding between the sigmoid co shahid and the vagina. The appendix is normal. There is calcified atherosclerosis of the aorta and many of the other arteries. There are no pathologically enlarged lymph nodes. There is no free intraperito magdiel fluid. There is thoracolumbar dextroscoliosis and mild spondylosis. IMPRESSION: 1. Chronic sigmoid diverticulitis with chronic inflammation extending from the sigmoid colon to the b ladder wall and vagina. 2. Large sliding hiatal hernia. Reviewed, dictated and finalized at location [] UDER OPERATOR VERTICAL IMPRESSION: 1. Chronic sigmoid diverticulitis with chronic inflammation extending from the sigmoid colon to the bladder wall and vagina. 2. Large sliding hiatal hernia.
--- OUTSIDE RECORDS SUMMARY | 2024-12-30 08:10 | XMS_ITS | Referral Summary ---
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
--- OUTSIDE RECORDS SUMMARY | 2024-12-30 08:10 | XMS_ITS | Continuity of Care Document ---
Author Organization [facility] Address [address] [place] [address] Phone Care Team Providers Care Assistant Manager Airside Operations Name Role Phone Michelle Garza Unavailable Unavailable Advance Directives Directive Yes / No Effective Date File Name No Information Encounters Encounter Description Practice Location Reason(s) For Visit Diagnoses Date Provider Providers Copied on Encounter [facility], [address], [place], [place], [id number], [place] tel:[phone] [address] [facility] No Information 5 Kayla Martinez. [address] , [address], [place], [address], [place]. tel:[phone] Referring Provider: Ty Hirsch, [address] , [place], [address]. tel:[phone] Family History Family Member Type Diagnosis Age [...]
--- OUTSIDE RECORDS SUMMARY | 2024-12-30 08:10 | XMS_ITS | Clinical Summary ---
Author Organization [facility] [address] Address [address] [place] [address] Care Team Providers Care Mortgage Loan Coordinator Name Role Phone Rosmery Smith MD Primary Care Provider [phone] Allergies Active Allergy Reactions Criticality Noted Date Comments Antihistamines - Alkylamine Other (See comments) Low 03/17/2023 Shaky Sulfa (Sulfonamide Antibiotics) Swelling Medium 02/25 Medications metoprolol tartrate (LOPRESSOR) 50 mg immediate release tablet Take 1 tablet (50 mg total) by mouth 2 (two) times a day [address] (NexIUM) 20 mg capsule [...] on file 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
== END 2024-12-30 08:03 | disposition home or self-care (01) ==
PROVIDERS: PCP Family Medicine; Visit Provider Surgery
DX: N32.1 Vesicointestinal fistula (principal); K44.9 Diaphragmatic hernia without obstruction or gangrene; K57.32 Diverticulitis of large intestine without perforation or abscess without bleeding
CPT/HCPCS: 74177; Q9967

== ENCOUNTER 2025-01-12 11:20 | Outpatient (CLI) | payer MEDICARE, SELFPAY ==
[2025-01-12 12:35] LABS: Influenza A QL RT-PCR Negative (Negative); Influenza B QL RT-PCR Negative (Negative); RSV RNA, RT-PCR Negative (Negative); SARS-CoV-2 RNA PCR Negative (Negative)
--- OUTSIDE RECORDS SUMMARY | 2025-01-12 13:17 | XMS_ITS | Referral Summary ---
Author Organization [facility] [place] [facility] [address] Address [address] [place] [address] Care Team Providers Care Billet Straightener Name Role Phone Rosmery Smith MD Primary Care Provider [phone] Allergies Active Allergy Reactions Criticality Noted Date [...] on file Legal Sex Female 6:40 AM FUR SEWER Gender Identity Not on file Sexual Orientation [...] of Treatment Not on file Insurance MEDICARE [facility] Care Teams Billet Straightener Relationship Specialty Start Date End Date Rosmery Smith MD PCP - General Family Medicine 02/28/23
--- OUTSIDE RECORDS SUMMARY | 2025-01-12 13:17 | XMS_ITS | Continuity of Care Document ---
Author Organization [facility] Address [address] [place] [address] Phone Care Team Providers Care Billboard Erector Helper Name Role Phone Michelle Garza Unavailable Unavailable Advance Directives Directive Yes / No Effective Date File Name No Information Encounters Encounter Description Practice Location Reason(s) For Visit Diagnoses Date Provider Providers Copied on Encounter [facility], [address], [place], [place], [id number], [place] tel:[phone] [facility] No Information 5 Kalya Martinez. [address] , [address], [place], [address], [place]. tel:[phone] Referring Provider: Ty Hirsch, [address] , [place], [address]. tel:[phone] Family History Family Member Type Diagnosis Age [...]
--- OUTSIDE RECORDS SUMMARY | 2025-01-12 13:17 | XMS_ITS | Clinical Summary ---
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
== END 2025-01-12 11:21 | disposition home or self-care (01) ==
PROVIDERS: PCP Family Medicine; Visit Provider Family Medicine
DX: J06.9 Acute upper respiratory infection, unspecified (principal); Z20.822 Contact with and (suspected) exposure to COVID-19
CPT/HCPCS: 87637

== ENCOUNTER 2025-03-24 07:50 | Outpatient (CLI) | payer MEDICARE, SELFPAY ==
--- NOTE | ~2025-03-24 | MM_ITS ---
EXAMINATION: MM screening joseph BI w rk HISTORY: Screening TECHNIQUE: Craniocaudal and mediolateral oblique 3-D tomosynthesis images were obtained and synthetic 2-D images were generated. CAD analysis was submitted and interpreted. COMPARISON: Comparison to multiple prior studies sequentially, with oldest reviewed study dated 08/27. BREAST PARENCHYMAL COMPOSITION: Not dense: There are scattered areas of fibroglandular density. FINDINGS: There is no evidence of suspicious mass, calcification, or architectural distortion to sugg est malignancy in either breast. There has been no suspicious interval change. IMPRESSION: 1. No mammographic evidence of malignancy. 2. Recommend routine screening mammography in one year. BI-RADS Category 1: Negative Reviewed, dictated and finalized at location A.
--- OUTSIDE RECORDS SUMMARY | 2025-03-24 07:55 | XMS_ITS | Continuity of Care Document ---
Author Organization [facility] Address [address] [place] [address] Phone Care Team Providers Care Cake Press Operator Helper Name Role Phone Michelle Garza Unavailable Unavailable Advance Directives Directive Yes / No Effective Date File Name No Information Encounters Encounter Description Practice Location Reason(s) For Visit Diagnoses Date Provider Providers Copied on Encounter [facility], [address], [place], [place], [id number], [place] tel:[phone] SEC [facility] No Information 5 Kayla Martinez. [address] , [address], [place], [address], [place]. tel:[phone] Referring Provider: Ty Hirsch, [address] , [place], [address]. tel:[phone] Family History Family Member Type Diagnosis Age [...]
--- OUTSIDE RECORDS SUMMARY | 2025-03-24 07:55 | XMS_ITS | Clinical Summary ---
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 Gender Identity Not on file Sexual Orientation [...] 9:56 AM CDT Height 162.6 cm (5' 4) 05/14/2023 9:56 AM CDT Body Mass Index 24.55 05/14/2023 9:56 AM CDT Plan of Treatment Health Maintenance Due Date Last Done Comments Depression Screening 1940 Fall Risk Assessment 1940 Osteoporosis Screening-Bone Density Scan 1940 Hepatitis B Screening 1960 Zoster Vaccine (1 of 2) 1992 Well Visit 65+ 2007 Pneumococcal vaccine 65+ (2 of 2 - PPSV23) 12/01/2021 12/01/2020 Covid-19 Vaccine (2023-2 5 season) 2024 08/14/2022, 10/31/2021, 01/19/2021, Additional history exists Influenza Vaccine (Season Ended) 2025 06/23/2022, 07/19/2021, 06/26/2020, Additional history exists DTaP/Tdap/Td Vaccine (2 - Td or Tdap) 12/01/2030 12/01/2020 Insurance MEDICARE [facility] [address] [place] [id number] Care Teams Adjudication Specialist Relationship Specialty Start Date End Date Rosmery Smith MD PCP - General Family Medicine 02/28/23
--- OUTSIDE RECORDS SUMMARY | 2025-03-24 07:55 | XMS_ITS | Referral Summary ---
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
== END 2025-03-24 07:51 | disposition home or self-care (01) ==
LOC: ANHIMG 07:52
PROVIDERS: PCP Family Medicine; Visit Provider Family Medicine
DX: Z12.31 Encounter for screening mammogram for malignant neoplasm of breast (principal)
CPT/HCPCS: 77063; 77067

== ENCOUNTER 2025-05-30 08:43 | Outpatient (CLI) | payer MEDICARE, SELFPAY ==
--- NOTE | ~2025-05-30 | DEXA_ITS ---
Bone Density Report Name: MANE CUENCA Age: 84 Sex: Female Ethnicity: White Date of : 1940 Indication: osteopenia; height loss; prior fracture; hysterectomy; Referring Provider: BARRETT HENRY Study: Bone densitometry was performed. Exam Date: May 30, 2025 Accession number: [id number] Bone Density: Region BMD T-score Z-score Classification AP Spine(L3, L4) 0.717 -3.5 -0.6 Osteoporosis Femoral Neck (Left) 0.577 -2.5 0.0 Osteoporosis Total Hip (Left) 0.699 -2.0 0.2 Osteopenia Femoral Neck (Right) 0.560 -2.6 -0.2 Osteoporosis Total Hip (Right) 0.639 -2.5 -0.3 Osteoporosis Total Hip Mean 0.669 -2.3 -0.1 Osteopenia World Health Organization criteria for BMD impression classify patients as: Normal (T-score at or above -1.0), Osteopenia (T-score between -1.0 and -2.5), or Osteoporosis (T-score at or below -2.5). 10-year Fracture Risk: FRAX not reported because: Some T-score for Spine Total or Hip Total or Femoral Neck at or below -2.5 Previous Exams: Region Exam Age BMD T-score BMD Change BMD Change Date g/cm2 vs Baseline vs Previous AP Spine (L3-L4) 05/30/2025 84 0.717 -3.5 -0.120 (-14.3% -0.120 (-14.3% 02/25/2018 77 0.837 -2.4 Total Hip(Left) 05/30/2025 84 0.699 -2.0 -0.154 (-18.1% -0.154 (-18.1% 02/25/2018 77 0.853 -0.7 Total Hip(Right) 05/30/2025 84 0.639 -2.5 -0.207 (-24.5% -0.207 (-24.5% 02/25/2018 77 0.847 -0.8 *Denotes significance at 95% confidence level, LSC for AP Spine = 0.022 g/cm2, LSC for Total Hip = 0.027 g/cm2 Clinical Information Provided by Patient: Has had a low trauma fracture Has the following medical conditions: Hysterectomy Patient maximum height was 65.5 Menopause Age: 54 No regular weight bearing exercise Drinks caffeinated beverages Onset of menses at age 14 Number of children 2 Impression: The patient has established osteoporosis, based on the Total Spine T-score and the existence of a prior fracture. The patient has risk factors, including: previous fracture. The BMD for the AP Spine (L3-L4) decreased, changing by -14.3% since the last DXA exam. The BMD for the Total Hip(Left) decreased, changing by -18.1% since the last DXA exam. The BMD for the Total Hip(Right) decreased, changing by -24.5% since the last DXA exam. Discussion: HIGH RISK OF FRACTURE. BONE DENSITY IS UNDESIRABLY LOW AT ONE OR MORE SKELETAL SITES, CONSISTENT WITH POSTMENOPAUSAL OSTEOPOROSIS. This patient's lowest T-score, in a patient who has previously fractured, meets the World Health Organization's (WHO) criteria for severe osteoporosis. In untreated patients, the risk of osteoporotic fracture increases approximately two-fold for each 1.0 SD decrease in T-score. Low bone density is not the only risk factor for fracture; also consider factors such as patient's age, frailty or poor health, risk of falling, risk of injury, previous osteoporotic fracture, family history of osteoporosis, cigarette smoking, low body weight, etc. Not everyone with low bone mineral density has osteoporosis; osteomalacia and other metabolic bone disorders should also be considered. Patients who have osteoporosis should be evaluated for specific diseases and conditions (secondary causes) that may cause or contribute to bone loss. The [place] Association of Clinical Endocrinologists (AACE) and National Osteoporosis Foundation (NOF) recommend pharmacologic intervention for all postmenopausal women whose T-score is in this range. The patient should follow a healthful lifestyle (good nutrition with adequate calcium and vitamin D, and appropriate weight-bearing exercise). Follow-Up: Consider a repeat BMD and Vertebral Fracture Assessment (VFA) exam in 2 years or sooner if medically necessary, to reassess this patient's status. Reported by: JULIANNE on 05/30/2025 9:31:00 AM. Reviewed, dictated and finalized at location A.
--- OUTSIDE RECORDS SUMMARY | 2025-05-30 08:47 | XMS_ITS | Continuity of Care Document ---
Author Organization [facility] Address [address] [place] [address] Phone Care Team Providers Care Train Brakeman Name Role Phone Michelle Garza Unavailable Unavailable Advance Directives Directive Yes / No Effective Date File Name No Information Encounters Encounter Description Practice Location Reason(s) For Visit Diagnoses Date Provider Providers Copied on Encounter [facility], [address], [place], [place], [id number], [place] tel:[phone] SEC [facility] No Information 5 Kayla Martinez. [address] , [address], [place], [address], [place]. tel:[phone] Referring Provider: Ty Hirsch, [address] , [place], [address]. tel:[phone] Family History Family Member Type Diagnosis Age [...]
--- OUTSIDE RECORDS SUMMARY | 2025-05-30 08:47 | XMS_ITS | Clinical Summary ---
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
--- OUTSIDE RECORDS SUMMARY | 2025-05-30 08:47 | XMS_ITS | Referral Summary ---
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
== END 2025-05-30 08:44 | disposition home or self-care (01) ==
LOC: ANHIMG 08:44
PROVIDERS: PCP Family Medicine; Visit Provider Family Medicine
DX: Z78.0 Asymptomatic menopausal state (principal); M81.0 Age-related osteoporosis without current pathological fracture; M85.852 Other specified disorders of bone density and structure, left thigh; M85.851 Other specified disorders of bone density and structure, right thigh
CPT/HCPCS: 77080

== ENCOUNTER 2025-06-03 08:48 | Outpatient (CLI) | payer MEDICARE, SELFPAY ==
--- OUTSIDE RECORDS SUMMARY | 2025-06-03 08:51 | XMS_ITS | Clinical Summary ---
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
--- OUTSIDE RECORDS SUMMARY | 2025-06-03 08:51 | XMS_ITS | Continuity of Care Document ---
Author Organization [facility] Address [address] [place] [address] Phone Care Team Providers Care Professor Of Business Administration Name Role Phone Michelle Garza Unavailable Unavailable Advance Directives Directive Yes / No Effective Date File Name No Information Encounters Encounter Description Practice Location Reason(s) For Visit Diagnoses Date Provider Providers Copied on Encounter [facility], [address], [place], [place], [id number], [place] tel:[phone] SEC [facility] No Information 5 Kayla Martinez. [address], [place], [address], [place]. tel:[phone] Referring Provider: Ty Hirsch, [address] , [place], [address]. tel:[phone] Family History Family Member Type Diagnosis Age [...]
[2025-06-03 13:07] LABS: Hematocrit 43.6 % (37.0-47.0); Hemoglobin 14.5 g/dL (12.0-15.0); Immature Granulocyte Percent A 0.4 % (0-0.5); Lymphocytes Absolute Auto 2.84 K/mm3 (0.9-3.2); Mean Corpuscular HGB Conc 33.3 g/dl (32-36); Mean Corpuscular Hemoglobin 32.2 pg (26-34); Mean Corpuscular Volume 96.9 fl (80-100); Nucleated Red Blood Cells Absolute Auto 0.000 K/mm3 (0.0-0.012); Nucleated Red Blood Cells Perc 0.0 % (0.0-0.2); Platelet Count Result 266 k/mm3 (150-375); Red Blood Count 4.50 M/mm3 (4.2-5.4); White Blood Count 8.5 K/mm3 (4.5-10.0)
[2025-06-03 13:18] LABS: Alanine Aminotransferase 10 U/L (6-35); Albumin Level 4.2 g/dL (3.5-5.1); Alkaline Phosphatase 82 U/L (38-126); Anion Gap 5 mmol/L (4-12); Aspartate Amino Transferase 26 U/L (14-36); Bilirubin,Total 0.8 mg/dL (0.2-1.3); Blood Urea Nitrogen 9 mg/dL (7-17); Calcium 10.3 mg/dL (8.4-10.2); Carbon Dioxide 27 mmol/L (22-30); Chloride 99 mmol/L (98-107); Cholesterol 136 mg/dL (0-200); Estimated Glomerular Filt Rate > 60; Glucose 91 mg/dL (65-110); HDL Direct 48 mg/dL; Potassium 4.1 mmol/L (3.4-5.0); Sodium 131 mmol/L (137-145); Total Protein 6.8 g/dL (6.3-8.2); Triglycerides 151 mg/dL (<150)
== END 2025-06-03 08:49 | disposition home or self-care (01) ==
LOC: ANHGOSHLAB 08:49
PROVIDERS: PCP Family Medicine; Visit Provider Family Medicine
DX: E11.9 Type 2 diabetes mellitus without complications (principal); Z00.00 Encounter for general adult medical examination without abnormal findings; E78.2 Mixed hyperlipidemia; R53.83 Other fatigue
CPT/HCPCS: 36415; 80053; 80061; 85025

== ENCOUNTER 2025-06-15 12:40 | Emergency (ER) | payer MEDICARE, SELFPAY ==
--- NOTE | ~2025-06-15 | XR_ITS ---
EXAMINATION: XR chest 2V DATE: 06/15/2025 14:45 INDICATION: Dizziness TECHNIQUE: frontal and lateral views of the chest were obtained. COMPARISON: Chest radiograph dated 01/02/2024 FINDINGS: The lungs remain clear with no focal airspace opacities, pulmonary edema, pleural effusion or pneumothorax. Heart size is normal. Calcified hilar and mediastinal lymph nodes consistent with old granulomatous disease. Large hiatal hernia. Thoracic kyphosis. Cholecystectomy clips in right upper quadrant. IMPRESSION: 1. No acute cardiopulmonary disease. 2. Large hiatal hernia. Reviewed, dictated and finalized at location A.
--- NOTE | ~2025-06-15 | CT_ITS ---
EXAM: CT brain wo con - 06/15/2025 14:15 CDT History: 84 years old Female with dizziness COMPARISON: None available. PROCEDURE: CT of the head without contrast. Axial, sagittal and coronal reformatted planes were evaluated. Automatic exposure control was used for this study. FINDINGS: BRAIN PARENCHYMA: No acute hemorrhage. No mass effect or herniation. Gill-white matter differentiation is maintained. Mild chronic volume loss. Scattered hypodensities in subcortical and periventricular white matter, likely representing chronic microvascular ischemic changes in this age group. Atherosc lerotic calcification of the intracranial vessels is noted. VENTRICLES/ EXTRA-AXIAL SPACES: No hydrocephalus or extra-axial fluid collection. EXTRACRANIAL STRUCTURES: No calvarial fracture. IMPRESSION: No evidence for acute intracranial hemorrhage or calvarial fracture. Reviewed, dictated and finalized at location A.
--- OUTSIDE RECORDS SUMMARY | 2025-06-15 12:42 | XMS_ITS | Clinical Summary ---
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
[2025-06-15 13:20] VITALS: BP 155/87; PULSE 65; RESP 16; TEMP 36.6; O2SAT 95
--- NOTE | 2025-06-15 14:08 | ED_ITS ---
HPI - Dizziness General Chief Complaint: Dizziness <Consuelo Velasquez PA-C - Last Filed: 06/17/25 09:19> Stated Complaint: Dizziness since 399-sent by Dr Riddle office <Consuelo Velasquez PA-C - Last Filed: 06/17/25 09:19> Time Seen by Provider: 06/15/25 14:08 <Consuelo Velasquez PA-C - Last Filed: 06/17/25 09:19> Focused HPI: This is a 84 year old female that presents to the ER for dizziness ongoing since 4 this morning. Reports she tried taking tylenol and drinking some water. Woke up again this morning without relief. Reports she feels lightheaded. Denies chest pain, shortness of breath, abdominal pain, vomiting, dysuria. GENERAL: Elderly, well-nourished, and in no acute distress. HEAD: Normocephalic, atraumatic. CHEST: Clear to auscultation. ?No respiratory distress. HEART: Regular rate and rhythm.? NEURO: ?Alert and oriented x3. Patient screened in triage and initial orders placed.? ?Additional care and disposition to be based upon?diagnostic testing and treatment. <Consuelo Velasquez PA-C - Last Filed: 06/17/25 09:19> History of Present Illness HPI Narrative: patient is a 84-year-old female who presents emergency department with chief complaint of dizziness. Patient reports her symptoms started around 4:00 a.m. this morning reports that she was last normal at midnight where she woke up and was normal the patient reports that he feels as though she is lightheaded patient denies a rotational symptoms with this patient denies chest pain denies shortness of breath denies nausea vomiting or dysuria the patient reports no prior episodes of this occurring reports no changes in her hearing <Jet Zuniga MD - Last Filed: 06/15/25 18:08> Related Data Home Medications: Home Medications ?Medication ?Instructions ?Recorded ?Confirmed ?Last Taken ?Type multivitamin 1 tablet PO DAILY 08/07/21 0 05/26/25 12/31/23 History esomeprazole magnesium 40 mg 40 mg PO DAILY 01/02/24 0 05/26/25 06/08/24 08:00 History capsule,delayed release (Nexium) <Consuelo Velasquez PA-C - Last Filed: 06/17/25 09:19> Allergies/Adverse Reactions: Allergies Allergy/AdvReac Type Severity Reaction Status Date / Time Antihistamines - Alkylamine Allergy Unknown Unknown Verified 06/15/25 12:16 Sulfa (Sulfonamide Allergy Unknown Unknown Verified 06/15/25 12:16 Antibiotics) <Consuelo Velasquez PA-C - Last Filed: 06/17/25 09:19> Review of Systems 2 Review of Systems: A 10 system review of systems was completed on the patient and is negative except for what is stated in the HPI. Nursing and ancillary documentation was reviewed. <Jet Zuniga MD - Last Filed: 06/15/25 18:08> [facility] Past Medical History Medical History: Medical History Blurred vision, left eye Redness of eye, left History of colitis Elevated fecal calprotectin Kidney stones Esophageal stricture Vitamin D deficiency Adenomatous colon polyp Gastroesophageal reflux disease Essential hypertension Intermittent low back pain Hiatal hernia Esophagitis Sciatica Hypertriglyceridemia Osteopenia <Consuelo Velasquez PA-C - Last Filed: 06/17/25 09:19> Surgical History Surgical History: Surgical History History of colonoscopy with polypectomy History of hysterectomy (1989) History of cholecystectomy (1989) History of esophageal dilatation (1990) History of partial thyroidectomy (Unknown) Left. <Consuelo Velasquez PA-C - Last Filed: 06/17/25 09:19> Family History Family History: Family History Father Family history of cardiovascular disease Mother Carcinoma of colon Sibling Heart attack <Consuelo Velasquez PA-C - Last Filed: 06/17/25 09:19> Social History Social History: Social History Social History: Surrogate decision maker: Morris Min, spouse. Code status: Full code. Smoking status: Never smoker Second hand tobacco smoke exposure: No Alcohol intake: never Substance use: never Substance use type: does not use Do You Feel Safe in your Home?: Yes Lack of Transportation: No Lack of Food: Never True Current Housing: I Have Housing Concerned About Future Housing: No Difficulty Paying Gas/Electric Bills: No Difficulty Paying for Meds: No Currently Unemployed: No Education: High School Diploma/GED Difficulty w/ Childcare or Family Care: No Living arrangements: with family Additional living arrangements comments: The patient lives in [place] with her . Occupation/Education: retired Additional occupation/education comments: Retired. Spiritual care concerns: No Agree to blood products: Yes <Consuelo Velasquez PA-C - Last Filed: 06/17/25 09:19> Exam 2 Narrative: GENERAL: Well-appearing, well-nourished, and in no acute distress. HEAD: Normocephalic, atraumatic. EYES: PERRLA and EOMI. ENT: Nares clear, no rhinorrhea or epistaxis. Mucous membranes moist. NECK: Supple. CHEST: Clear to auscultation. No respiratory distress. HEART: Regular rate and rhythm. No murmur heard. Normal peripheral pulses. ABDOMEN: Soft, nontender, nondistended, normal active bowel sounds. EXTREMITIES: Normal range of motion. No edema. SKIN: Warm, dry, no rash. NEURO: No focal deficits. Alert and oriented x3. PSYCH: Normal mood and affect. <Jet Zuniga MD - Last Filed: 06/15/25 18:08> Course Vital Signs Vital signs: Vital Signs Temperature 97.9 F 06/15/25 13:20 Pulse Rate 65 06/15/25 13:20 Respiratory Rate 16 06/15/25 13:20 Blood Pressure 155/87 H 06/15/25 13:20 Pulse Oximetry 95 06/15/25 13:20 Oxygen Delivery Room Air 06/15/25 13:20 Temperature 97.9 F 06/15/25 13:20 Pulse Rate 67 06/15/25 18:18 Respiratory Rate 20 06/15/25 18:18 Blood Pressure 181/92 H 06/15/25 18:18 Pulse Oximetry 100 06/15/25 18:18 Oxygen Delivery Room Air 06/15/25 13:20 <Consuelo Velasquez PA-C - Last Filed: 06/17/25 09:19> Vital Signs Temperature 97.9 F 06/15/25 13:20 Pulse Rate 65 06/15/25 13:20 Respiratory Rate 16 06/15/25 13:20 Blood Pressure 155/87 H 06/15/25 13:20 Pulse Oximetry 95 06/15/25 13:20 Oxygen Delivery Room Air 06/15/25 13:20 Temperature 97.9 F 06/15/25 13:20 Pulse Rate 67 06/15/25 18:18 Respiratory Rate 20 06/15/25 18:18 Blood Pressure 181/92 H 06/15/25 18:18 Pulse Oximetry 100 06/15/25 18:18 Oxygen Delivery Room Air 06/15/25 13:20 <Jet Zuniga MD - Last Filed: 06/15/25 18:08> MDM - Dizziness MDM Narrative Medical decision making narrative: differential diagnosis includes intracranial hemorrhage, vertigo, CVA, dehydration, UTI, ACS EKG showed no acute ischemic changes laboratory studies showed normal CBC normal CMP urinalysis showed 2+ leukocyte esterase but no white blood cells negative bacteria and negative nitrate patient received IV fluids and Antivert is feeling much better at this point her symptoms have complete <Jet Zuniga MD - Last Filed: 06/15/25 18:08> Lab Data Result diagrams: 06/15/25 14:48 06/15/25 14:48 <MARIFER Bruno-Suzi - Last Filed: 06/17/25 09:19> Labs: Lab Results 06/15/25 06/15/25 06/15/25 Range/Units 14:48 15:35 16:12 WBC 10.6 H (4.5-10.0) K/mm3 RBC 4.30 (4.2-5.4) M/mm3 Hgb 14.1 (12.0-15.0) g/dL Hct 40.5 (37.0-47.0) % MCV 94.2 (80-100) fl MCH 32.8 (26-34) pg MCHC 34.8 (32-36) g/dl RDW 12.3 (11.5-14.5) % Plt Count 263 (150-375) k/mm3 MPV 8.9 (7.4-10.4) fl Immature Gran % (Auto) 0.3 (0-0.5) % Neut % (Auto) 65.8 (45.5-73.1) % Lymph % (Auto) 28.2 (18.3-44.2) % Norton % (Auto) 4.8 (2.6-8.5) % Eos % (Auto) 0.6 (0-4.4) % Baso % (Auto) 0.3 (0.2-1.2) % Lymph # (Auto) 2.98 (0.9-3.2) K/mm3 Norton # (Auto) 0.5 (0.1-0.6) K/mm3 Eos # (Auto) 0.1 (0-0.3) K/mm3 Baso # (Auto) 0.0 (0.0-0.1) K/mm3 Abs Immat Gran (auto) 0.03 (0.00-0.031) K/mm3 Absolute Neuts (auto) 6.9 H (1.3-6.7) K/mm3 Absolute Nucleated RBC 0.000 (0.0-0.012) K/mm3 Nucleated RBC % 0.0 (0.0-0.2) % Sodium 131 L (137-145) mmol/L Potassium 4.4 (3.4-5.0) mmol/L Chloride 101 (98-107) mmol/L Carbon Dioxide 24 (22-30) mmol/L Anion Gap 6 (4-12) mmol/L BUN 10 (7-17) mg/dL Creatinine 0.66 L (0.7-1.0) mg/dL Estim Creat Clear Calc 49 ml/min Estimated GFR > 60 (59 - ) Glucose 101 (65-110) mg/dL Calcium 10.4 H (8.4-10.2) mg/dL Total Bilirubin 0.6 (0.2-1.3) mg/dL AST 18 (14-36) U/L ALT 9 (6-35) U/L Alkaline Phosphatase 87 (38-126) U/L Troponin I < 0.012 (0.000-0.034) ng/mL Total Protein 7.0 (6.3-8.2) g/dL Albumin 4.3 (3.5-5.1) g/dL Urine Color Yellow (Yellow) Urine Appearance Cloudy H (Clear) Urine pH 6.5 (5.0-9.0) Ur Specific [place] 1.015 (1.001-1.035) Urine Protein Negative (Negative) mg/dL Urine Glucose (UA) Negative (Negative) mg/dL Urine Ketones Negative (Negative) mg/dL Ur Blood (Man) Negative (Negative) Urine Nitrate Negative (Negative) Urine Bilirubin Negative (Negative) Urine Urobilinogen 0.2 (<2.0) mg/dL Add Ur Microanalysis Reviewed Leukocyte Esterase Rfl 2+ H (Negative) LIA/UL Urine RBC 0-2 (0-2) /hpf Urine WBC 0-5 (0-3) /hpf Ur Squamous Epith Cells None seen (Few) /hpf Urine Bacteria None seen /hpf Urine Casts 0-2 <Consuelo Velasquez PA-C - Last Filed: 06/17/25 09:19> Lab Results 06/15/25 06/15/25 06/15/25 Range/Units 14:48 15:35 16:12 WBC 10.6 H (4.5-10.0) K/mm3 RBC 4.30 (4.2-5.4) M/mm3 Hgb 14.1 (12.0-15.0) g/dL Hct 40.5 (37.0-47.0) % MCV 94.2 (80-100) fl MCH 32.8 (26-34) pg MCHC 34.8 (32-36) g/dl RDW 12.3 (11.5-14.5) % Plt Count 263 (150-375) k/mm3 MPV 8.9 (7.4-10.4) fl Immature Gran % (Auto) 0.3 (0-0.5) % Neut % (Auto) 65.8 (45.5-73.1) % Lymph % (Auto) 28.2 (18.3-44.2) % Norton % (Auto) 4.8 (2.6-8.5) % Eos % (Auto) 0.6 (0-4.4) % Baso % (Auto) 0.3 (0.2-1.2) % Lymph # (Auto) 2.98 (0.9-3.2) K/mm3 Norton # (Auto) 0.5 (0.1-0.6) K/mm3 Eos # (Auto) 0.1 (0-0.3) K/mm3 Baso # (Auto) 0.0 (0.0-0.1) K/mm3 Abs Immat Gran (auto) 0.03 (0.00-0.031) K/mm3 Absolute Neuts (auto) 6.9 H (1.3-6.7) K/mm3 Absolute Nucleated RBC 0.000 (0.0-0.012) K/mm3 Nucleated RBC % 0.0 (0.0-0.2) % Sodium 131 L (137-145) mmol/L Potassium 4.4 (3.4-5.0) mmol/L Chloride 101 (98-107) mmol/L Carbon Dioxide 24 (22-30) mmol/L Anion Gap 6 (4-12) mmol/L BUN 10 (7-17) mg/dL Creatinine 0.66 L (0.7-1.0) mg/dL Estim Creat Clear Calc 49 ml/min Estimated GFR > 60 (59 - ) Glucose 101 (65-110) mg/dL Calcium 10.4 H (8.4-10.2) mg/dL Total Bilirubin 0.6 (0.2-1.3) mg/dL AST 18 (14-36) U/L ALT 9 (6-35) U/L Alkaline Phosphatase 87 (38-126) U/L Troponin I < 0.012 (0.000-0.034) ng/mL Total Protein 7.0 (6.3-8.2) g/dL Albumin 4.3 (3.5-5.1) g/dL Urine Color Yellow (Yellow) Urine Appearance Cloudy H (Clear) Urine pH 6.5 (5.0-9.0) Ur Specific [place] 1.015 (1.001-1.035) Urine Protein Negative (Negative) mg/dL Urine Glucose (UA) Negative (Negative) mg/dL Urine Ketones Negative (Negative) mg/dL Ur Blood (Man) Negative (Negative) Urine Nitrate Negative (Negative) Urine Bilirubin Negative (Negative) Urine Urobilinogen 0.2 (<2.0) mg/dL Add Ur Microanalysis Reviewed Leukocyte Esterase Rfl 2+ H (Negative) LIA/UL Urine RBC 0-2 (0-2) /hpf Urine WBC 0-5 (0-3) /hpf Ur Squamous Epith Cells None seen (Few) /hpf Urine Bacteria None seen /hpf Urine Casts 0-2 <Jet Zuniga MD - Last Filed: 06/15/25 18:08> Imaging Data Radiologist's impression: ITS Impressions Head CT 06/15/25 14:27 IMPRESSION: No evidence for acute intracranial hemorrhage or calvarial fracture. Chest X-Ray 06/15/25 14:56 IMPRESSION: 1. No acute cardiopulmonary disease. 2. Large hiatal hernia. <Consuelo Velasquez PA-C - Last Filed: 06/17/25 09:19> Discharge Plan Discharge Clinical Impression: Vertigo <Consuelo Velasquez PA-C - Last Filed: 06/17/25 09:19> Patient Disposition: Home <Consuelo Velasquez PA-C - Last Filed: 06/17/25 09:19> Condition: Stable <Consuelo Velasquez PA-C - Last Filed: 06/17/25 09:19> Instructions: Antibiotic Form, Vertigo (ED) <Consuelo Velasquez PA-C - Last Filed: 06/17/25 09:19> Patient Language: Colombian <Consuelo Velasquez PA-C - Last Filed: 06/17/25 09:19> Prescriptions: New meclizine 25 mg tablet 25 mg PO TID PRN (Reason: dizziness) Qty: 30 0RF No Action metoprolol tartrate 50 mg tablet 100 mg PO Q12H Qty: 360 2RF esomeprazole magnesium [Nexium] 40 mg capsule,delayed release(DR/EC) 40 mg PO DAILY multivitamin Tablet 1 tablet PO DAILY buspirone 10 mg tablet 10 mg PO BID PRN (Reason: stress) Qty: 60 0RF <Consuelo Velasquez PA-C - Last Filed: 06/17/25 09:19> Follow-up/Referrals: Rosmery Smith MD [Primary Care Provider, Family Practice] <Consuelo Velasquez PA-C - Last Filed: 06/17/25 09:19> Time of Disposition: 18:07 <Consuelo Velasquez PA-C - Last Filed: 06/17/25 09:19> 18:07 <Jet Zuniga MD - Last Filed: 06/15/25 18:08>
--- NOTE | 2025-06-15 14:10 | ECG_ITS ---
Test Date: 2025-06-15 15:00:51 Measurements Intervals [place] Rate: 60 P: 42 FL: 233 QRS: -18 QRSD: 90 T: -4 QT: 432 QTc: 432 Interpretive Statements SINUS RHYTHM WITH FIRST DEGREE AV BLOCK LEFT VENTRICULAR HYPERTROPHY AND ST-T CHANGE MINIMAL Q WAVES- HIGH LATERAL LEADS CANNOT R/O SEPTAL INFARCT, AGE INDETERMINATE T WAVE ABNORMALITY IN INF/LAT LEADS- CONSIDER ISCHEMIA BASELINE ARTIFACT- I, II, AVR ABNORMAL ECG Compared to ECG 07/19/2024 20:30:04 No significant changes Electronically Signed On 06-15-2025 15:03:12 CDT by Cain Pederson D.O.
[2025-06-15 14:54] LABS: Hematocrit 40.5 % (37.0-47.0); Hemoglobin 14.1 g/dL (12.0-15.0); Immature Granulocyte Percent A 0.3 % (0-0.5); Lymphocytes Absolute Auto 2.98 K/mm3 (0.9-3.2); Mean Corpuscular HGB Conc 34.8 g/dl (32-36); Mean Corpuscular Hemoglobin 32.8 pg (26-34); Mean Corpuscular Volume 94.2 fl (80-100); Nucleated Red Blood Cells Absolute Auto 0.000 K/mm3 (0.0-0.012); Nucleated Red Blood Cells Perc 0.0 % (0.0-0.2); Platelet Count Result 263 k/mm3 (150-375); Red Blood Count 4.30 M/mm3 (4.2-5.4); White Blood Count 10.6 K/mm3 (4.5-10.0)
[2025-06-15 15:06] VITALS: BP 188/90; PULSE 60; PULSE 62; RESP 13; O2SAT 100
[2025-06-15 15:08] LABS: Alanine Aminotransferase 9 U/L (6-35); Albumin Level 4.3 g/dL (3.5-5.1); Alkaline Phosphatase 87 U/L (38-126); Anion Gap 6 mmol/L (4-12); Aspartate Amino Transferase 18 U/L (14-36); Bilirubin,Total 0.6 mg/dL (0.2-1.3); Blood Urea Nitrogen 10 mg/dL (7-17); Calcium 10.4 mg/dL (8.4-10.2); Carbon Dioxide 24 mmol/L (22-30); Chloride 101 mmol/L (98-107); Estimated CRCL calculation 49 ml/min; Estimated Glomerular Filt Rate > 60; Glucose 101 mg/dL (65-110); Potassium 4.4 mmol/L (3.4-5.0); Sodium 131 mmol/L (137-145); Total Protein 7.0 g/dL (6.3-8.2)
[2025-06-15 15:37] VITALS: BP 188/89; BP 205/76; PULSE 65; PULSE 68
[2025-06-15 15:41] VITALS: BP 198/95; PULSE 70
--- OUTSIDE RECORDS SUMMARY | 2025-06-15 16:04 | XMS_ITS | Clinical Summary ---
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
[2025-06-15 16:07] LABS: Add Urine Microscopic? YES; Appearance Urine Cloudy (Clear); Glucose Urine UA Negative (Negative); Leukocyte Esterase Ur 2+ LEU/UL (Negative); Need Manual Microscopic Reviewed; Nitrate Urine Negative (Negative); Non Pathogenic Casts 0-2; Specific Grav Ur 1.015 (1.001-1.035)
[2025-06-15 16:30] VITALS: BP 167/78; PULSE 62; RESP 20; O2SAT 99
[2025-06-15 16:46] LABS: Troponin I < 0.012 ng/mL (0.000-0.034)
[2025-06-15] MEDS: MECLIZINE HCL 25 MG TABLET PO (17:07)
[2025-06-15] MEDS: SODIUM CHLORIDE 0.9% IV 1,000 ML 999 ML IV CONT (17:07)
[2025-06-15 18:18] VITALS: BP 181/92; PULSE 67; RESP 20; O2SAT 100
== END 2025-06-15 18:27 | disposition home or self-care (01) ==
PROVIDERS: Physician Assistant; Emergency Provider Emergency Medicine; PCP Family Medicine
DX: R42 Dizziness and giddiness (principal); E55.9 Vitamin D deficiency, unspecified; I10 Essential (primary) hypertension; K21.9 Gastro-esophageal reflux disease without esophagitis; R82.90 Unspecified abnormal findings in urine
CPT/HCPCS: 36415; 70450; 71046; 80053; 81001; 84484; 85025; 87086; 93005; 96360; 99284; A9270; J7030

== ENCOUNTER 2025-07-30 09:29 | Emergency (ER) | payer MEDICARE, SELFPAY ==
--- NOTE | 2025-07-30 09:36 | ED_ITS ---
HPI - Female Genitourinary General Chief complaint: Urogenital-Female Stated complaint: UTI SYMPTOMS Time Seen by Provider: 07/30/25 09:45 Source: patient Mode of arrival: ambulatory Limitations: no limitations History of Present Illness HPI Narrative: Shonda is an 85-year-old female patient presenting to the clinic today with complaints of a possible UTI/lower abdomen discomfort. She left a urine sample at her doctor's office on July 25 as she was experiencing UTI symptoms, they prescribed her cephalexin to take for her UTI symptoms, and they called her back yesterday and told her that her urine was normal. Reviewed the urine culture from Jul 25 and it showed mixed genital marina-10,000 colonies. Stated that PCP did not have time to see her yesterday and recommend she go to the Urgent Care for further evaluation. She is reporting lower abdominal pain- sharp pain that comes and goes. Rates pain currently a 4/10. Has not taken any medications for her pain. Hx of diverticulitis, GERD, esophagitis, hiatal hernia, cholecystectomy, hysterectomy, esophageal stricture, constipation, hyperlipidemia, hypertension. Last bowel movement was yesterday-states it was hard and a small amount. Denies any fevers, chills, body aches. No nausea or vomiting. Has been taking cephalexin-last dose was last night Related Data Home Medications ?Medication ?Instructions ?Recorded ?Confirmed ?Last Taken ?Type multivitamin 1 tablet PO DAILY 08/07/21 0 05/26/25 12/31/23 History esomeprazole magnesium 40 mg 40 mg PO DAILY 01/02/24 0 05/26/25 06/08/24 08:00 History capsule,delayed release (Nexium) Allergies Allergy/AdvReac Type Severity Reaction Status Date / Time Antihistamines - Alkylamine Allergy Unknown Unknown Verified 07/30/25 09:45 Sulfa (Sulfonamide Allergy Unknown Unknown Verified 07/30/25 09:45 Antibiotics) Review of Systems Review of Systems: Pertinent positives per HPI. Patient denies any fever, chills, rash, headache, visual changes, dizziness, cough, runny nose, sore throat, shortness of breath, chest pain, palpitations, nausea, vomiting, diarrhea. PMFSH Past Medical History Medical History Blurred vision, left eye Redness of eye, left History of colitis Elevated fecal calprotectin Kidney stones Esophageal stricture Vitamin D deficiency Adenomatous colon polyp Gastroesophageal reflux disease Essential hypertension Intermittent low back pain Hiatal hernia Esophagitis Sciatica Hypertriglyceridemia Osteopenia Surgical History Surgical History History of colonoscopy with polypectomy History of hysterectomy (1989) History of cholecystectomy (1989) History of esophageal dilatation (1990) History of partial thyroidectomy (Unknown) Left. Family History Family History Father Family history of cardiovascular disease Mother Carcinoma of colon Sibling Heart attack Social History Social History Social History: Surrogate decision maker: Morris Min, spouse. Code status: Full code. Smoking status: Never smoker Second hand tobacco smoke exposure: No Alcohol intake: never Substance use: never Substance use type: does not use Do You Feel Safe in your Home?: Yes Lack of Transportation: No Lack of Food: Never True Current Housing: I Have Housing Concerned About Future Housing: No Difficulty Paying Gas/Electric Bills: No Difficulty Paying for Meds: No Currently Unemployed: No Education: High School Diploma/GED Difficulty w/ Childcare or Family Care: No Living arrangements: with family Additional living arrangements comments: The patient lives in [place] with her . Occupation/Education: retired Additional occupation/education comments: Retired. Spiritual care concerns: No Agree to blood products: Yes Comments At the time of my signature, I reviewed and agree with the nursing past medical, surgical, social, and family history. There is no relevant family history pertinent to the patient complaint. Exam Narrative: General: Well-developed, well nourished, in no apparent distress. Head: Normocephalic, atraumatic. Cardio: Regular rate and rhythm, s1 and s2 normal, no murmur appreciated. Resp: Clear to auscultation bilaterally, no rhonchi, rales, wheezing or rubs. Abdomen: Soft, pliable, bowel sounds present in all quadrants, left-sided abdomen tender to palpation, no organomegly, no CVAT tenderness. Course Course Emergency Course: Portions of this record may have been created with voice recognition software. Level of Care: Express Care Visit Vital Signs Vital signs: Vital Signs Temperature 36.9 C 07/30/25 09:46 Pulse Rate 65 07/30/25 09:46 Respiratory Rate 16 07/30/25 09:46 Blood Pressure 199/96 H 07/30/25 09:46 Pulse Oximetry 99 07/30/25 09:46 Temperature 36.9 C 07/30/25 09:46 Pulse Rate 65 07/30/25 09:46 Respiratory Rate 16 07/30/25 09:46 Blood Pressure 199/96 H 07/30/25 09:46 Pulse Oximetry 99 07/30/25 09:46 Vital signs reviewed Transfer Transfered to: [facility] Transportation: Other (Private car) Transfer rationale: Left sided abdomen pain- hx of diverticulitis Accepting physician: Dr. Morales Transfer comments: Private car MDM - Female Genitourinary MDM Narrative Medical decision making narrative: At the time of visit patient is resting comfortably on the exam table. Patient appears to be nontoxic. Complaints of a possible UTI/lower abdomen discomfort. She left a urine sample at her doctor's office on July 25 as she was experiencing UTI symptoms, they prescribed her cephalexin to take for her UTI symptoms, and they called her back yesterday and told her that her urine was normal. Reviewed the urine culture from Jul 25 and it showed mixed genital marina-10,000 colonies. Stated that PCP did not have time to see her yesterday and recommend she go to the Urgent Care for further evaluation. She is reporting lower abdominal pain- sharp pain that comes and goes. Rates pain currently a 4/10. Hx of diverticulitis, GERD, esophagitis, hiatal hernia, cholecystectomy, hysterectomy, esophageal stricture, constipation, hyperlipidemia, hypertension. Has not taken any medications for her symptoms. Last bowel movement was yesterday-states it was hard and a small amount. Denies any fevers, chills, body aches. No nausea or vomiting. Has been taking cephalexin-last dose was last night. Urine dip was ordered. Labs: Urine shows trace leukocytes. No blood or protein. Plan: Patient is having left sided abdominal pain. History diverticulitis. Recommend transfer to the ER for further evaluation. Patient agrees to transfer and would like to go to [facility] emergency room. Contacted Dr. Morales and report was given for continuity of care. He accepts patient for transfer. Differential Diagnosis Differential diagnosis: Likely urinary tract infection, cystitis and other (Diverticulitis, lower abdominal pain, constipation, colitis) Lab Data Labs: Lab Results 07/30/25 Range/Units 09:56 POC Urine Color Yellow POC Urine Clarity Clear POC Urine pH 7.0 POC Ur Specif [place] 1.010 POC Urine Protein Negative (Negative) POC Ur Glucose (UA) Negative (Negative) POC Urine Ketones Negative (Negative) POC Urine Blood Negative (Negative) POC Urine Nitrite Negative (Negative) POC Urine Bilirubin Negative (Negative) POC Urine Urobilinogen 0.2 POC U Leukocyte Esteras Trace (Negative) Discharge Plan Discharge Clinical Impression: Left sided abdominal pain, History of diverticulitis Patient Disposition: Acute Care Hospital Condition: Stable Patient Language: Citizen Of [place] Prescriptions: No Action metoprolol tartrate 50 mg tablet 100 mg PO Q12H Qty: 360 2RF esomeprazole magnesium [Nexium] 40 mg capsule,delayed release(DR/EC) 40 mg PO DAILY meclizine 25 mg tablet 25 mg PO TID PRN (Reason: dizziness) Qty: 30 0RF multivitamin Tablet 1 tablet PO DAILY buspirone 10 mg tablet 10 mg PO BID PRN (Reason: stress) Qty: 60 0RF cephalexin 250 mg capsule 250 mg PO Q8H 10 Days Qty: 30 0RF Follow-up/Referrals: Rosmery Smith MD [Primary Care Provider, [facility]] Time of Disposition: 10:00 Quality NIHSS Nursing Documentation ED NIHSS nursing documentation: reviewed/agree
[2025-07-30 09:46] VITALS: BP 199/96; PULSE 65; RESP 16; TEMP 36.9; O2SAT 99
[2025-07-30 09:59] LABS: EDUAAPPEAR Clear; EDUABILI Negative (Negative); EDUABLOOD Negative (Negative); EDUACOLOR1 Yellow; EDUAGLUCOSE Negative (Negative); EDUAKETONE Negative (Negative); EDUALEUKO Trace (Negative); EDUANITRATE Negative (Negative); EDUAPH 7.0; EDUAPROTEIN Negative (Negative); EDUASPGRAVITY 1.010; EDUAUROBILI 0.2
== END 2025-07-30 10:03 | disposition short-term general hospital (02) ==
PROVIDERS: Emergency Provider Nurse Practitioner Family; PCP Family Medicine
DX: R10.9 Unspecified abdominal pain (principal); Z87.19 Personal history of other diseases of the digestive system; I10 Essential (primary) hypertension; K21.9 Gastro-esophageal reflux disease without esophagitis; E78.1 Pure hyperglyceridemia; M85.80 Other specified disorders of bone density and structure, unspecified site; E78.5 Hyperlipidemia, unspecified; Z90.89 Acquired absence of other organs
CPT/HCPCS: 81003; 99212; G0463

== ENCOUNTER 2025-07-30 10:37 | Emergency (ER) | payer MEDICARE, SELFPAY ==
--- OUTSIDE RECORDS SUMMARY | 2005-02-12 10:00 | XMS_ITS | Continuity of Care Document ---
Author Organization [facility] Address [address] [place] [address] Phone Care Team Providers Care Sales Order Specialist Name Role Phone Michelle Garza Unavailable Unavailable Advance Directives Directive Yes / No Effective Date File Name No Information Encounters Encounter Description Practice Location Reason(s) For Visit Diagnoses Date Provider Providers Copied on Encounter [facility], [address], [place], [place], [id number], [place] tel:[phone] [facility] No Information 5 Kayla Martinez. [address] , [address], [place], [address], [place]. tel:[phone] Referring Provider: Ty Hirsch, [address] , [place], [address]. tel:[phone] Family History Family Member Type Diagnosis Age At Onset No Information Payers Payer name Insurance type Covered constitution party ID Authoriza tion(s) No Information Social [...]
--- NOTE | ~2025-07-30 | CT_ITS ---
CT abdomen pelvis w con Clinical History: Abdominal pain history of diverticulitis . Comparison: 12/30/2024 Technique: Axial images lung bases to symphysis pubis IV contrast information not listed in PACS Coronal, sagittal reformats CT images acquired with automatic exposure control for dose reduction DLP: 270 mGy-cm Findings: Lung bases: Clear. Visualized heart and pericardium: Unremarkable. Liver: A few cysts. Gallbladder: Removed. Spleen: Unremarkable. Pancreas: Unremarkable. Adrenal glands: Unremarkable. Kidneys: A few small bilateral cysts. Right kidney- No hydronephrosis. No renal stones. Left kidney- No hydronephrosis. No renal stones. Distal esophagus/stomach: Large hiatal hernia/intrathoracic stomach. Small bowel loops: Normal caliber and wall thickness. Colon: Circumferential narrowing proximal sigmoid, with proximal moderate volume stool. Diverticula. Normal RLQ appendix. Nodes: No enlarged nodes. Peritoneum: No ascites. No free air. Urinary bladder: Unremarkable. Uterus: Removed. Adnexa: No masses. Bones: No acute bony abnormality. T10 hemangioma. Soft tissues: Unremarkable. Aorta: No aneurysm or dissection. IVC: Unremarkable. Main portal vein/SMV/splenic vein: Patent. IMPRESSION: 1. Worrisome for sigmoid stricture and/or malignancy. Recommend colonoscopy. 2. No acute abnormality. Reviewed, dictated and finalized at location R.
[2025-07-30 10:47] VITALS: BP 182/90; PULSE 60; RESP 15; TEMP 36.9; O2SAT 99
--- OUTSIDE RECORDS SUMMARY | 2025-07-30 11:04 | XMS_ITS | Clinical Summary ---
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
[2025-07-30 11:28] VITALS: BP 149/91; PULSE 59; RESP 22; O2SAT 97
[2025-07-30 11:29] LABS: Hematocrit 44.1 % (37.0-47.0); Hemoglobin 14.9 g/dL (12.0-15.0); Immature Granulocyte Percent A 0.5 % (0-0.5); Lymphocytes Absolute Auto 1.96 K/mm3 (0.9-3.2); Mean Corpuscular HGB Conc 33.8 g/dl (32-36); Mean Corpuscular Hemoglobin 32.3 pg (26-34); Mean Corpuscular Volume 95.5 fl (80-100); Nucleated Red Blood Cells Absolute Auto 0.000 K/mm3 (0.0-0.012); Nucleated Red Blood Cells Perc 0.0 % (0.0-0.2); Platelet Count Result 300 k/mm3 (150-375); Red Blood Count 4.62 M/mm3 (4.2-5.4); White Blood Count 11.7 K/mm3 (4.5-10.0)
[2025-07-30 11:35] LABS: Add Urine Microscopic? YES; Appearance Urine Clear (Clear); Glucose Urine UA Negative (Negative); Leukocyte Esterase Ur Trace LEU/UL (Negative); Nitrate Urine Negative (Negative); Non Pathogenic Casts 0-2; Specific Grav Ur 1.012 (1.001-1.035)
[2025-07-30 11:43] LABS: Alanine Aminotransferase 13 U/L (6-35); Albumin Level 4.6 g/dL (3.5-5.1); Alkaline Phosphatase 89 U/L (38-126); Anion Gap 8 mmol/L (4-12); Aspartate Amino Transferase 24 U/L (14-36); Bilirubin,Total 1.0 mg/dL (0.2-1.3); Blood Urea Nitrogen 12 mg/dL (7-17); Calcium 10.6 mg/dL (8.4-10.2); Carbon Dioxide 26 mmol/L (22-30); Chloride 99 mmol/L (98-107); Estimated CRCL calculation 43 ml/min; Estimated Glomerular Filt Rate > 60; Glucose 106 mg/dL (65-110); Lipase 76 U/L (23-300); Potassium 4.7 mmol/L (3.4-5.0); Sodium 133 mmol/L (137-145); Total Protein 7.6 g/dL (6.3-8.2)
--- NOTE | 2025-07-30 13:12 | ED_ITS ---
HPI - General Adult General Chief complaint: Abdominal Pain Stated complaint: L. side abd. pain Time Seen by Provider: 07/30/25 10:51 History of Present Illness HPI narrative: Patient is a 85-year-old female who presents emergency department chief complaint of left-sided abdominal pain patient reports he has been having discomfort for the last week reports she has history of diverticulitis the patient states she was recently treated with antibiotics for UTI. Related Data Home Medications ?Medication ?Instructions ?Recorded ?Confirmed ?Last Taken ?Type multivitamin 1 tablet PO DAILY 08/07/21 0 05/26/25 12/31/23 History esomeprazole magnesium 40 mg 40 mg PO DAILY 01/02/24 0 05/26/25 06/08/24 08:00 History capsule,delayed release (Nexium) Allergies Allergy/AdvReac Type Severity Reaction Status Date / Time Antihistamines - Alkylamine Allergy Unknown Unknown Verified 07/30/25 10:40 Sulfa (Sulfonamide Allergy Unknown Unknown Verified 07/30/25 10:40 Antibiotics) Review of Systems 2 Review of Systems: A 10 system review of systems was completed on the patient and is negative except for what is stated in the HPI. Nursing and ancillary documentation was reviewed. [facility] Past Medical History Medical History Blurred vision, left eye Redness of eye, left History of colitis Elevated fecal calprotectin Kidney stones Esophageal stricture Vitamin D deficiency Adenomatous colon polyp Gastroesophageal reflux disease Essential hypertension Intermittent low back pain Hiatal hernia Esophagitis Sciatica Hypertriglyceridemia Osteopenia Surgical History Surgical History History of colonoscopy with polypectomy History of hysterectomy (1989) History of cholecystectomy (1989) History of esophageal dilatation (1990) History of partial thyroidectomy (Unknown) Left. Family History Family History Father Family history of cardiovascular disease Mother Carcinoma of colon Sibling Heart attack Social History Social History Social History: Surrogate decision maker: Morris Min, spouse. Code status: Full code. Smoking status: Never smoker Second hand tobacco smoke exposure: No Alcohol intake: never Substance use: never Substance use type: does not use Do You Feel Safe in your Home?: Yes Lack of Transportation: No Lack of Food: Never True Current Housing: I Have Housing Concerned About Future Housing: No Difficulty Paying Gas/Electric Bills: No Difficulty Paying for Meds: No Currently Unemployed: No Education: High School Diploma/GED Difficulty w/ Childcare or Family Care: No Living arrangements: with family Additional living arrangements comments: The patient lives in [place] with her . Occupation/Education: retired Additional occupation/education comments: Retired. Spiritual care concerns: No Agree to blood products: Yes Exam 2 Narrative: GENERAL: Well-appearing, well-nourished, and in no acute distress. HEAD: Normocephalic, atraumatic. EYES: PERRLA and EOMI. ENT: Nares clear, no rhinorrhea or epistaxis. Mucous membranes moist. NECK: Supple. CHEST: Clear to auscultation. No respiratory distress. HEART: Regular rate and rhythm. No murmur heard. Normal peripheral pulses. ABDOMEN: Soft, tenderness to palpation left lower quadrant, nondistended, normal active bowel sounds. EXTREMITIES: Normal range of motion. No edema. SKIN: Warm, dry, no rash. NEURO: No focal deficits. Alert and oriented x3. PSYCH: Normal mood and affect. Course Vital Signs Vital signs: Vital Signs Temperature 36.9 C 07/30/25 10:47 Pulse Rate 60 07/30/25 10:47 Respiratory Rate 15 07/30/25 10:47 Blood Pressure 182/90 H 07/30/25 10:47 Pulse Oximetry 99 07/30/25 10:47 Oxygen Delivery Room Air 07/30/25 10:47 Temperature 36.9 C 07/30/25 10:47 Pulse Rate 80 07/30/25 13:37 Respiratory Rate 18 07/30/25 13:37 Blood Pressure 168/90 H 07/30/25 13:37 Pulse Oximetry 98 07/30/25 13:37 Oxygen Delivery Room Air 07/30/25 10:47 Medical Decision Making Vital Signs Vital Signs: Vital Signs Temperature 36.9 C 07/30/25 10:47 Pulse Rate 60 07/30/25 10:47 Respiratory Rate 15 07/30/25 10:47 Blood Pressure 182/90 H 07/30/25 10:47 Pulse Oximetry 99 07/30/25 10:47 Oxygen Delivery Room Air 07/30/25 10:47 Temperature 36.9 C 07/30/25 10:47 Pulse Rate 80 07/30/25 13:37 Respiratory Rate 18 07/30/25 13:37 Blood Pressure 168/90 H 07/30/25 13:37 Pulse Oximetry 98 07/30/25 13:37 Oxygen Delivery Room Air 07/30/25 10:47 Lab Data 07/30/25 11:08 07/30/25 11:08 Labs: Lab Results 07/30/25 Range/Units 11:08 WBC 11.7 H (4.5-10.0) K/mm3 RBC 4.62 (4.2-5.4) M/mm3 Hgb 14.9 (12.0-15.0) g/dL Hct 44.1 (37.0-47.0) % MCV 95.5 (80-100) fl MCH 32.3 (26-34) pg MCHC 33.8 (32-36) g/dl RDW 12.2 (11.5-14.5) % Plt Count 300 (150-375) k/mm3 MPV 9.1 (7.4-10.4) fl Immature Gran % (Auto) 0.5 (0-0.5) % Neut % (Auto) 77.2 H (45.5-73.1) % Lymph % (Auto) 16.8 L (18.3-44.2) % [place] % (Auto) 4.8 (2.6-8.5) % Eos % (Auto) 0.4 (0-4.4) % Baso % (Auto) 0.3 (0.2-1.2) % Lymph # (Auto) 1.96 (0.9-3.2) K/mm3 [place] # (Auto) 0.6 (0.1-0.6) K/mm3 Eos # (Auto) 0.1 (0-0.3) K/mm3 Baso # (Auto) 0.0 (0.0-0.1) K/mm3 Abs Immat Gran (auto) 0.06 H (0.00-0.031) K/mm3 Absolute Neuts (auto) 9.0 H (1.3-6.7) K/mm3 Absolute Nucleated RBC 0.000 (0.0-0.012) K/mm3 Nucleated RBC % 0.0 (0.0-0.2) % Sodium 133 L (137-145) mmol/L Potassium 4.7 (3.4-5.0) mmol/L Chloride 99 (98-107) mmol/L Carbon Dioxide 26 (22-30) mmol/L Anion Gap 8 (4-12) mmol/L BUN 12 (7-17) mg/dL Creatinine 0.77 (0.7-1.0) mg/dL Estim Creat Clear Calc 43 ml/min Estimated GFR > 60 (59 - ) Glucose 106 (65-110) mg/dL Lactic Acid 0.9 (0.7-2.0) mmol/L Calcium 10.6 H (8.4-10.2) mg/dL Total Bilirubin 1.0 (0.2-1.3) mg/dL AST 24 (14-36) U/L ALT 13 (6-35) U/L Alkaline Phosphatase 89 (38-126) U/L Total Protein 7.6 (6.3-8.2) g/dL Albumin 4.6 (3.5-5.1) g/dL Lipase 76 (23-300) U/L Urine Color Yellow (Yellow) Urine Appearance Clear (Clear) Urine pH 7.5 (5.0-9.0) Ur Specific [place] 1.012 (1.001-1.035) Urine Protein Negative (Negative) mg/dL Urine Glucose (UA) Negative (Negative) mg/dL Urine Ketones Negative (Negative) mg/dL Ur Blood (Man) Negative (Negative) Urine Nitrate Negative (Negative) Urine Bilirubin Negative (Negative) Urine Urobilinogen 1.0 (<2.0) mg/dL Leukocyte Esterase Rfl Trace H (Negative) LIA/UL Urine RBC 0-2 (0-2) /hpf Urine WBC 0-5 (0-3) /hpf Ur Squamous Epith Cells None seen (Few) /hpf Urine Bacteria None seen /hpf Urine Casts 0-2 Discharge Plan Discharge Clinical Impression: Abdominal pain Patient Disposition: Home Condition: Stable Instructions: Antibiotic Form, Abdominal Pain (ED) Additional Instructions: The CT scan showed a narrowing in your intestines. It is recommended that you follow-up with Gastroenterology this week they will plan on doing additional testing as an outpatient if you develop severe abdominal pain nausea and vomiting please return to the emergency department immediately Patient Language: [place]se Prescriptions: No Action metoprolol tartrate 50 mg tablet 100 mg PO Q12H Qty: 360 2RF esomeprazole magnesium [Nexium] 40 mg capsule,delayed release(DR/EC) 40 mg PO DAILY meclizine 25 mg tablet 25 mg PO TID PRN (Reason: dizziness) Qty: 30 0RF multivitamin Tablet 1 tablet PO DAILY buspirone 10 mg tablet 10 mg PO BID PRN (Reason: stress) Qty: 60 0RF cephalexin 250 mg capsule 250 mg PO Q8H 10 Days Qty: 30 0RF Follow-up/Referrals: Rosmery Smith MD [Primary Care Provider, Family Practice] Mike Bah MD [Physician, Gastroenterology] Time of Disposition: 13:31
[2025-07-30 13:27] VITALS: BP 168/90; PULSE 61; RESP 20; O2SAT 95
[2025-07-30 13:37] VITALS: BP 168/90; PULSE 80; RESP 18; O2SAT 98
== END 2025-07-30 13:39 | disposition home or self-care (01) ==
PROVIDERS: Emergency Provider Emergency Medicine; PCP Family Medicine
DX: R10.32 Left lower quadrant pain (principal); I10 Essential (primary) hypertension; E55.9 Vitamin D deficiency, unspecified; E89.0 Postprocedural hypothyroidism; E78.1 Pure hyperglyceridemia; K44.9 Diaphragmatic hernia without obstruction or gangrene; K21.00 Gastro-esophageal reflux disease with esophagitis, without bleeding; M85.80 Other specified disorders of bone density and structure, unspecified site; Z87.442 Personal history of urinary calculi; Z86.0101 Personal history of adenomatous and serrated colon polyps; Z90.710 Acquired absence of both cervix and uterus; Z90.49 Acquired absence of other specified parts of digestive tract
CPT/HCPCS: 36415; 74177; 80053; 81001; 83605; 83690; 85025; 99284; Q9967

== ENCOUNTER 2025-09-14 09:26 | Outpatient (CLI) | payer MEDICARE, SELFPAY ==
--- OUTSIDE RECORDS SUMMARY | 2005-02-12 09:00 | XMS_ITS | Continuity of Care Document ---
Author Organization [facility] Address [address] [place] [address] Phone Care Team Providers Care Manager Programming Name Role Phone Michelle Garza Unavailable Unavailable Advance Directives Directive Yes / No Effective Date File Name No Information Encounters Encounter Description Practice Location Reason(s) For Visit Diagnoses Date Provider Providers Copied on Encounter [facility], [address], [place], [place], [id number], [place] tel:[phone] [facility] No Information 5 Kayla Martinez. [address] , [address], [place], [address], [place]. tel:[phone] Referring Provider: Ty Hirsch, [address] , [place], [address]. tel:[phone] Family History Family Member Type Diagnosis Age At Onset No Information Payers Payer name Insurance type Covered alliance party ID Authoriza tion(s) No Information Social History Type Description Quantity Date Captured Comments Sex Female Smoking Status No Information Chief Complaint And Reason For Visit No Information Reason For Referral Reason For Referral No Information History Of Present Illness Encounter Date Complaint History Of Prese nt Illness No Information Functional Status Date Functional Assessmen t No Information Instructions Date Instruction Additional Infor mation No Information Assessments Type Assessment Date No Information Patient Care Teams Name Effective Dates (start - stop) Status Members No Information
--- OUTSIDE RECORDS SUMMARY | 2005-02-12 09:00 | XMS_ITS | Continuity of Care Document ---
Author Organization [facility] Address [address] [place] [address] Phone Care Team Providers Care Manager Employee Benefits Name Role Phone Michelle Garza Unavailable Unavailable Advance Directives Directive Yes / No Effective Date File Name No Information Encounters Encounter Description Practice Location Reason(s) For Visit Diagnoses Date Provider Providers Copied on Encounter [facility], [address], [place], [place], [id number], [place] tel:[phone] [facility] No Information 5 Kayla Martinez. [address] , [address], [place], [address], [place]. tel:[phone] Referring Provider: Ty Hirsch, [address] , [place], [address]. tel:[phone] Family History Family Member Type Diagnosis Age At Onset No Information Payers Payer name Insurance type Covered green party ID Authoriza tion(s) No Information Social [...]
--- OUTSIDE RECORDS SUMMARY | 2005-02-12 09:00 | XMS_ITS | Continuity of Care Document ---
Author Organization [facility] Address [address] [place] [address] Phone Care Team Providers Care Rotoprinter Name Role Phone Michelle Garza Unavailable Unavailable Advance Directives Directive Yes / No Effective Date File Name No Information Encounters Encounter Description Practice Location Reason(s) For Visit Diagnoses Date Provider Providers Copied on Encounter [facility], [address], [place], [place], [id number], [place] tel:[phone] [facility] No Information 5 Kayla Martinez. [address] , [address], [place], [address], [place]. tel:[phone] Referring Provider: Ty Hirsch, [address] , [place], [address]. tel:[phone] Family History Family Member Type Diagnosis Age At Onset No Information Payers Payer name Insurance type Covered democrat ID Authoriza tion(s) No Information Social History [...]
--- OUTSIDE RECORDS SUMMARY | 2005-02-12 09:00 | XMS_ITS | Continuity of Care Document ---
Author Organization [facility] Address [address] [place] [address] Phone Care Team Providers Care Real Estate Intern Name Role Phone Michelle Garza Unavailable Unavailable Advance Directives Directive Yes / No Effective Date File Name No Information Encounters Encounter Description Practice Location Reason(s) For Visit Diagnoses Date Provider Providers Copied on Encounter [facility], [address], [place], [place], [id number], [place] tel:[phone] [facility] No Information 5 Kayla Martinez. [address] , [address], [place], [address], [place]. tel:[phone] Referring Provider: Ty Hirsch, [address] , [place], [address]. tel:[phone] Family History Family Member Type Diagnosis Age At Onset No Information Payers Payer name Insurance type Covered libertarian ID Authoriza tion(s) No Information Social History [...]
--- OUTSIDE RECORDS SUMMARY | 2005-02-12 09:00 | XMS_ITS | Continuity of Care Document ---
Author Organization [facility] Address [address] [place] [address] Phone Care Team Providers Care Area Attendant Name Role Phone Michelle Garza Unavailable Unavailable Advance Directives Directive Yes / No Effective Date File Name No Information Encounters Encounter Description Practice Location Reason(s) For Visit Diagnoses Date Provider Providers Copied on Encounter [facility], [address], [place], [place], [address], [place] tel:[phone] [facility] No Information 5 Kayla Martinez. [address] , [address], [place], [address], [place]. tel:[phone] Referring Provider: Ty Hirsch, [address] , [place], [address]. tel:[phone] Family History Family Member Type Diagnosis Age At Onset No Information Payers Payer name Insurance type Covered republican ID Authoriza tion(s) No Information Social History [...]
--- OUTSIDE RECORDS SUMMARY | 2025-09-14 12:28 | XMS_ITS | Clinical Summary ---
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
[2025-09-14 13:09] LABS: Hematocrit 43.0 % (37.0-47.0); Hemoglobin 14.3 g/dL (12.0-15.0); Immature Granulocyte Percent A 0.2 % (0-0.5); Lymphocytes Absolute Auto 2.24 K/mm3 (0.9-3.2); Mean Corpuscular HGB Conc 33.3 g/dl (32-36); Mean Corpuscular Hemoglobin 32.6 pg (26-34); Mean Corpuscular Volume 98.2 fl (80-100); Nucleated Red Blood Cells Absolute Auto 0.000 K/mm3 (0.0-0.012); Nucleated Red Blood Cells Perc 0.0 % (0.0-0.2); Platelet Count Result 271 k/mm3 (150-375); Red Blood Count 4.38 M/mm3 (4.2-5.4); White Blood Count 9.1 K/mm3 (4.5-10.0)
[2025-09-14 16:45] LABS: Alanine Aminotransferase 10 U/L (6-35); Albumin Level 4.1 g/dL (3.5-5.1); Alkaline Phosphatase 89 U/L (38-126); Anion Gap 7 mmol/L (4-12); Aspartate Amino Transferase 31 U/L (14-36); Bilirubin,Total 0.8 mg/dL (0.2-1.3); Blood Urea Nitrogen 10 mg/dL (7-17); Calcium 10.2 mg/dL (8.4-10.2); Carbon Dioxide 26 mmol/L (22-30); Chloride 99 mmol/L (98-107); Estimated Glomerular Filt Rate > 60; Glucose 73 mg/dL (65-110); Potassium 4.0 mmol/L (3.4-5.0); Sodium 132 mmol/L (137-145); Total Protein 6.8 g/dL (6.3-8.2)
== END 2025-09-14 09:27 | disposition home or self-care (01) ==
LOC: ANHGOSHLAB 09:28
PROVIDERS: PCP Family Medicine
DX: E78.2 Mixed hyperlipidemia (principal); R53.83 Other fatigue
CPT/HCPCS: 36415; 80053; 85025